=== PATIENT | female | born 1985 | race Caucasian/White ===

== ENCOUNTER 2017-04-20 09:02 | Emergency (ER) | payer OTHER ==
[~2017-04-20] VITALS: Ht 165.1 cm; Wt 117.9 kg
[~2017-04-20 09:02] MED LIST: ACET325; ACET500; ALBU.083IS; ALBU90I INH; ALBU90OI INH; AMOCLA500 PO; AMOX500 PO; ANCEF 1 GM1 GM/50 ML IV; ATEN50 PO; BENZ100A PO; BUPR1 PO; CELE200 PO; CEPH500 PO; CETI10 PO; CLIN150 PO; CLIN300 PO; CLON.1 PO; CLOT1TC TOP; COMBIVENT RESPIM4 GM INH; CYCL10; CYCL10 PO; CYMBALTA; Cymbalta30 MG PO; DIAZ5 PO; DIPH25; DIPH50 PO; DOXY100 PO; DULO30 PO; DULO60 PO; Diflucan100 MG PO; ESCI5 PO; ESTNORT; FLUC150A PO; FLUC200 PO; GABA100 PO; GABA300 PO; GABA400 PO; GABA600 PO; GABAPENTIN; HYDACE10 PO; HYDACE5 PO; HYDCHLSU PO; HYDPAM50 PO; IBUP800; KETO10 PO; LANS30EC PO; LEVO750 PO; LIDO2L MM; LORA1 PO; MEDR150I; METCAR750; METO25 PO; METO50 PO; MULVITMINE; NAPR500 PO; NYST100SU PO; NYST100TC TOP; OMEP20ER PO; ONDA4 PO; ONDA4ODT MM; OXYACE10 PO; OXYACE5T PO; OXYACE7.5T PO; OXYC5 PO; PENNAL50 PO; PENVK500 PO; PERM5TC TOP; PIOG15 PO; PRAZ1 PO; PRAZ2 PO; PRAZOSIN 2 MG; PRED10 PO; PRED20 PO; PRILOSEC; PRILOSEC OTC; PROACE100 PO; PROM25 PO; RANI150 PO; RXCYCL10 PO; RXHYD5325 PO; RXHYDACE PO; RXOXYACE PO; RXSULTRIDS PO; RXTRAM50 PO; SUBOXONE; SUBOXONE 12 MG1 EACH SL; SUBOXONE 2 MG-1 EACH SL; SUCR1 PO; SULTRIDS PO; TERC.4TC PV; TRAM50 PO; TRAZ100; TRAZ50; TRAZ50 PO; TRAZADONE; TYLENOL AND MOTRIN; TYLENOL/ADVIL; TYLENOL/MOTRIN PRN; WARF3 PO; Zofran8 MG PO
[2017-04-20 11:50] LABS: Calcium, Ionized (POC) 1.08 mmol/L (1.10-1.46); Chloride (POC) 100 mmol/L (98-108); Glucose (ISTAT POC) 115 mg/dL (70-99); Hemoglobin (POC) 15.6 g/dL (12.0-16.0); Potassium (POC) 4.2 mmol/L (3.5-5.5); Sodium (POC) 137 mmol/L (135-148); Total CO2 (POC) 26 mmol/L (21-32)
[2017-04-20] MEDS ORDERED: PROM25 PO (12:19)
[2017-09-06] MEDS ORDERED: Lisinopril2.5 MG PO (16:01)
[2017-09-06] MEDS ORDERED: Prilosec Otc20 MG PO (16:01)
[2017-09-06] MEDS ORDERED: PROM25 PO (16:50)
[2017-09-06] MEDS ORDERED: CLON.2 PO (16:50)
[2017-10-21] MEDS ORDERED: PROM25 PO (16:26)
[2017-10-21] MEDS ORDERED: Catapres0.1 MG PO (16:26)
[2017-11-21] MEDS ORDERED: Lisinopril2.5 MG (17:25)
[2017-11-21] MEDS ORDERED: QUET100 PO (17:25)
[2017-11-21] MEDS ORDERED: Clonidine HCl0.2 MG PO (20:25)
[2017-11-21] MEDS ORDERED: Zofran Odt4 MG SL (20:29)
[2018-01-25] MEDS ORDERED: GABA400 PO (15:57)
[2018-01-25] MEDS ORDERED: ALBU90OI INH (15:58)
[2018-01-25] MEDS ORDERED: PROM25S (15:59)
[2018-01-25] MEDS ORDERED: NARCAN4 MG (15:59)
[2018-01-25] MEDS ORDERED: Milk Of Ma400 MG/5 M PO (16:01)
[2018-01-25] MEDS ORDERED: DULO60 PO (16:02)
[2018-01-25] MEDS ORDERED: METO100ER PO (16:03)
[2018-01-25] MEDS ORDERED: OLAN10 PO (16:03)
== END 2017-04-20 12:30 | disposition home or self-care (01) ==
LOC: ER 09:02
PROVIDERS: Emergency Medicine
DX: G43.909 Migraine, unspecified, not intractable, without status migrainosus (principal); R11.2 Nausea with vomiting, unspecified; E86.0 Dehydration; F32.9 Major depressive disorder, single episode, unspecified; F17.210 Nicotine dependence, cigarettes, uncomplicated; Z88.5 Allergy status to narcotic agent; Z88.8 Allergy status to other drugs, medicaments and biological substances; Z79.899 Other long term (current) drug therapy
CPT/HCPCS: 36415; 80047; 85014; 96361; 96374; 96375; 99284; J1200; J1630; J1885; J2550; J7030

== ENCOUNTER 2017-09-18 17:23 | Emergency (ER) | payer OTHER ==
[~2017-09-18] VITALS: Ht 167.6 cm; Wt 104.3 kg
[~2017-09-18 17:23] MED LIST changes: +CLON.2 PO; +Lisinopril2.5 MG PO; +Prilosec Otc20 MG PO
[2017-09-18 17:54] LABS: Source, Urine Voided
[2017-09-18 18:00] LABS: Blood, Urine 4+ (Neg); Glucose Qualitative, Urine Neg (Neg); Ketones, Urine 4+ (Neg); Leukocyte Esterase, Urine 1+ (Neg); Nitrite, Urine Neg (Neg); Protein, Urine 2+ (Neg); Specific Gravity, Urine 1.015 (1.003-1.022); Urobilinogen, Urine 2+ (Normal)
[2017-09-18 18:25] LABS: Appearance, Urine Cloudy (Clear); Bilirubin, Urine 1+ (Neg); Color, Urine Amber (P-Yellow)
[2017-09-18 18:27] LABS: Source, Urine Voided
[2017-09-18 18:45] LABS: BASOPHILS ABSOLUTE AUTO 0.05 K/mm3 (0.00-0.23); BASOPHILS PERCENT AUTO 0 % (0-2); EOSINOPHILS PERCENT AUTO 0 % (0-6); Hematocrit 44.4 % (33.0-51.0); Hemoglobin 14.7 g/dL (11.5-16.0); IMMATURE GRAN PERCENT AUTO 1 % (0-1); LYMPHOCYTES ABSOLUTE AUTO 1.03 K/mm3 (0.84-5.20); LYMPHOCYTES PERCENT AUTO 5 % (21-46); MONOCYTES ABSOLUTE AUTO 0.78 K/mm3 (0.16-1.47); MONOCYTES PERCENT AUTO 4 % (4-13); Mean Corpuscular HGB 26.6 pg (26.0-34.0); Mean Corpuscular HGB Conc 33.1 g/dL (31.5-36.5); Mean Corpuscular Volume 80 fL (80-100); Mean Platelet Volume 9.5 fL (9.1-12.4); NEUTROPHILS PERCENT AUTO 91 % (41-73); Platelet Count 493 K/mm3 (150-400); RDW Coefficient Variation 18.8 % (11.7-14.2); RDW Standard Deviation 52.2 fL (35.1-46.3); Red Blood Cell Count 5.53 M/mm3 (3.80-5.20); White Blood Cell Count 21.76 K/mm3 (4.00-11.30)
[2017-09-18 18:55] LABS: Alanine Aminotransfer (ALT/SGP 19 U/L (12-78); Albumin, Blood 3.6 g/dL (3.4-5.0); Albumin/Globulin Ratio 0.7 (0.8-1.8); Alk Phos 86 U/L (50-136); Anion Gap 14 mmol/L (6-16); Aspartate Aminotrans (AST/SGOT 18 U/L (12-37); Bilirubin, Total 0.3 mg/dL (0.1-1.0); Blood Urea Nitrogen 10 mg/dL (8-24); Bun/Creatinine Ratio 13.7 (12.0-20.0); CO2, Blood 18 mmol/L (21-32); Calcium, Blood 9.5 mg/dL (8.5-10.1); Chloride, Blood 105 mmol/L (98-108); Creatinine, Blood 0.73 mg/dL (0.40-1.00); Globulin, Blood 5.2 g/dL (2.2-4.0); Glomerular Filtration Rate >60 (60-); Glucose, Blood 91 mg/dL (70-99); Potassium, Blood 3.7 mmol/L (3.5-5.5); Sodium, Blood 137 mmol/L (136-145); Total Protein, Blood 8.8 g/dL (6.4-8.2)
[2017-09-18 19:39] LABS: Bacteria Many /hpf; Red Blood Cells, Urine 0-2 /hpf (0-2); Squamous Epithelial Cells Mod /hpf (Few)
[2017-09-18] MEDS ORDERED: PROM25 PO (20:32)
== END 2017-09-18 20:51 | disposition home or self-care (01) ==
LOC: ER 17:23
PROVIDERS: Emergency Medicine
DX: R11.2 Nausea with vomiting, unspecified (principal); Z76.5 Malingerer [conscious simulation]; K21.9 Gastro-esophageal reflux disease without esophagitis; F17.200 Nicotine dependence, unspecified, uncomplicated; Z79.899 Other long term (current) drug therapy
CPT/HCPCS: 36415; 80053; 81015; 81025; 83690; 85025; 87086; 96361; 96374; 96375; 99284-25; J0780; J1200; J1630; J2405; J2550; J7030

== ENCOUNTER 2017-09-19 00:54 | Emergency (ER) | payer OTHER ==
[~2017-09-19] VITALS: Ht 167.6 cm; Wt 104.3 kg
[2017-09-19 03:27] LABS: BASOPHILS ABSOLUTE AUTO 0.03 K/mm3 (0.00-0.23); BASOPHILS PERCENT AUTO 0 % (0-2); EOSINOPHILS ABSOLUTE AUTO 0.01 K/mm3 (0.00-0.68); EOSINOPHILS PERCENT AUTO 0 % (0-6); Hematocrit 39.2 % (33.0-51.0); Hemoglobin 13.1 g/dL (11.5-16.0); IMMATURE GRAN ABSOLUTE AUTO 0.07 K/mm3 (0.00-0.10); IMMATURE GRAN PERCENT AUTO 0 % (0-1); LYMPHOCYTES ABSOLUTE AUTO 2.36 K/mm3 (0.84-5.20); LYMPHOCYTES PERCENT AUTO 11 % (21-46); MONOCYTES ABSOLUTE AUTO 1.19 K/mm3 (0.16-1.47); MONOCYTES PERCENT AUTO 6 % (4-13); Mean Corpuscular HGB 26.9 pg (26.0-34.0); Mean Corpuscular HGB Conc 33.4 g/dL (31.5-36.5); Mean Corpuscular Volume 81 fL (80-100); Mean Platelet Volume 9.3 fL (9.1-12.4); NEUTROPHILS ABSOLUTE AUTO 16.96 K/mm3 (1.96-9.15); NEUTROPHILS PERCENT AUTO 82 % (41-73); Platelet Count 438 K/mm3 (150-400); RDW Coefficient Variation 18.3 % (11.7-14.2); RDW Standard Deviation 54.3 fL (35.1-46.3); Red Blood Cell Count 4.87 M/mm3 (3.80-5.20); White Blood Cell Count 20.62 K/mm3 (4.00-11.30)
[2017-09-19 03:45] LABS: Alanine Aminotransfer (ALT/SGP 18 U/L (12-78); Albumin, Blood 3.3 g/dL (3.4-5.0); Albumin/Globulin Ratio 0.7 (0.8-1.8); Alk Phos 73 U/L (50-136); Anion Gap 15 mmol/L (6-16); Aspartate Aminotrans (AST/SGOT 15 U/L (12-37); Bilirubin, Total 0.4 mg/dL (0.1-1.0); Blood Urea Nitrogen 7 mg/dL (8-24); CO2, Blood 19 mmol/L (21-32); Calcium, Blood 8.9 mg/dL (8.5-10.1); Chloride, Blood 106 mmol/L (98-108); Globulin, Blood 4.8 g/dL (2.2-4.0); Glomerular Filtration Rate >60 (60-); Glucose, Blood 71 mg/dL (70-99); Potassium, Blood 3.8 mmol/L (3.5-5.5); Sodium, Blood 140 mmol/L (136-145); Total Protein, Blood 8.1 g/dL (6.4-8.2)
[2017-09-19 04:21] LABS: Source, Urine Clean Catch
[2017-09-19 04:24] LABS: Bilirubin, Urine Neg (Neg); Blood, Urine 4+ (Neg); Glucose Qualitative, Urine Neg (Neg); Ketones, Urine 4+ (Neg); Leukocyte Esterase, Urine 1+ (Neg); Nitrite, Urine Neg (Neg); Protein, Urine 1+ (Neg); Specific Gravity, Urine 1.015 (1.003-1.022); Urobilinogen, Urine NORM (Normal)
[2017-09-19 04:32] LABS: Appearance, Urine Clear (Clear); Bacteria Many /hpf; Color, Urine Yellow (P-Yellow); Mucus Light (0-Heavy); Red Blood Cells, Urine 0-2 /hpf (0-2); Squamous Epithelial Cells Many /hpf (Few); White Blood Cells, Urine 0-2 /hpf (0-5)
== END 2017-09-19 05:02 | disposition home or self-care (01) ==
LOC: ER 00:54
PROVIDERS: Emergency Medicine
DX: R11.2 Nausea with vomiting, unspecified (principal); F32.9 Major depressive disorder, single episode, unspecified; F17.210 Nicotine dependence, cigarettes, uncomplicated; Z79.899 Other long term (current) drug therapy
CPT/HCPCS: 80053; 81001; 83690; 85025; 87086; 96361; 96374; 99284-25; J2550; J7120

== ENCOUNTER → 2017-09-27 | Outpatient (CLI) | payer OTHER ==
[~2017-09-27] MED LIST changes: +BUPRENORPHIN-N1 EACH SL; +Flagyl500 MG PO; +QUET100 PO; +ZOLP5 PO
[2017-09-27 18:05] LABS: BASOPHILS ABSOLUTE AUTO 0.07 K/mm3 (0.00-0.23); BASOPHILS PERCENT AUTO 0 % (0-2); EOSINOPHILS PERCENT AUTO 1 % (0-6); Hematocrit 47.3 % (33.0-51.0); Hemoglobin 15.9 g/dL (11.5-16.0); IMMATURE GRAN ABSOLUTE AUTO 0.09 K/mm3 (0.00-0.10); IMMATURE GRAN PERCENT AUTO 1 % (0-1); LYMPHOCYTES ABSOLUTE AUTO 3.05 K/mm3 (0.84-5.20); LYMPHOCYTES PERCENT AUTO 18 % (21-46); MONOCYTES ABSOLUTE AUTO 0.86 K/mm3 (0.16-1.47); MONOCYTES PERCENT AUTO 5 % (4-13); Mean Corpuscular HGB 27.2 pg (26.0-34.0); Mean Corpuscular HGB Conc 33.6 g/dL (31.5-36.5); Mean Corpuscular Volume 81 fL (80-100); Mean Platelet Volume 9.7 fL (9.1-12.4); NEUTROPHILS ABSOLUTE AUTO 12.91 K/mm3 (1.96-9.15); NEUTROPHILS PERCENT AUTO 76 % (41-73); Platelet Count 597 K/mm3 (150-400); RDW Coefficient Variation 19.9 % (11.7-14.2); Red Blood Cell Count 5.84 M/mm3 (3.80-5.20); White Blood Cell Count 17.08 K/mm3 (4.00-11.30)
[2017-09-27 18:12] LABS: Bun/Creatinine Ratio 8.3 (12.0-20.0); Calcium, Blood 9.7 mg/dL (8.5-10.1); Creatinine, Blood 1.33 mg/dL (0.40-1.00); Potassium, Blood 3.9 mmol/L (3.5-5.5)
== END ==
LOC: LAB EV 18:00 → LAB SHORT 18:00
PROVIDERS: Family Medicine
DX: R10.813 Right lower quadrant abdominal tenderness (principal)
CPT/HCPCS: 80048; 85025

== ENCOUNTER 2017-09-28 14:00 | Emergency (ER) | payer OTHER ==
[~2017-09-28] VITALS: Ht 167.6 cm; Wt 104.3 kg
[~2017-09-28 14:00] MED LIST changes: -BUPRENORPHIN-N1 EACH SL; -Flagyl500 MG PO; -QUET100 PO; -ZOLP5 PO
[2017-09-28 15:02] LABS: BASOPHILS ABSOLUTE AUTO 0.05 K/mm3 (0.00-0.23); BASOPHILS PERCENT AUTO 0 % (0-2); EOSINOPHILS ABSOLUTE AUTO 0.13 K/mm3 (0.00-0.68); EOSINOPHILS PERCENT AUTO 1 % (0-6); Hematocrit 45.1 % (33.0-51.0); Hemoglobin 14.6 g/dL (11.5-16.0); IMMATURE GRAN ABSOLUTE AUTO 0.08 K/mm3 (0.00-0.10); IMMATURE GRAN PERCENT AUTO 0 % (0-1); LYMPHOCYTES ABSOLUTE AUTO 1.98 K/mm3 (0.84-5.20); LYMPHOCYTES PERCENT AUTO 11 % (21-46); MONOCYTES ABSOLUTE AUTO 1.56 K/mm3 (0.16-1.47); MONOCYTES PERCENT AUTO 9 % (4-13); Mean Corpuscular HGB 26.2 pg (26.0-34.0); Mean Corpuscular HGB Conc 32.4 g/dL (31.5-36.5); Mean Corpuscular Volume 81 fL (80-100); Mean Platelet Volume 9.8 fL (9.1-12.4); NEUTROPHILS ABSOLUTE AUTO 14.14 K/mm3 (1.96-9.15); NEUTROPHILS PERCENT AUTO 79 % (41-73); Platelet Count 530 K/mm3 (150-400); RDW Coefficient Variation 19.7 % (11.7-14.2); RDW Standard Deviation 55.6 fL (35.1-46.3); Red Blood Cell Count 5.57 M/mm3 (3.80-5.20); White Blood Cell Count 17.94 K/mm3 (4.00-11.30)
[2017-09-28 15:11] LABS: Albumin, Blood 3.3 g/dL (3.4-5.0); Albumin/Globulin Ratio 0.6 (0.8-1.8); Bilirubin, Total 0.3 mg/dL (0.1-1.0); Bun/Creatinine Ratio 9.1 (12.0-20.0); Calcium, Blood 9.4 mg/dL (8.5-10.1); Creatinine, Blood 1.21 mg/dL (0.40-1.00); Globulin, Blood 5.3 g/dL (2.2-4.0); Potassium, Blood 3.6 mmol/L (3.5-5.5); Total Protein, Blood 8.6 g/dL (6.4-8.2)
[2017-09-28] MEDS ORDERED: BUPRENORPHIN-N1 EACH SL (15:13)
[2017-09-28] MEDS ORDERED: GABA400 PO (15:13)
[2017-09-28] MEDS ORDERED: QUET100 PO (15:14)
[2017-09-28] MEDS ORDERED: ZOLP5 PO (15:14)
[2017-09-28 15:21] LABS: Source, Urine Clean Catch
[2017-09-28 15:27] LABS: Appearance, Urine Hazy (Clear); Bilirubin, Urine Neg (Neg); Blood, Urine 1+ (Neg); Color, Urine Yellow (P-Yellow); Glucose Qualitative, Urine Neg (Neg); Ketones, Urine Neg (Neg); Leukocyte Esterase, Urine Neg (Neg); Nitrite, Urine Neg (Neg); Protein, Urine 1+ (Neg); Urobilinogen, Urine NORM (Normal)
[2017-09-28 16:04] LABS: Bacteria Many /hpf; Red Blood Cells, Urine 0-2 /hpf (0-2); Squamous Epithelial Cells Many /hpf (Few); White Blood Cells, Urine 0-2 /hpf (0-5)
[2017-09-28] MEDS ORDERED: ONDA4ODT MM (20:38)
[2017-09-28] MEDS ORDERED: Flagyl500 MG PO (20:38)
[2017-09-28 21:20] LABS: U Amphetamine Screen Not Detected
[2017-09-28 21:21] LABS: U Barbituate Screen Not Detected; U Benzodiazapine Screen Not Detected; U Buprenorphine Screen DETECTED; U Cannabinoids Screen Not Detected; U Cocaine Screen Not Detected; U Methadone Screen Not Detected; U Methamphetamine Screen Not Detected; U Opiates Screen Not Detected; U Oxycodone Screen Not Detected; U Phencyclidine Screen Not Detected; U Propoxyphene Screen Not Detected
== END 2017-09-28 21:08 | disposition home or self-care (01) ==
LOC: ER 14:00
PROVIDERS: Emergency Medicine; Physician Assistant
DX: K52.9 Noninfective gastroenteritis and colitis, unspecified (principal); E86.0 Dehydration; N17.9 Acute kidney failure, unspecified; Z88.8 Allergy status to other drugs, medicaments and biological substances; Z88.5 Allergy status to narcotic agent; Z79.899 Other long term (current) drug therapy; F17.210 Nicotine dependence, cigarettes, uncomplicated; F32.9 Major depressive disorder, single episode, unspecified
CPT/HCPCS: 36415; 80053; 81001; 81025; 82947; 83605; 83690; 85025; 87086; 96361; 96365; 96375; 99284-25; J0696; J1885; J2405; J2550; J7030

== ENCOUNTER 2017-10-18 23:21 | Emergency (ER) | payer OTHER ==
[~2017-10-18] VITALS: Ht 167.6 cm; Wt 104.3 kg
[~2017-10-18 23:21] MED LIST changes: +BUPRENORPHIN-N1 EACH SL; +Flagyl500 MG PO; +QUET100 PO; +ZOLP5 PO
[2017-10-19] MEDS ORDERED: SERT50 PO (00:45)
[2017-10-19 02:06] LABS: Source, Urine Clean Catch
[2017-10-19 02:09] LABS: BASOPHILS ABSOLUTE AUTO 0.06 K/mm3 (0.00-0.23); BASOPHILS PERCENT AUTO 1 % (0-2); EOSINOPHILS ABSOLUTE AUTO 0.18 K/mm3 (0.00-0.68); EOSINOPHILS PERCENT AUTO 1 % (0-6); Hematocrit 42.8 % (33.0-51.0); Hemoglobin 14.5 g/dL (11.5-16.0); IMMATURE GRAN ABSOLUTE AUTO 0.05 K/mm3 (0.00-0.10); IMMATURE GRAN PERCENT AUTO 0 % (0-1); LYMPHOCYTES PERCENT AUTO 28 % (21-46); MONOCYTES PERCENT AUTO 6 % (4-13); Mean Corpuscular HGB 28.2 pg (26.0-34.0); Mean Corpuscular HGB Conc 33.9 g/dL (31.5-36.5); Mean Corpuscular Volume 83 fL (80-100); Mean Platelet Volume 8.9 fL (9.1-12.4); NEUTROPHILS ABSOLUTE AUTO 8.21 K/mm3 (1.96-9.15); NEUTROPHILS PERCENT AUTO 64 % (41-73); Platelet Count 542 K/mm3 (150-400); RDW Coefficient Variation 21.3 % (11.7-14.2); RDW Standard Deviation 62.4 fL (35.1-46.3); Red Blood Cell Count 5.14 M/mm3 (3.80-5.20)
[2017-10-19 02:10] LABS: Bilirubin, Urine Neg (Neg); Blood, Urine 2+ (Neg); Glucose Qualitative, Urine Neg (Neg); Ketones, Urine Neg (Neg); Leukocyte Esterase, Urine 1+ (Neg); Nitrite, Urine Neg (Neg); Protein, Urine 1+ (Neg); Specific Gravity, Urine 1.015 (1.003-1.022); Urobilinogen, Urine NORM (Normal)
[2017-10-19 02:15] LABS: Appearance, Urine Clear (Clear); Color, Urine Yellow (P-Yellow)
[2017-10-19 02:16] LABS: Bacteria Mod /hpf; Mucus Light (0-Heavy); Red Blood Cells, Urine 0-2 /hpf (0-2); Squamous Epithelial Cells Few /hpf (Few); White Blood Cells, Urine 0-2 /hpf (0-5)
[2017-10-19 02:26] LABS: Alanine Aminotransfer (ALT/SGP 17 U/L (12-78); Albumin, Blood 3.1 g/dL (3.4-5.0); Albumin/Globulin Ratio 0.6 (0.8-1.8); Alk Phos 98 U/L (50-136); Anion Gap 9 mmol/L (6-16); Aspartate Aminotrans (AST/SGOT 19 U/L (12-37); Bilirubin, Total 0.3 mg/dL (0.1-1.0); Blood Urea Nitrogen 5 mg/dL (8-24); Bun/Creatinine Ratio 6.6 (12.0-20.0); CO2, Blood 26 mmol/L (21-32); Chloride, Blood 104 mmol/L (98-108); Creatinine, Blood 0.76 mg/dL (0.40-1.00); Globulin, Blood 5.3 g/dL (2.2-4.0); Glomerular Filtration Rate >60 (60-); Glucose, Blood 85 mg/dL (70-99); Potassium, Blood 3.5 mmol/L (3.5-5.5); Sodium, Blood 139 mmol/L (136-145); Total Protein, Blood 8.4 g/dL (6.4-8.2)
[2017-10-21] MEDS ORDERED: PROM25 PO (16:26)
[2017-10-21] MEDS ORDERED: Catapres0.1 MG PO (16:26)
== END 2017-10-19 03:30 | disposition home or self-care (01) ==
LOC: ER 23:21
PROVIDERS: Emergency Medicine
DX: R11.2 Nausea with vomiting, unspecified (principal); F15.93 Other stimulant use, unspecified with withdrawal; F17.210 Nicotine dependence, cigarettes, uncomplicated; Z91.048 Other nonmedicinal substance allergy status; Z88.8 Allergy status to other drugs, medicaments and biological substances; Z88.5 Allergy status to narcotic agent; Z79.899 Other long term (current) drug therapy
CPT/HCPCS: 36415; 80053; 81001; 81025; 83690; 85025; 87086; 96374; 99283-25; J2550

== ENCOUNTER 2018-02-07 08:53 | Day surgery (SDC) | payer OTHER ==
[~2018-02-07] VITALS: Ht 167.6 cm; Wt 111.8 kg
[~2018-02-07 08:53] MED LIST changes: +Catapres0.1 MG PO; +Clonidine HCl0.2 MG PO; +Lisinopril2.5 MG; +METO100ER PO; +Milk Of Ma400 MG/5 M PO; +NARCAN4 MG; +OLAN10 PO; +PROM25S; +SERT50 PO; +Zofran Odt4 MG SL
== END 2018-02-07 11:12 | disposition home or self-care (01) ==
LOC: ORSCSDS 08:53
PROVIDERS: Internal Medicine Gastroenterology
PROC: 0DB68ZX Excision of Stomach, Via Natural or Artificial Opening Endoscopic, Diagnostic (ICD-10-PCS; principal; 2018-02-07 12:15)
DX: R11.2 Nausea with vomiting, unspecified (principal); K21.9 Gastro-esophageal reflux disease without esophagitis; R10.13 Epigastric pain; K29.70 Gastritis, unspecified, without bleeding; I10 Essential (primary) hypertension; E66.9 Obesity, unspecified; Z68.39 Body mass index [BMI] 39.0-39.9, adult; Z79.899 Other long term (current) drug therapy
CPT/HCPCS: 88305; 88342; J7120

== ENCOUNTER → 2018-02-11 | Outpatient (CLI) | payer OTHER ==
[~2018-02-11] MED LIST changes: +Lopressor 50 mg50 MG PO; +METO50ER PO; +Nortriptyline H10 MG PO
== END | disposition home or self-care (01) ==
LOC: LAB 15:00 → LAB SHORT 15:00 → LAB FUT 01-15 15:35
DX: R11.2 Nausea with vomiting, unspecified (principal); R10.9 Unspecified abdominal pain
CPT/HCPCS: 83993

== ENCOUNTER 2018-03-15 15:51 | Emergency (ER) | payer OTHER ==
[~2018-03-15] VITALS: Ht 165.1 cm; Wt 99.8 kg
[~2018-03-15 15:51] MED LIST changes: -Lopressor 50 mg50 MG PO; -METO50ER PO; -Nortriptyline H10 MG PO
[2018-03-15 16:22] LABS: BASOPHILS ABSOLUTE AUTO 0.07 K/mm3 (0.00-0.23); BASOPHILS PERCENT AUTO 0 % (0-2); EOSINOPHILS ABSOLUTE AUTO 0.06 K/mm3 (0.00-0.68); EOSINOPHILS PERCENT AUTO 0 % (0-6); Hematocrit 46.6 % (33.0-51.0); IMMATURE GRAN ABSOLUTE AUTO 0.11 K/mm3 (0.00-0.10); IMMATURE GRAN PERCENT AUTO 1 % (0-1); LYMPHOCYTES ABSOLUTE AUTO 2.29 K/mm3 (0.84-5.20); LYMPHOCYTES PERCENT AUTO 11 % (21-46); MONOCYTES ABSOLUTE AUTO 1.22 K/mm3 (0.16-1.47); MONOCYTES PERCENT AUTO 6 % (4-13); Mean Corpuscular HGB 29.1 pg (26.0-34.0); Mean Corpuscular HGB Conc 32.2 g/dL (31.5-36.5); Mean Corpuscular Volume 91 fL (80-100); NEUTROPHILS ABSOLUTE AUTO 17.58 K/mm3 (1.96-9.15); NEUTROPHILS PERCENT AUTO 83 % (41-73); Platelet Count 455 K/mm3 (150-400); RDW Coefficient Variation 15.8 % (11.7-14.2); RDW Standard Deviation 52.5 fL (35.1-46.3); Red Blood Cell Count 5.15 M/mm3 (3.80-5.20); White Blood Cell Count 21.33 K/mm3 (4.00-11.30)
[2018-03-15 16:47] LABS: Troponin I <0.015 ng/mL (0.000-0.040)
[2018-03-15 16:48] LABS: Alanine Aminotransfer (ALT/SGP 21 U/L (12-78); Albumin, Blood 3.5 g/dL (3.4-5.0); Albumin/Globulin Ratio 0.7 (0.8-1.8); Alk Phos 86 U/L (50-136); Anion Gap 10 mmol/L (6-16); Aspartate Aminotrans (AST/SGOT 21 U/L (12-37); Bilirubin, Total 0.2 mg/dL (0.1-1.0); Blood Urea Nitrogen 8 mg/dL (8-24); Bun/Creatinine Ratio 6.5 (12.0-20.0); CO2, Blood 22 mmol/L (21-32); Calcium, Blood 9.5 mg/dL (8.5-10.1); Chloride, Blood 102 mmol/L (98-108); Creatinine, Blood 1.24 mg/dL (0.40-1.00); Globulin, Blood 5.2 g/dL (2.2-4.0); Glomerular Filtration Rate 52 (60-); Glucose, Blood 101 mg/dL (70-99); Potassium, Blood 4.9 mmol/L (3.5-5.5); Sodium, Blood 134 mmol/L (136-145); Thyroid Stimulating Hormone 0.797 uIU/mL (0.360-4.800); Total Protein, Blood 8.7 g/dL (6.4-8.2)
[2018-03-15 17:16] LABS: Source, Urine Clean Catch
[2018-03-15 17:18] LABS: Bilirubin, Urine Neg (Neg); Blood, Urine 2+ (Neg); Glucose Qualitative, Urine Neg (Neg); Ketones, Urine Neg (Neg); Leukocyte Esterase, Urine Neg (Neg); Nitrite, Urine Neg (Neg); Protein, Urine Neg (Neg); Specific Gravity, Urine 1.005 (1.003-1.022); Urobilinogen, Urine NORM (Normal)
[2018-03-15 17:30] LABS: Appearance, Urine Clear (Clear); Color, Urine Yellow (P-Yellow)
[2018-03-15 17:31] LABS: Bacteria Few /hpf; Squamous Epithelial Cells Few /hpf (Few); White Blood Cells, Urine 0-2 /hpf (0-5)
[2018-03-15 17:40] LABS: U Amphetamine Screen Not Detected; U Barbituate Screen Not Detected; U Benzodiazapine Screen Not Detected; U Buprenorphine Screen DETECTED; U Cannabinoids Screen Not Detected; U Cocaine Screen Not Detected; U Methadone Screen Not Detected; U Methamphetamine Screen Not Detected; U Opiates Screen Not Detected; U Oxycodone Screen Not Detected; U Phencyclidine Screen Not Detected; U Propoxyphene Screen Not Detected
[2018-03-15] MEDS ORDERED: METO50ER PO (17:55)
[2018-03-15] MEDS ORDERED: CLON.2 PO (21:48)
[2018-03-15] MEDS ORDERED: Lisinopril2.5 MG PO (21:56)
[2018-03-15] MEDS ORDERED: Lopressor 50 mg50 MG PO (21:56)
== END 2018-03-15 22:19 | disposition home or self-care (01) ==
LOC: ER 15:51
PROVIDERS: Emergency Medicine; Physician Assistant
DX: R00.0 Tachycardia, unspecified (principal); F19.939 Other psychoactive substance use, unspecified with withdrawal, unspecified; F32.9 Major depressive disorder, single episode, unspecified; F17.210 Nicotine dependence, cigarettes, uncomplicated; Z79.899 Other long term (current) drug therapy; Z91.048 Other nonmedicinal substance allergy status; Z88.5 Allergy status to narcotic agent; Z88.6 Allergy status to analgesic agent; Z88.8 Allergy status to other drugs, medicaments and biological substances
CPT/HCPCS: 36415; 80053; 81001; 81025; 83735; 84443; 84484; 85025; 93005; 93010; 96361; 96365; 96375; 96376; 99285-25; J0153; J2060; J2550; J7030

== ENCOUNTER 2018-03-27 18:23 | Emergency (ER) | payer OTHER ==
[~2018-03-27] VITALS: Ht 167.6 cm; Wt 111.1 kg
[~2018-03-27 18:23] MED LIST changes: +Lopressor 50 mg50 MG PO; +METO50ER PO
[2018-03-27 21:35] LABS: BASOPHILS ABSOLUTE AUTO 0.04 K/mm3 (0.00-0.23); BASOPHILS PERCENT AUTO 0 % (0-2); EOSINOPHILS ABSOLUTE AUTO 0.05 K/mm3 (0.00-0.68); EOSINOPHILS PERCENT AUTO 0 % (0-6); Hematocrit 44.8 % (33.0-51.0); Hemoglobin 15.2 g/dL (11.5-16.0); IMMATURE GRAN ABSOLUTE AUTO 0.04 K/mm3 (0.00-0.10); IMMATURE GRAN PERCENT AUTO 0 % (0-1); LYMPHOCYTES ABSOLUTE AUTO 3.46 K/mm3 (0.84-5.20); LYMPHOCYTES PERCENT AUTO 30 % (21-46); MONOCYTES ABSOLUTE AUTO 0.71 K/mm3 (0.16-1.47); MONOCYTES PERCENT AUTO 6 % (4-13); Mean Corpuscular HGB 29.1 pg (26.0-34.0); Mean Corpuscular HGB Conc 33.9 g/dL (31.5-36.5); NEUTROPHILS ABSOLUTE AUTO 7.32 K/mm3 (1.96-9.15); NEUTROPHILS PERCENT AUTO 63 % (41-73); RDW Coefficient Variation 15.5 % (11.7-14.2); Red Blood Cell Count 5.22 M/mm3 (3.80-5.20); White Blood Cell Count 11.62 K/mm3 (4.00-11.30)
[2018-03-27 21:37] LABS: Mean Corpuscular Volume 86 fL (80-100); Mean Platelet Volume 8.9 fL (9.1-12.4); Platelet Count 467 K/mm3 (150-400)
[2018-03-27 21:56] LABS: Alanine Aminotransfer (ALT/SGP 17 U/L (12-78); Albumin, Blood 3.7 g/dL (3.4-5.0); Albumin/Globulin Ratio 0.7 (0.8-1.8); Alk Phos 73 U/L (50-136); Anion Gap 9 mmol/L (6-16); Aspartate Aminotrans (AST/SGOT 16 U/L (12-37); Bilirubin, Total 0.3 mg/dL (0.1-1.0); Blood Urea Nitrogen 5 mg/dL (8-24); Bun/Creatinine Ratio 6.1 (12.0-20.0); CO2, Blood 24 mmol/L (21-32); Calcium, Blood 9.5 mg/dL (8.5-10.1); Chloride, Blood 105 mmol/L (98-108); Creatinine, Blood 0.82 mg/dL (0.40-1.00); Glomerular Filtration Rate >60 (60-); Glucose, Blood 105 mg/dL (70-99); Potassium, Blood 3.5 mmol/L (3.5-5.5); Sodium, Blood 138 mmol/L (136-145); Total Protein, Blood 8.7 g/dL (6.4-8.2); Troponin I <0.015 ng/mL (0.000-0.040)
[2018-03-27] MEDS ORDERED: Nortriptyline H10 MG PO (22:03)
[2018-03-27] MEDS ORDERED: CLON.2 PO (22:04)
== END 2018-03-27 23:04 | disposition home or self-care (01) ==
LOC: ER 18:23
PROVIDERS: Emergency Medicine
DX: F19.939 Other psychoactive substance use, unspecified with withdrawal, unspecified (principal); Z88.8 Allergy status to other drugs, medicaments and biological substances; Z88.5 Allergy status to narcotic agent; Z88.6 Allergy status to analgesic agent; Z79.899 Other long term (current) drug therapy; F17.210 Nicotine dependence, cigarettes, uncomplicated; F32.9 Major depressive disorder, single episode, unspecified
CPT/HCPCS: 36415; 71046; 80053; 83690; 84484; 85025; 93005; 93010; 99284-25

== ENCOUNTER 2018-03-28 14:11 | Emergency (ER) | payer OTHER ==
[~2018-03-28] VITALS: Ht 167.6 cm; Wt 111.1 kg
[~2018-03-28 14:11] MED LIST changes: +Nortriptyline H10 MG PO
== END 2018-03-28 17:19 | disposition home or self-care (01) ==
LOC: ER 14:11
DX: F19.939 Other psychoactive substance use, unspecified with withdrawal, unspecified (principal); F32.9 Major depressive disorder, single episode, unspecified; F41.9 Anxiety disorder, unspecified; F17.210 Nicotine dependence, cigarettes, uncomplicated; Z88.5 Allergy status to narcotic agent; Z88.6 Allergy status to analgesic agent; Z88.8 Allergy status to other drugs, medicaments and biological substances; Z79.899 Other long term (current) drug therapy
CPT/HCPCS: 36415; 96361; 96374; 96375; 99284-25; J1200; J1630; J2550; J7030

== ENCOUNTER 2018-06-05 15:13 | Emergency (ER) | payer OTHER ==
[~2018-06-05] VITALS: Ht 167.6 cm; Wt 90.7 kg
[~2018-06-05 15:13] MED LIST changes: -OLAN10 PO; +Zyprexa Zydis15 MG PO
[2018-06-05] MEDS ORDERED: Ativan1 MG SL (17:32)
[2018-06-05] MEDS ORDERED: PROM25 PR (17:32)
[2018-06-05] MEDS ORDERED: OLAN10 PO (18:14)
[2018-06-05 18:15] LABS: Source, Urine Clean Catch
[2018-06-05] MEDS ORDERED: Hydroxyzine HCl50 MG PO (18:15)
[2018-06-05 18:25] LABS: Bilirubin, Urine Neg (Neg); Blood, Urine 3+ (Neg); Glucose Qualitative, Urine Neg (Neg); Ketones, Urine 1+ (Neg); Leukocyte Esterase, Urine Neg (Neg); Nitrite, Urine Neg (Neg); Protein, Urine 2+ (Neg); Specific Gravity, Urine 1.015 (1.003-1.022); Urobilinogen, Urine NORM (Normal); pH, Urine 6.5 (5.0-8.0)
[2018-06-05 18:34] LABS: Appearance, Urine Hazy (Clear); Color, Urine Amber (P-Yellow)
[2018-06-05 18:35] LABS: Amorphous Light (0-Heavy); Bacteria Few /hpf; Mucus Heavy (0-Heavy); Squamous Epithelial Cells Many /hpf (Few); White Blood Cells, Urine Rare /hpf (0-5)
[2018-06-05 18:41] LABS: Alanine Aminotransfer (ALT/SGP 13 U/L (12-78); Albumin, Blood 3.2 g/dL (3.4-5.0); Albumin/Globulin Ratio 0.9 (0.8-1.8); Alk Phos 58 U/L (50-136); Anion Gap 8 mmol/L (6-16); Aspartate Aminotrans (AST/SGOT 14 U/L (12-37); Bilirubin, Total 0.3 mg/dL (0.1-1.0); Blood Urea Nitrogen 5 mg/dL (8-24); Bun/Creatinine Ratio 7.6 (12.0-20.0); CO2, Blood 27 mmol/L (21-32); Calcium, Blood 8.7 mg/dL (8.5-10.1); Chloride, Blood 105 mmol/L (98-108); Creatinine, Blood 0.66 mg/dL (0.40-1.00); Globulin, Blood 3.6 g/dL (2.2-4.0); Glomerular Filtration Rate >60 (60-); Glucose, Blood 74 mg/dL (70-99); Potassium, Blood 3.1 mmol/L (3.5-5.5); Sodium, Blood 140 mmol/L (136-145); Total Protein, Blood 6.8 g/dL (6.4-8.2)
[2018-06-05 19:07] LABS: BASOPHILS ABSOLUTE AUTO 0.03 K/mm3 (0.00-0.23); BASOPHILS PERCENT AUTO 0 % (0-2); EOSINOPHILS ABSOLUTE AUTO 0.21 K/mm3 (0.00-0.68); EOSINOPHILS PERCENT AUTO 2 % (0-6); Hematocrit 39.8 % (33.0-51.0); Hemoglobin 12.9 g/dL (11.5-16.0); IMMATURE GRAN ABSOLUTE AUTO 0.03 K/mm3 (0.00-0.10); IMMATURE GRAN PERCENT AUTO 0 % (0-1); LYMPHOCYTES ABSOLUTE AUTO 2.74 K/mm3 (0.84-5.20); LYMPHOCYTES PERCENT AUTO 26 % (21-46); MONOCYTES ABSOLUTE AUTO 0.75 K/mm3 (0.16-1.47); MONOCYTES PERCENT AUTO 7 % (4-13); Mean Corpuscular HGB 28.4 pg (26.0-34.0); Mean Corpuscular HGB Conc 32.4 g/dL (31.5-36.5); Mean Corpuscular Volume 88 fL (80-100); Mean Platelet Volume 9.1 fL (9.1-12.4); NEUTROPHILS ABSOLUTE AUTO 6.76 K/mm3 (1.96-9.15); NEUTROPHILS PERCENT AUTO 64 % (41-73); Platelet Count 531 K/mm3 (150-400); RDW Coefficient Variation 14.6 % (11.7-14.2); RDW Standard Deviation 46.8 fL (35.1-46.3); Red Blood Cell Count 4.55 M/mm3 (3.80-5.20); White Blood Cell Count 10.52 K/mm3 (4.00-11.30)
== END 2018-06-05 19:22 | disposition home or self-care (01) ==
LOC: ER 15:13
PROVIDERS: Emergency Medicine; Physician Assistant
DX: R11.10 Vomiting, unspecified (principal); F32.9 Major depressive disorder, single episode, unspecified; F41.9 Anxiety disorder, unspecified; M54.9 Dorsalgia, unspecified; G89.29 Other chronic pain; F17.210 Nicotine dependence, cigarettes, uncomplicated; Z88.5 Allergy status to narcotic agent; Z88.6 Allergy status to analgesic agent; Z88.8 Allergy status to other drugs, medicaments and biological substances; Z79.899 Other long term (current) drug therapy
CPT/HCPCS: 36415; 80053; 81001; 85025; 96361; 96374; 96375; 99284-25; J1200; J2765; J7030

== ENCOUNTER → 2018-07-31 | Outpatient (CLI) | payer OTHER ==
[~2018-07-31] MED LIST changes: +Ativan1 MG SL; +Hydroxyzine HCl50 MG PO; +OLAN10 PO; +PROM25 PR
== END ==
LOC: LAB 18:19 → LAB SHORT 18:19
DX: L08.9 Local infection of the skin and subcutaneous tissue, unspecified (principal)
CPT/HCPCS: 87070; 87205

== ENCOUNTER → 2018-11-02 | Outpatient (CLI) | payer OTHER | LOC: LAB SHORT 13:06 → LAB 13:06 | DX: L08.9 Local infection of the skin and subcutaneous tissue, unspecified (principal) | CPT/HCPCS: 87070; 87205 ==

== ENCOUNTER 2018-12-31 17:30 | Emergency (ER) | payer OTHER ==
[~2018-12-31] VITALS: Ht 167.6 cm; Wt 108.9 kg
[~2018-12-31 17:30] MED LIST changes: -METO50ER PO
[2018-12-31] MEDS ORDERED: Clonidine HCl0.3 MG PO (18:12)
== END 2018-12-31 18:25 | disposition home or self-care (01) ==
LOC: ER 17:30
DX: F41.9 Anxiety disorder, unspecified (principal); Z76.0 Encounter for issue of repeat prescription; F32.9 Major depressive disorder, single episode, unspecified; F17.210 Nicotine dependence, cigarettes, uncomplicated; Z91.048 Other nonmedicinal substance allergy status; Z88.5 Allergy status to narcotic agent; Z88.6 Allergy status to analgesic agent; Z79.899 Other long term (current) drug therapy
CPT/HCPCS: 99281

== ENCOUNTER 2019-01-18 15:26 | Emergency (ER) | payer OTHER ==
[~2019-01-18] VITALS: Ht 167.6 cm; Wt 104.3 kg
[~2019-01-18 15:26] MED LIST changes: +Clonidine HCl0.3 MG PO
[2019-01-18 16:18] LABS: BASOPHILS ABSOLUTE AUTO 0.07 K/mm3 (0.00-0.23); BASOPHILS PERCENT AUTO 0 % (0-2); EOSINOPHILS ABSOLUTE AUTO 0.29 K/mm3 (0.00-0.68); EOSINOPHILS PERCENT AUTO 2 % (0-6); Hematocrit 43.2 % (33.0-51.0); Hemoglobin 14.1 g/dL (11.5-16.0); IMMATURE GRAN ABSOLUTE AUTO 0.05 K/mm3 (0.00-0.10); IMMATURE GRAN PERCENT AUTO 0 % (0-1); LYMPHOCYTES ABSOLUTE AUTO 6.42 K/mm3 (0.84-5.20); LYMPHOCYTES PERCENT AUTO 40 % (21-46); MONOCYTES ABSOLUTE AUTO 0.91 K/mm3 (0.16-1.47); MONOCYTES PERCENT AUTO 6 % (4-13); Mean Corpuscular HGB 29.7 pg (26.0-34.0); Mean Corpuscular HGB Conc 32.6 g/dL (31.5-36.5); Mean Corpuscular Volume 91 fL (80-100); Mean Platelet Volume 9.1 fL (9.1-12.4); NEUTROPHILS ABSOLUTE AUTO 8.19 K/mm3 (1.96-9.15); NEUTROPHILS PERCENT AUTO 52 % (41-73); Platelet Count 362 K/mm3 (150-400); RDW Coefficient Variation 14.2 % (11.7-14.2); RDW Standard Deviation 47.6 fL (35.1-46.3); Red Blood Cell Count 4.75 M/mm3 (3.80-5.20); White Blood Cell Count 15.93 K/mm3 (4.00-11.30)
[2019-01-18 16:47] LABS: Alanine Aminotransfer (ALT/SGP 22 U/L (12-78); Albumin, Blood 3.6 g/dL (3.4-5.0); Albumin/Globulin Ratio 0.9 (0.8-1.8); Alk Phos 64 U/L (50-136); Anion Gap 9 mmol/L (6-16); Aspartate Aminotrans (AST/SGOT 27 U/L (12-37); Bilirubin, Total 0.2 mg/dL (0.1-1.0); Blood Urea Nitrogen 18 mg/dL (8-24); Bun/Creatinine Ratio 16.1 (12.0-20.0); CO2, Blood 24 mmol/L (21-32); Calcium, Blood 8.8 mg/dL (8.5-10.1); Chloride, Blood 100 mmol/L (98-108); Creatinine, Blood 1.12 mg/dL (0.40-1.00); Globulin, Blood 4.1 g/dL (2.2-4.0); Glomerular Filtration Rate 59 (60-); Glucose, Blood 103 mg/dL (70-99); Potassium, Blood 3.6 mmol/L (3.5-5.5); Sodium, Blood 133 mmol/L (136-145); Total Protein, Blood 7.7 g/dL (6.4-8.2); Troponin I <0.015 ng/mL (0.000-0.040)
[2019-01-18 16:54] LABS: Source, Urine Clean Catch
[2019-01-18 16:58] LABS: Bilirubin, Urine Neg (Neg); Blood, Urine 2+ (Neg); Glucose Qualitative, Urine Neg (Neg); Ketones, Urine Neg (Neg); Leukocyte Esterase, Urine Neg (Neg); Nitrite, Urine Neg (Neg); Protein, Urine Neg (Neg); Urobilinogen, Urine NORM (Normal)
[2019-01-18 17:05] LABS: Appearance, Urine Clear (Clear); Color, Urine Yellow (P-Yellow)
[2019-01-18 17:06] LABS: Bacteria Many /hpf; Red Blood Cells, Urine 0-2 /hpf (0-2); Squamous Epithelial Cells Many /hpf (Few); White Blood Cells, Urine 0-2 /hpf (0-5)
[2019-01-18] MEDS ORDERED: Catapres0.1 MG PO (17:30)
[2019-01-18] MEDS ORDERED: Catapres0.3 MG PO (17:33)
== END 2019-01-18 17:50 | disposition home or self-care (01) ==
LOC: ER 15:26
PROVIDERS: Physician Assistant
DX: R00.0 Tachycardia, unspecified (principal); F11.23 Opioid dependence with withdrawal; D72.829 Elevated white blood cell count, unspecified; Z91.14 Patient's other noncompliance with medication regimen
CPT/HCPCS: 36415; 71046; 80053; 81001; 81025; 83605; 84443; 84484; 85025; 87086; 93005; 93010; 96374; 99284-25; J2060

== ENCOUNTER 2019-02-02 11:22 | Emergency (ER) | payer OTHER ==
[~2019-02-02] VITALS: Ht 167.6 cm; Wt 108.9 kg
[~2019-02-02 11:22] MED LIST changes: +Catapres0.3 MG PO
[2019-02-02 12:15] LABS: BASOPHILS ABSOLUTE AUTO 0.04 K/mm3 (0.00-0.23); BASOPHILS PERCENT AUTO 0 % (0-2); EOSINOPHILS ABSOLUTE AUTO 0.02 K/mm3 (0.00-0.68); EOSINOPHILS PERCENT AUTO 0 % (0-6); Hematocrit 47.6 % (33.0-51.0); Hemoglobin 15.3 g/dL (11.5-16.0); IMMATURE GRAN ABSOLUTE AUTO 0.03 K/mm3 (0.00-0.10); IMMATURE GRAN PERCENT AUTO 0 % (0-1); LYMPHOCYTES ABSOLUTE AUTO 1.76 K/mm3 (0.84-5.20); LYMPHOCYTES PERCENT AUTO 13 % (21-46); MONOCYTES ABSOLUTE AUTO 0.46 K/mm3 (0.16-1.47); MONOCYTES PERCENT AUTO 3 % (4-13); Mean Corpuscular HGB 29.7 pg (26.0-34.0); Mean Corpuscular HGB Conc 32.1 g/dL (31.5-36.5); Mean Corpuscular Volume 92 fL (80-100); Mean Platelet Volume 8.4 fL (9.1-12.4); NEUTROPHILS ABSOLUTE AUTO 11.27 K/mm3 (1.96-9.15); NEUTROPHILS PERCENT AUTO 83 % (41-73); Platelet Count 615 K/mm3 (150-400); RDW Coefficient Variation 14.1 % (11.7-14.2); RDW Standard Deviation 48.8 fL (35.1-46.3); Red Blood Cell Count 5.16 M/mm3 (3.80-5.20); White Blood Cell Count 13.58 K/mm3 (4.00-11.30)
[2019-02-02 12:38] LABS: Alanine Aminotransfer (ALT/SGP 23 U/L (12-78); Albumin, Blood 3.7 g/dL (3.4-5.0); Albumin/Globulin Ratio 0.7 (0.8-1.8); Alk Phos 68 U/L (50-136); Anion Gap 8 mmol/L (6-16); Aspartate Aminotrans (AST/SGOT 17 U/L (12-37); Bilirubin, Total 0.3 mg/dL (0.1-1.0); Blood Urea Nitrogen 11 mg/dL (8-24); Bun/Creatinine Ratio 14.7 (12.0-20.0); CO2, Blood 21 mmol/L (21-32); Calcium, Blood 9.4 mg/dL (8.5-10.1); Chloride, Blood 104 mmol/L (98-108); Creatinine, Blood 0.75 mg/dL (0.40-1.00); Globulin, Blood 5.3 g/dL (2.2-4.0); Glomerular Filtration Rate >60 (60-); Glucose, Blood 129 mg/dL (70-99); Potassium, Blood 4.4 mmol/L (3.5-5.5); Sodium, Blood 133 mmol/L (136-145)
[2019-02-02] MEDS ORDERED: Ativan1 MG PO (13:34)
[2019-02-02] MEDS ORDERED: Catapres0.3 MG PO (13:34)
== END 2019-02-02 12:00 | disposition home or self-care (01) ==
LOC: ER 11:22
PROVIDERS: Emergency Medicine
DX: F41.9 Anxiety disorder, unspecified (principal); I10 Essential (primary) hypertension; R11.2 Nausea with vomiting, unspecified; Z88.0 Allergy status to penicillin; Z88.5 Allergy status to narcotic agent; Z88.6 Allergy status to analgesic agent; Z88.8 Allergy status to other drugs, medicaments and biological substances; Z79.899 Other long term (current) drug therapy; F32.9 Major depressive disorder, single episode, unspecified; F17.210 Nicotine dependence, cigarettes, uncomplicated
CPT/HCPCS: 36415; 80053; 85025; 96374; 99283-25; J2060; J7030

== ENCOUNTER 2019-02-13 09:11 | Emergency (ER) | payer OTHER ==
[~2019-02-13] VITALS: Ht 167.6 cm; Wt 108.9 kg
[~2019-02-13 09:11] MED LIST changes: +Ativan1 MG PO
[2019-02-13] MEDS ORDERED: Catapres0.1 MG PO (13:55)
== END 2019-02-13 14:09 | disposition home or self-care (01) ==
LOC: ER 09:11
DX: I10 Essential (primary) hypertension (principal); Z76.0 Encounter for issue of repeat prescription; R11.10 Vomiting, unspecified; F32.9 Major depressive disorder, single episode, unspecified; F41.9 Anxiety disorder, unspecified; R56.9 Unspecified convulsions; F17.210 Nicotine dependence, cigarettes, uncomplicated; Z91.048 Other nonmedicinal substance allergy status; Z88.5 Allergy status to narcotic agent; Z88.6 Allergy status to analgesic agent; Z79.899 Other long term (current) drug therapy; Z79.51 Long term (current) use of inhaled steroids
CPT/HCPCS: 99281

== ENCOUNTER 2019-02-22 15:08 | Inpatient (IN) | payer OTHER ==
[~2019-02-22] VITALS: Ht 167.6 cm; Wt 114.7 kg
[2019-02-22 15:54] LABS: BASOPHILS ABSOLUTE AUTO 0.04 K/mm3 (0.00-0.23); BASOPHILS PERCENT AUTO 0 % (0-2); EOSINOPHILS ABSOLUTE AUTO 0.42 K/mm3 (0.00-0.68); EOSINOPHILS PERCENT AUTO 2 % (0-6); Hematocrit 39.3 % (33.0-51.0); Hemoglobin 12.6 g/dL (11.5-16.0); IMMATURE GRAN PERCENT AUTO 1 % (0-1); LYMPHOCYTES ABSOLUTE AUTO 2.39 K/mm3 (0.84-5.20); LYMPHOCYTES PERCENT AUTO 14 % (21-46); MONOCYTES ABSOLUTE AUTO 0.94 K/mm3 (0.16-1.47); MONOCYTES PERCENT AUTO 5 % (4-13); Mean Corpuscular HGB 29.2 pg (26.0-34.0); Mean Corpuscular HGB Conc 32.1 g/dL (31.5-36.5); Mean Corpuscular Volume 91 fL (80-100); Mean Platelet Volume 9.1 fL (9.1-12.4); NEUTROPHILS ABSOLUTE AUTO 13.71 K/mm3 (1.96-9.15); NEUTROPHILS PERCENT AUTO 78 % (41-73); Platelet Count 422 K/mm3 (150-400); RDW Coefficient Variation 14.7 % (11.7-14.2); RDW Standard Deviation 49.6 fL (35.1-46.3); Red Blood Cell Count 4.31 M/mm3 (3.80-5.20)
[2019-02-22 16:12] LABS: Influenza A Negative (NEGATIVE); Influenza B Negative (NEGATIVE)
[2019-02-22 16:16] LABS: Alanine Aminotransfer (ALT/SGP 18 U/L (12-78); Albumin, Blood 3.2 g/dL (3.4-5.0); Albumin/Globulin Ratio 0.6 (0.8-1.8); Alk Phos 68 U/L (50-136); Anion Gap 8 mmol/L (6-16); Aspartate Aminotrans (AST/SGOT 25 U/L (12-37); Bilirubin, Total 0.7 mg/dL (0.1-1.0); Blood Urea Nitrogen 12 mg/dL (8-24); Bun/Creatinine Ratio 13.8 (12.0-20.0); CO2, Blood 24 mmol/L (21-32); Calcium, Blood 8.9 mg/dL (8.5-10.1); Chloride, Blood 104 mmol/L (98-108); Creatinine, Blood 0.87 mg/dL (0.40-1.00); Globulin, Blood 5.4 g/dL (2.2-4.0); Glomerular Filtration Rate >60 (60-); Glucose, Blood 98 mg/dL (70-99); Potassium, Blood 3.6 mmol/L (3.5-5.5); Sodium, Blood 136 mmol/L (136-145); Total Protein, Blood 8.6 g/dL (6.4-8.2); Troponin I <0.015 ng/mL (0.000-0.040)
[2019-02-22] MEDS ORDERED: Hydroxyzine HCl50 MG PO (17:52)
[2019-02-22] MEDS ORDERED: OLANZAPINE5 M1 PO (17:53)
[2019-02-22] MEDS ORDERED: GABA600 PO (17:53)
[2019-02-22] MEDS ORDERED: CLON.3 PO (17:54)
[2019-02-22] MEDS ORDERED: BUPRENORPHINE HC8 MG SL (18:00)
[2019-02-22] MEDS ORDERED: Ativan1 MG PO (18:01)
[2019-02-22] MEDS ORDERED: ALBU90OI INH (18:02)
[2019-02-22] MEDS ORDERED: BUPRENORPHINE HC2 MG SL (18:25)
[2019-02-22] MEDS ORDERED: Lisinopril2.5 MG PO (18:26)
[2019-02-22] MEDS ORDERED: DULO60 PO (18:28)
[2019-02-22] MEDS ORDERED: METO100 PO (18:28)
[2019-02-22 19:44] LABS: Adenovirus Not Detected (NOT DETECT); Bordetella pertussis Not Detected (NOT DETECT); Chlamydophila pneumoniae Not Detected (NOT DETECT); Coronavirus 229E Not Detected (NOT DETECT); Coronavirus HKU1 Not Detected (NOT DETECT); Coronavirus NL63 Not Detected (NOT DETECT); Coronavirus OC43 Not Detected (NOT DETECT); Human Metapneumovirus Not Detected (NOT DETECT); Human Rhinovirus/Enterovirus Not Detected (NOT DETECT); Influenza A Not Detected (NOT DETECT); Influenza A/2009-H1 Not Detected (NOT DETECT); Influenza A/H1 Not Detected (NOT DETECT); Influenza A/H3 Not Detected (NOT DETECT); Influenza B Not Detected (NOT DETECT); Mycoplasma pneumoniae Not Detected (NOT DETECT); Parainfluenza Virus 1 Not Detected (NOT DETECT); Parainfluenza Virus 2 Not Detected (NOT DETECT); Parainfluenza Virus 3 Not Detected (NOT DETECT); Parainfluenza Virus 4 Not Detected (NOT DETECT); Respiratory Syncytial Virus Not Detected (NOT DETECT)
--- NOTE | 2019-02-22 22:31 | NUR ---
2002 REPORT RECEIVED FROM RACHEAL TREVINO IN ER; PT RECEIVED VIA CART FROM ER; DENIES NEED TO HAVE ANY PERSONAL BELONGINGS LOCKED UP; FATHER AT SIDE; WEARING O2 AT 2L/M PER NASAL CANNULA. 2229 PT INQUIRING ABOUT ZYPREXA 5MG PO TAKEN AT BEDTIME; Dayami WEBBER NP CALLED WITH ORDERS.
[2019-02-22 22:42] LABS: Source, Urine Clean Catch
[2019-02-22 22:51] LABS: Bilirubin, Urine Neg (Neg); Blood, Urine 3+ (Neg); Glucose Qualitative, Urine Neg (Neg); Ketones, Urine Neg (Neg); Leukocyte Esterase, Urine Neg (Neg); Nitrite, Urine Neg (Neg); Protein, Urine 2+ (Neg); Urobilinogen, Urine NORM (Normal)
[2019-02-22 23:05] LABS: U Amphetamine Screen Not Detected; U Barbituate Screen Not Detected; U Benzodiazapine Screen Not Detected; U Buprenorphine Screen DETECTED; U Cannabinoids Screen Not Detected; U Cocaine Screen Not Detected; U Methadone Screen Not Detected; U Methamphetamine Screen Not Detected; U Opiates Screen DETECTED; U Oxycodone Screen Not Detected; U Phencyclidine Screen Not Detected; U Propoxyphene Screen Not Detected
[2019-02-22 23:07] LABS: Amorphous Light (0-Heavy); Appearance, Urine Clear (Clear); Bacteria Rare /hpf; Color, Urine Yellow (P-Yellow); Granular Casts 0-2 /lpf (0); Red Blood Cells, Urine 0-2 /hpf (0-2); Squamous Epithelial Cells Few /hpf (Few); White Blood Cells, Urine Not Seen /hpf (0-5)
--- NOTE | 2019-02-23 04:14 | NUR ---
SHIFT SUMMARY: 33 Y/O OBESE FEMALE RESTED COMFORTABLY ALL SHIFT; DENIES PAIN OR NAUSEA; ANXIETY RESOLVED AFTER ZYPREXA 5MG PO GIVEN; UA SENT THIS SHIFT; LUNG SOUNDS HAVE SCATTERED CRACKLES THROUGHOUT WITH NO COUGH NOTED; WEARING O2 AT 2L/M PER NASAL CANNULA; BED LOW POSITION WITH CALL LIGHT AT SIDE.
[2019-02-23 05:41] LABS: BASOPHILS ABSOLUTE AUTO 0.02 K/mm3 (0.00-0.23); BASOPHILS PERCENT AUTO 0 % (0-2); EOSINOPHILS PERCENT AUTO 4 % (0-6); Hematocrit 33.6 % (33.0-51.0); Hemoglobin 10.4 g/dL (11.5-16.0); IMMATURE GRAN ABSOLUTE AUTO 0.04 K/mm3 (0.00-0.10); IMMATURE GRAN PERCENT AUTO 0 % (0-1); LYMPHOCYTES ABSOLUTE AUTO 3.34 K/mm3 (0.84-5.20); LYMPHOCYTES PERCENT AUTO 25 % (21-46); MONOCYTES ABSOLUTE AUTO 0.76 K/mm3 (0.16-1.47); MONOCYTES PERCENT AUTO 6 % (4-13); Mean Corpuscular HGB 28.8 pg (26.0-34.0); Mean Corpuscular Volume 93 fL (80-100); Mean Platelet Volume 9.5 fL (9.1-12.4); NEUTROPHILS ABSOLUTE AUTO 8.55 K/mm3 (1.96-9.15); NEUTROPHILS PERCENT AUTO 65 % (41-73); Platelet Count 396 K/mm3 (150-400); RDW Standard Deviation 51.7 fL (35.1-46.3); Red Blood Cell Count 3.61 M/mm3 (3.80-5.20); White Blood Cell Count 13.21 K/mm3 (4.00-11.30)
[2019-02-23 06:03] LABS: Alanine Aminotransfer (ALT/SGP 14 U/L (12-78); Albumin, Blood 2.6 g/dL (3.4-5.0); Albumin/Globulin Ratio 0.6 (0.8-1.8); Alk Phos 54 U/L (50-136); Anion Gap 6 mmol/L (6-16); Aspartate Aminotrans (AST/SGOT 21 U/L (12-37); Bilirubin, Total 0.4 mg/dL (0.1-1.0); Blood Urea Nitrogen 9 mg/dL (8-24); Bun/Creatinine Ratio 10.4 (12.0-20.0); CO2, Blood 25 mmol/L (21-32); Calcium, Blood 8.5 mg/dL (8.5-10.1); Chloride, Blood 108 mmol/L (98-108); Creatinine, Blood 0.87 mg/dL (0.40-1.00); Globulin, Blood 4.5 g/dL (2.2-4.0); Glomerular Filtration Rate >60 (60-); Glucose, Blood 98 mg/dL (70-99); Potassium, Blood 3.9 mmol/L (3.5-5.5); Sodium, Blood 139 mmol/L (136-145); Total Protein, Blood 7.1 g/dL (6.4-8.2)
--- NOTE | 2019-02-23 18:09 | NUR ---
PT AOX4 AND COOPERATIVE OF CARE HOWEVER SHE WILL COME UP WITH VERY ODD STATEMENTS WHICH MAKE NO SENSE RANDOMLY AND THEN WILL ACT LIKE SHE DID NOT SAY ANYTHING ODD. PT HAS BEEN COOPERATIVE, BUT HAS CONSISTANTLY BEEN SOB RUNNING LOW 90s ON 2L AND WILL TAKE O2 OF DROPPING TO 85-86 RA. PT HAS BEEN INSTRUCTED ABOUT KEEPING HER O2 ON MULTIPLE TIMES TO DAY BY THIS BELT PICKER AND RT.PT HAS INCREASED RESPIRATIONS OF 20-24 SHE GETS HYPOXIC, BUT EVEN AFTER O2 GETS UP TO 92-94 SHE CONTINUE TO HAVE INCREASED RESPIRATIONS. CURRENT ANXIETY MEDICATION DID NOT HELP. CONTACTED DR ROA AND WILL TRY TO GIVE A DOSE OF ATIVAN AND SEE IF THIS IS EFFECTIVE WILL CONTINUE TO MONITOR. PT IS INDEPENDENT IN ROOM AND CALLS APPROPRIATELY AT THIS TIME.
--- NOTE | 2019-02-24 00:02 | NUR ---
02/23/19 2355 PT HAS INCREASED CONFUSION AND HYPOXIA; PT EARLIER HAD WANDERED UP TO DESK AFTER PULLING OUT IV FROM RFA AND APPEARED UNABLE TO FOLLOW SIMPLE VERBAL COMMANDS; PT WAS ABLE TO REORIENT AFTER BEING ESCORTED BACK TO ROOM; SPENCER HEALY RN, CHARGE NURSE AT BEDSIDE AND CONCURRED WITH ABOVE MENTAL HEALTH ASSESSMENT; TEMPERATURE 101.1 (ORAL); DR LOCKWOOD NOTIFIED WITH ORDERS FOR STAT EKG.
--- NOTE | 2019-02-24 06:08 | NUR ---
SHIFT SUMMARY: 36 Y/O OBESE FEMALE HAD RESTLESS NIGHT AT TIMES WITH PATIENT APPEARING TO BE CONFUSED WHEN THIS NURSE WAS PERFORMING ASSESSMENT; THOUGHT PROCESS WAS DISORGANIZED WITH INABILITY TO FOCUS ON TOPIC AT HAND; PT CLIMBED OOB BED TWICE, PULLED OUT IV X 1 AND REQUIRED REASSURANCE AND COMFORT FROM NURSING STAFF; THIS NURSE ADVISED SPENCER HEALY RN, CHARGE NURSE OF ABOVE WITH BEDSIDE ASSISTANCE AND ASSESSMENT PERFORMED; PT HAD EKG PERFORMED WHICH REFLECTED NSR; PT WAS NOTED AT BEGINNING OF SHIFT TO BE REQUESTING FROM [employer] SERVICE SUPERVISOR AND THIS NURSE NUMEROUS [place] DRINKS WITH PATIENT ENCOURAGED TO DRINK LIVIA MIST SODA WITH PATIENT OK WITH THIS IDEA; DENIES NAUSEA; PT DOES DESAT WHEN O2 IS NOT WORN BELOW 90% WITH PATIENT REQUIRING REMINDERS TO WEAR; BED ALARM APPLIED, BED LOW POSITION WITH CALL LIGHT AT SIDE. PT HAD NO CHANGES IN ANY MEDS.
--- NOTE | 2019-02-24 12:15 | NUR ---
PT AOX4 THIS AM. PT HAD A LOT OF CONFUSION REPORTED LAST NIGHT. GABAPENTIN HELD PER DR ROA TODAY. PT WAS ABLE TO GO OUT FOR A RIDE IN WHEEL CHAIR AND AT RA WAS AT 94%. WILL CONTINUE TO MONITOR. TRANSFERING CARE TO RACHEAL LEBLANC.
--- NOTE | 2019-02-24 14:56 | NUR ---
PATIENT PULLED IV THIS AM. DR. ROA CHANGED ANTIBIOTICS TO PO. PATIENT MOVED FROM 311 TO 312, DUE TO NEEDING THE LIFT ROOM FOR ANOTHER PATIENT. PATIENT VERBALIZED AGREEMENT TO THIS. SHE IS IN BED. ORIENTED TO ROOM AND SURROUNDINGS, HANDED TV REMOTE. SITTING IN BED ON RA WATCHING TV AT THIS TIME.
--- NOTE | 2019-02-24 17:39 | NUR ---
PT AOX4 AND COOPERATIVE OF CARE. PT HAS NOT HAD ANY CONFUSED EPISODES SHE HAS EXPERIENCE LAST NIGHT. PT MUCH MORE CLEAR WITH IN INTERACTION AND LOOKS BRIGHTER IN APPEARANCE. PT SITTING UP BREATHING COMFORTABLY AT THIS TIME ON 1L OF O2. WILL CONTINUE TO MONITOR.
--- NOTE | 2019-02-24 22:44 | NUR ---
2000 PTS FATHER AT SIDE AND SUPPORTIVE; PT ALERT AND ORIENTED X 4, THOUGHT PROCESS ORGANIZED; ABLE TO LOOK NURSE IN EYE AND CARRY ON CONVERSATION IN CALM VOICE; DENIES DYSPNEA OR PAIN.
--- NOTE | 2019-02-25 04:41 | NUR ---
SHIFT SUMMARY: 33 Y/O OBESE FEMALE RESTED COMFORTABLY ALL SHIFT WITH NO CONFUSION NOTED; THOUGHT PROCESS ORGANIZED; WEARING O2 AT 2L/M PER NASAL CANNULA (PT DESATS BELOW 88% WHEN NOT WORN); LUNG SOUNDS DIMINISHED THROUGHOUT; DENIES PAIN OR NAUSEA; BED LOW POSITION WITH CALL LIGHT AT SIDE.
[2019-02-25] MEDS ORDERED: LEVO750 PO (09:54)
--- NOTE | 2019-02-25 16:02 | NUR ---
DISCHARGE SUMMARY PT STABLE, PT DISCHARGED BY PRIVATE CARE AND ESCORTED BY VOLUNTEERS. PERSCRIPTIONS SENT TO [employer] BELONGINGS SENT WITH PT. DISCHARGE INSTRUCTIONS GONE OVER, PT HAD NO FURTHUR QUESTIONS.
== END 2019-02-25 10:22 | disposition home or self-care (01) | DRG 871 ==
LOC: ER 15:08 → MEDS 18:25
PROVIDERS: Emergency Medicine; Nurse Practitioner Acute Care; Physician Assistant; ADMIT Family Medicine
DX: A41.9 Sepsis, unspecified organism (principal); J96.01 Acute respiratory failure with hypoxia; G93.41 Metabolic encephalopathy; J18.9 Pneumonia, unspecified organism; F11.20 Opioid dependence, uncomplicated; G89.4 Chronic pain syndrome; F32.9 Major depressive disorder, single episode, unspecified; F41.1 Generalized anxiety disorder; I10 Essential (primary) hypertension; F17.210 Nicotine dependence, cigarettes, uncomplicated
CPT/HCPCS: 0099U; 36415; 71046; 80053; 81001; 83605; 84484; 85025; 87040; 87804; 93005; 93010; 94640; 94760; 96365; 96375; 99285-25; A9270; J0456; J0696; J1650; J2060; J7030; J7050; J7120

== ENCOUNTER 2019-03-21 10:34 | Emergency (ER) | payer OTHER ==
[~2019-03-21] VITALS: Ht 167.6 cm; Wt 113.4 kg
[~2019-03-21 10:34] MED LIST changes: +BUPRENORPHINE HC2 MG SL; +BUPRENORPHINE HC8 MG SL; +CLON.3 PO; +METO100 PO; +OLANZAPINE5 M1 PO
[2019-03-21 11:33] LABS: BASOPHILS ABSOLUTE AUTO 0.06 K/mm3 (0.00-0.23); BASOPHILS PERCENT AUTO 0 % (0-2); EOSINOPHILS PERCENT AUTO 1 % (0-6); Hematocrit 44.2 % (33.0-51.0); Hemoglobin 14.1 g/dL (11.5-16.0); IMMATURE GRAN ABSOLUTE AUTO 0.09 K/mm3 (0.00-0.10); IMMATURE GRAN PERCENT AUTO 1 % (0-1); LYMPHOCYTES PERCENT AUTO 14 % (21-46); MONOCYTES ABSOLUTE AUTO 1.28 K/mm3 (0.16-1.47); MONOCYTES PERCENT AUTO 6 % (4-13); Mean Corpuscular HGB 27.7 pg (26.0-34.0); Mean Corpuscular HGB Conc 31.9 g/dL (31.5-36.5); Mean Corpuscular Volume 87 fL (80-100); Mean Platelet Volume 8.8 fL (9.1-12.4); NEUTROPHILS ABSOLUTE AUTO 15.72 K/mm3 (1.96-9.15); NEUTROPHILS PERCENT AUTO 79 % (41-73); Platelet Count 413 K/mm3 (150-400); RDW Coefficient Variation 15.2 % (11.7-14.2); RDW Standard Deviation 48.4 fL (35.1-46.3); Red Blood Cell Count 5.09 M/mm3 (3.80-5.20); White Blood Cell Count 19.95 K/mm3 (4.00-11.30)
[2019-03-21 12:02] LABS: Alanine Aminotransfer (ALT/SGP 19 U/L (12-78); Albumin, Blood 3.6 g/dL (3.4-5.0); Albumin/Globulin Ratio 0.7 (0.8-1.8); Anion Gap 6 mmol/L (6-16); Aspartate Aminotrans (AST/SGOT 12 U/L (12-37); Bilirubin, Total 0.3 mg/dL (0.1-1.0); Blood Urea Nitrogen 9 mg/dL (8-24); Bun/Creatinine Ratio 10.4 (12.0-20.0); CO2, Blood 25 mmol/L (21-32); Calcium, Blood 9.1 mg/dL (8.5-10.1); Chloride, Blood 105 mmol/L (98-108); Creatinine, Blood 0.86 mg/dL (0.40-1.00); Glomerular Filtration Rate >60 (60-); Glucose, Blood 108 mg/dL (70-99); Potassium, Blood 4.1 mmol/L (3.5-5.5); Sodium, Blood 136 mmol/L (136-145); Total Protein, Blood 8.6 g/dL (6.4-8.2)
[2019-03-21 12:05] LABS: Alk Phos 68 U/L (50-136); Troponin I <0.015 ng/mL (0.000-0.040)
[2019-03-21 12:27] LABS: Source, Urine Clean Catch
[2019-03-21 12:34] LABS: Appearance, Urine Clear (Clear); Bilirubin, Urine Neg (Neg); Blood, Urine 3+ (Neg); Color, Urine Yellow (P-Yellow); Glucose Qualitative, Urine Neg (Neg); Ketones, Urine Neg (Neg); Leukocyte Esterase, Urine 1+ (Neg); Nitrite, Urine Neg (Neg); Protein, Urine 1+ (Neg); Urobilinogen, Urine NORM (Normal)
[2019-03-21 12:50] LABS: Bacteria Mod /hpf; Squamous Epithelial Cells Few /hpf (Few)
[2019-03-21] MEDS ORDERED: Catapres0.3 MG PO (14:17)
== END 2019-03-21 14:42 | disposition home or self-care (01) ==
LOC: ER 10:34
PROVIDERS: Emergency Medicine
DX: R00.0 Tachycardia, unspecified (principal); F41.9 Anxiety disorder, unspecified; F17.210 Nicotine dependence, cigarettes, uncomplicated; F32.9 Major depressive disorder, single episode, unspecified; M54.9 Dorsalgia, unspecified; G89.29 Other chronic pain; Z88.5 Allergy status to narcotic agent; Z88.6 Allergy status to analgesic agent; Z88.8 Allergy status to other drugs, medicaments and biological substances; Z79.899 Other long term (current) drug therapy
CPT/HCPCS: 36415; 71046; 80053; 81001; 81025; 83605; 84443; 84484; 85025; 87086; 93005; 93010; 96361; 96374; 96375; 99284-25; J2060; J7120

== ENCOUNTER 2019-04-22 08:48 | Emergency (ER) | payer OTHER ==
[~2019-04-22] VITALS: Ht 167.6 cm; Wt 122.5 kg
[2019-04-22 10:04] LABS: BASOPHILS ABSOLUTE AUTO 0.05 K/mm3 (0.00-0.23); BASOPHILS PERCENT AUTO 0 % (0-2); EOSINOPHILS ABSOLUTE AUTO 0.53 K/mm3 (0.00-0.68); EOSINOPHILS PERCENT AUTO 4 % (0-6); Hematocrit 38.2 % (33.0-51.0); Hemoglobin 12.1 g/dL (11.5-16.0); IMMATURE GRAN ABSOLUTE AUTO 0.07 K/mm3 (0.00-0.10); IMMATURE GRAN PERCENT AUTO 1 % (0-1); LYMPHOCYTES ABSOLUTE AUTO 2.66 K/mm3 (0.84-5.20); LYMPHOCYTES PERCENT AUTO 18 % (21-46); MONOCYTES ABSOLUTE AUTO 0.65 K/mm3 (0.16-1.47); MONOCYTES PERCENT AUTO 4 % (4-13); Mean Corpuscular HGB Conc 31.7 g/dL (31.5-36.5); Mean Corpuscular Volume 82 fL (80-100); Mean Platelet Volume 8.5 fL (9.1-12.4); NEUTROPHILS ABSOLUTE AUTO 11.19 K/mm3 (1.96-9.15); NEUTROPHILS PERCENT AUTO 74 % (41-73); Platelet Count 593 K/mm3 (150-400); RDW Coefficient Variation 15.5 % (11.7-14.2); RDW Standard Deviation 46.5 fL (35.1-46.3); Red Blood Cell Count 4.65 M/mm3 (3.80-5.20); White Blood Cell Count 15.15 K/mm3 (4.00-11.30)
[2019-04-22 10:32] LABS: Alanine Aminotransfer (ALT/SGP 19 U/L (12-78); Albumin, Blood 3.3 g/dL (3.4-5.0); Albumin/Globulin Ratio 0.6 (0.8-1.8); Alk Phos 78 U/L (50-136); Anion Gap 8 mmol/L (6-16); Aspartate Aminotrans (AST/SGOT 16 U/L (12-37); Blood Urea Nitrogen 8 mg/dL (8-24); Bun/Creatinine Ratio 8.5 (12.0-20.0); CO2, Blood 27 mmol/L (21-32); Calcium, Blood 8.9 mg/dL (8.5-10.1); Chloride, Blood 101 mmol/L (98-108); Creatinine, Blood 0.94 mg/dL (0.40-1.00); Globulin, Blood 5.2 g/dL (2.2-4.0); Glomerular Filtration Rate >60 (60-); Glucose, Blood 100 mg/dL (70-99); Potassium, Blood 3.8 mmol/L (3.5-5.5); Sodium, Blood 136 mmol/L (136-145); Total Protein, Blood 8.5 g/dL (6.4-8.2)
[2019-04-22 10:37] LABS: Bilirubin, Total 0.2 mg/dL (0.1-1.0)
[2019-04-22] MEDS ORDERED: Lasix20 MG PO (12:47)
[2019-04-22] MEDS ORDERED: K-Dur20 MEQ PO (12:47)
[2019-04-22] MEDS ORDERED: Clonidine HCl0.3 MG PO (12:47)
== END 2019-04-22 13:46 | disposition home or self-care (01) ==
LOC: ER 08:48
PROVIDERS: Emergency Medicine
DX: I50.9 Heart failure, unspecified (principal); F32.9 Major depressive disorder, single episode, unspecified; F17.210 Nicotine dependence, cigarettes, uncomplicated
CPT/HCPCS: 36415; 71045; 80053; 83880; 84484; 85025; 93005; 93010; 94640; J1940

== ENCOUNTER 2019-05-25 11:52 | Inpatient (IN) | payer OTHER ==
[~2019-05-25] VITALS: Ht 167.6 cm; Wt 120.0 kg
[~2019-05-25 11:52] MED LIST changes: +K-Dur20 MEQ PO; +Lasix20 MG PO
[2019-05-25] MEDS ORDERED: Lisinopril2.5 MG PO (14:03)
[2019-05-25] MEDS ORDERED: OMEP20ER PO (14:03)
[2019-05-25 14:33] LABS: BASOPHILS ABSOLUTE AUTO 0.04 K/mm3 (0.00-0.23); BASOPHILS PERCENT AUTO 0 % (0-2); EOSINOPHILS ABSOLUTE AUTO 0.39 K/mm3 (0.00-0.68); EOSINOPHILS PERCENT AUTO 2 % (0-6); Hemoglobin 11.5 g/dL (11.5-16.0); IMMATURE GRAN ABSOLUTE AUTO 0.04 K/mm3 (0.00-0.10); IMMATURE GRAN PERCENT AUTO 0 % (0-1); LYMPHOCYTES ABSOLUTE AUTO 2.48 K/mm3 (0.84-5.20); LYMPHOCYTES PERCENT AUTO 15 % (21-46); MONOCYTES ABSOLUTE AUTO 0.75 K/mm3 (0.16-1.47); MONOCYTES PERCENT AUTO 5 % (4-13); Mean Corpuscular HGB 25.3 pg (26.0-34.0); Mean Corpuscular HGB Conc 31.9 g/dL (31.5-36.5); Mean Corpuscular Volume 79 fL (80-100); Mean Platelet Volume 9.1 fL (9.1-12.4); NEUTROPHILS ABSOLUTE AUTO 13.03 K/mm3 (1.96-9.15); NEUTROPHILS PERCENT AUTO 78 % (41-73); Platelet Count 408 K/mm3 (150-400); RDW Coefficient Variation 17.7 % (11.7-14.2); RDW Standard Deviation 51.4 fL (35.1-46.3); Red Blood Cell Count 4.55 M/mm3 (3.80-5.20); White Blood Cell Count 16.73 K/mm3 (4.00-11.30)
[2019-05-25 14:53] LABS: Alanine Aminotransfer (ALT/SGP 13 U/L (12-78); Albumin, Blood 3.2 g/dL (3.4-5.0); Albumin/Globulin Ratio 0.7 (0.8-1.8); Alk Phos 71 U/L (50-136); Anion Gap 6 mmol/L (6-16); Aspartate Aminotrans (AST/SGOT 29 U/L (12-37); Bilirubin, Total 0.3 mg/dL (0.1-1.0); Blood Urea Nitrogen 10 mg/dL (8-24); Bun/Creatinine Ratio 9.4 (12.0-20.0); CO2, Blood 28 mmol/L (21-32); Calcium, Blood 8.5 mg/dL (8.5-10.1); Chloride, Blood 100 mmol/L (98-108); Creatinine, Blood 1.06 mg/dL (0.40-1.00); Globulin, Blood 4.9 g/dL (2.2-4.0); Glomerular Filtration Rate >60 (60-); Glucose, Blood 88 mg/dL (70-99); Potassium, Blood 3.7 mmol/L (3.5-5.5); Sodium, Blood 134 mmol/L (136-145); Total Protein, Blood 8.1 g/dL (6.4-8.2)
[2019-05-25] MEDS ORDERED: FURO40 PO (14:59)
[2019-05-25] MEDS ORDERED: POTCHL20ER PO (15:00)
--- NOTE | 2019-05-25 16:03 | NUR ---
Telephone report received from ED RN at this time. Anticipate arrival of pt to PCU 16 SHORTLY.
[2019-05-25] MEDS ORDERED: PROM25 PO (17:21)
--- NOTE | 2019-05-25 17:35 | NUR ---
The pt arrived to PCU 16. She states that she is not having any difficulty breathing or shortness of breath at this time. Wearing oxygen at 3-4 l/min, nasal cannula delivery. Lung sounds noted crackles and wheezes auscultated anterior lobes, bilaterally. Crackles also noted posterior bases, diminished but audible posterior lower ribs area. Sinus rhythm at 87 bpm per personnel monitor tech Carol Grey. The pt is able to stand and transfer from the stretcher to the bed in the room, and is conversant, does not appear anxious, but states that she really hopes that it is not Covid. States that she has been having health issues over the past month, starting with what she was told might be heart failure, due to the swelling in her legs at the time. but that she then saw Dr. Delgadillo and had an echocardiogram, which was normal. She was referred to a heel sprayer first, but has not yet received a call to have her appointment with the lung doctor. She does not have any swelling in her legs or feet at this time, and states that her difficulties as of late have been fever, and difficulty breathing. MIdline IV is being placed at this time by RACHEAL Renner from ICU so that the pt can be taken for a CT scan.
--- NOTE | 2019-05-25 21:07 | NUR ---
CARE ASSUMED CARE AND REPORT ASSUMED FROM JAE SPRINGER. PT SITTING CROSS LEGGED IN BED, WATCHING TV. SHE IS A/O X 3, CALM AND COOPERATIVE. DENIES PAIN AT THIS TIME. CURRENTLY TOLERATING 4L NC, SPO2 93%. LUNG SOUNDS COARSE AND WHEEZY. AFEBRILE AT THIS TIME. VSS. ANTIBIOTICS INFUSING. PHENERGAN GIVEN FOR NAUSEA. SWALLOWS WITHOUT DIFFICULTY. WILL CONTINUE TO MONITOR.
[2019-05-25 21:42] LABS: Adenovirus Not Detected (NOT DETECT); Bordetella pertussis Not Detected (NOT DETECT); Chlamydophila pneumoniae Not Detected (NOT DETECT); Coronavirus 229E Not Detected (NOT DETECT); Coronavirus HKU1 Not Detected (NOT DETECT); Coronavirus NL63 Not Detected (NOT DETECT); Coronavirus OC43 Not Detected (NOT DETECT); Human Metapneumovirus Not Detected (NOT DETECT); Human Rhinovirus/Enterovirus Not Detected (NOT DETECT); Influenza A/2009-H1 Not Detected (NOT DETECT); Influenza A/H1 Not Detected (NOT DETECT); Influenza A/H3 Not Detected (NOT DETECT); Influenza B Not Detected (NOT DETECT); Mycoplasma pneumoniae Not Detected (NOT DETECT); Parainfluenza Virus 1 Not Detected (NOT DETECT); Parainfluenza Virus 2 Not Detected (NOT DETECT); Parainfluenza Virus 3 Not Detected (NOT DETECT); Parainfluenza Virus 4 Not Detected (NOT DETECT); Respiratory Syncytial Virus Not Detected (NOT DETECT)
--- NOTE | 2019-05-26 00:03 | NUR ---
REASSESSMENT PT WAS SLEEPING FOR PAST FEW HOURS BUT IS NOW SITTING UPRIGHT IN BED. TEMP IMPROVED AND PT NOT SWEATING ANYMORE AFTER RECEVING TYLENOL 650 MG. VSS. BP WNL. SPO2 94% ON 5L NC. WILL CONTINUE TO MONITOR.
[2019-05-26 00:21] LABS: Source, Urine Clean Catch
[2019-05-26 00:24] LABS: Bilirubin, Urine Neg (Neg); Blood, Urine 3+ (Neg); Glucose Qualitative, Urine Neg (Neg); Ketones, Urine Neg (Neg); Leukocyte Esterase, Urine 1+ (Neg); Nitrite, Urine Neg (Neg); Protein, Urine 1+ (Neg); Urobilinogen, Urine NORM (Normal); pH, Urine 6.5 (5.0-8.0)
[2019-05-26 00:29] LABS: Appearance, Urine Clear (Clear); Color, Urine Yellow (P-Yellow)
[2019-05-26 00:30] LABS: Squamous Epithelial Cells Few /hpf (Few); White Blood Cells, Urine 0-2 /hpf (0-5)
[2019-05-26 00:31] LABS: Bacteria Few /hpf
[2019-05-26 04:15] LABS: BASOPHILS ABSOLUTE AUTO 0.03 K/mm3 (0.00-0.23); BASOPHILS PERCENT AUTO 0 % (0-2); EOSINOPHILS ABSOLUTE AUTO 0.52 K/mm3 (0.00-0.68); EOSINOPHILS PERCENT AUTO 4 % (0-6); Hematocrit 35.1 % (33.0-51.0); Hemoglobin 11.1 g/dL (11.5-16.0); IMMATURE GRAN ABSOLUTE AUTO 0.03 K/mm3 (0.00-0.10); IMMATURE GRAN PERCENT AUTO 0 % (0-1); LYMPHOCYTES ABSOLUTE AUTO 3.19 K/mm3 (0.84-5.20); LYMPHOCYTES PERCENT AUTO 27 % (21-46); MONOCYTES ABSOLUTE AUTO 0.63 K/mm3 (0.16-1.47); MONOCYTES PERCENT AUTO 5 % (4-13); Mean Corpuscular HGB 24.9 pg (26.0-34.0); Mean Corpuscular HGB Conc 31.6 g/dL (31.5-36.5); Mean Corpuscular Volume 79 fL (80-100); Mean Platelet Volume 9.1 fL (9.1-12.4); NEUTROPHILS ABSOLUTE AUTO 7.54 K/mm3 (1.96-9.15); NEUTROPHILS PERCENT AUTO 63 % (41-73); Platelet Count 409 K/mm3 (150-400); RDW Coefficient Variation 17.9 % (11.7-14.2); RDW Standard Deviation 51.1 fL (35.1-46.3); Red Blood Cell Count 4.45 M/mm3 (3.80-5.20); White Blood Cell Count 11.94 K/mm3 (4.00-11.30)
--- NOTE | 2019-05-26 04:41 | NUR ---
REASSESSMENT VSS AT THIS TIME. SPO2 94% ON 4L NC. PT SITTING UPRIGHT IN BED WATCHING A MOVIE. TALKING IN FULL SENTENCES. WILL CONTINUE TO MONITOR.
[2019-05-26 04:44] LABS: Alanine Aminotransfer (ALT/SGP 10 U/L (12-78); Albumin/Globulin Ratio 0.6 (0.8-1.8); Alk Phos 71 U/L (50-136); Anion Gap 8 mmol/L (6-16); Aspartate Aminotrans (AST/SGOT 26 U/L (12-37); Bilirubin, Total 0.5 mg/dL (0.1-1.0); Blood Urea Nitrogen 9 mg/dL (8-24); Bun/Creatinine Ratio 9.2 (12.0-20.0); CO2, Blood 27 mmol/L (21-32); Calcium, Blood 8.7 mg/dL (8.5-10.1); Chloride, Blood 100 mmol/L (98-108); Creatinine, Blood 0.98 mg/dL (0.40-1.00); Globulin, Blood 5.1 g/dL (2.2-4.0); Glomerular Filtration Rate >60 (60-); Glucose, Blood 114 mg/dL (70-99); Potassium, Blood 3.4 mmol/L (3.5-5.5); Sodium, Blood 135 mmol/L (136-145); Total Protein, Blood 8.1 g/dL (6.4-8.2)
--- NOTE | 2019-05-26 06:02 | NUR ---
SHIFT SUMMARY PT SLEPT OFF/ON DURING NIGHT. SAT UP IN BED WHEN SLEEPING SHE STATES IT IS MORE COMFORTABLE. HAS WORN 4-5L NC ENTIRE SHIFT. BP WNL. PT DID HAVE FEVER AT ONE POINT DURING THE NIGHT AND WAS GIVEN TYLENOL. LUNG SOUNDS REMAIN COARSE AND WHEEZY. NAUSEA IMPROVED FOLLOWING PHENERGAN ADMIN. WILL GIVE BEDSIDE, HANDOFF REPORT TO DAY RN.
--- NOTE | 2019-05-26 18:00 | NUR ---
NOTE PT RESTING QUIETLY. SR. VSS. PT LUNGS CONTINUE TO HACE INS/EXP FINE CRACKLES T/O POSTERIOR LUNG FIELD. STABLE SPO2 ON 4L HIGH FLOW CANNULA. PT FEELING GOOD ENOUGH TO SLEEP. SHE IS A VERY HARD SLEEPER. ABLE TO DUE VS AND SHE SLEEPS THROUGH IT. DOES NOT AROUSE TO NAME BUT DOES TO TOUCH. SHE AWAKENS ABRUPTLY AND AGGRESSIVELY. H/L. PT UP TO BATHROOM AD BENI. REFUSED TO USE HAT IN TOILET FOR OUTPT. SHE STATED THAT SHE ISN'T SOB WITH WALKING YESTERDAY. CONTINUE POT.
[2019-05-27 03:34] LABS: BASOPHILS ABSOLUTE AUTO 0.03 K/mm3 (0.00-0.23); BASOPHILS PERCENT AUTO 0 % (0-2); EOSINOPHILS ABSOLUTE AUTO 0.51 K/mm3 (0.00-0.68); EOSINOPHILS PERCENT AUTO 6 % (0-6); Hematocrit 34.5 % (33.0-51.0); Hemoglobin 10.9 g/dL (11.5-16.0); IMMATURE GRAN ABSOLUTE AUTO 0.02 K/mm3 (0.00-0.10); IMMATURE GRAN PERCENT AUTO 0 % (0-1); LYMPHOCYTES ABSOLUTE AUTO 3.44 K/mm3 (0.84-5.20); LYMPHOCYTES PERCENT AUTO 39 % (21-46); MONOCYTES ABSOLUTE AUTO 0.57 K/mm3 (0.16-1.47); MONOCYTES PERCENT AUTO 7 % (4-13); Mean Corpuscular HGB 25.2 pg (26.0-34.0); Mean Corpuscular HGB Conc 31.6 g/dL (31.5-36.5); Mean Corpuscular Volume 80 fL (80-100); NEUTROPHILS PERCENT AUTO 48 % (41-73); Platelet Count 459 K/mm3 (150-400); RDW Coefficient Variation 17.6 % (11.7-14.2); RDW Standard Deviation 51.5 fL (35.1-46.3); Red Blood Cell Count 4.32 M/mm3 (3.80-5.20); White Blood Cell Count 8.77 K/mm3 (4.00-11.30)
[2019-05-27 03:55] LABS: Alanine Aminotransfer (ALT/SGP 10 U/L (12-78); Albumin, Blood 2.8 g/dL (3.4-5.0); Albumin/Globulin Ratio 0.5 (0.8-1.8); Alk Phos 66 U/L (50-136); Anion Gap 5 mmol/L (6-16); Aspartate Aminotrans (AST/SGOT 17 U/L (12-37); Bilirubin, Total 0.1 mg/dL (0.1-1.0); Blood Urea Nitrogen 6 mg/dL (8-24); Bun/Creatinine Ratio 6.7 (12.0-20.0); CO2, Blood 30 mmol/L (21-32); Calcium, Blood 8.6 mg/dL (8.5-10.1); Chloride, Blood 102 mmol/L (98-108); Creatinine, Blood 0.89 mg/dL (0.40-1.00); Globulin, Blood 5.1 g/dL (2.2-4.0); Glomerular Filtration Rate >60 (60-); Glucose, Blood 99 mg/dL (70-99); Potassium, Blood 3.5 mmol/L (3.5-5.5); Sodium, Blood 137 mmol/L (136-145); Total Protein, Blood 7.9 g/dL (6.4-8.2)
--- NOTE | 2019-05-27 04:29 | NUR ---
SHIFT SUMMARY: PATIENT CONTINUOUSLY PULLING OXYGEN SENSOR, TELEMETRY STICKERS AND NASAL CANNULA OFF. PATIENT STATES SHE DOES IT IN HER SLEEP. ALL REAPPLIED AND REINFORCED. PATIENT VSS, CALL LIGHT WITHIN REACH AND BED LOW AND LOCKED.
--- NOTE | 2019-05-27 10:45 | NUR ---
ROOM AIR TRIAL PT WEANED TO ROOM AIR. SAT 93% AT REST. AFTER PT SEES DR BERRY SHE WILL TAKE A SHOWER AND GO FOR A WALK TO SEE HOW HER OXYGEN TRENDS. CONTINUE POT.
--- NOTE | 2019-05-27 11:52 | NUR ---
TRANSFER TO 343 REPORT CALLED TO SANJUANITA SPRINGER. PT TO TRANSFER VIA W/C ACCOMPANIED BY BINDERY TECHNICIAN. PT AGREEABLE TO MOVE. CONTINUE POT.
--- NOTE | 2019-05-27 16:30 | NUR ---
SHIFT SUMMARY PT WAS A TRANSFER FROM PCU AFTER LUNCH. SHE IS A/O X 4 AND HAS NO C/O PAIN. SHE IS IND IN HER ROOM AND WAS SET UP FOR A SHOWER UPON HER ARRIVAL TO MEDICAL FLOOR. SHE IS ABLE TO MAKE HER NEEDS KNOWN AND CALLS FOR HELP WHEN NEEDED. SHE HAS HER CALL LIGHT IN REACH.
[2019-05-28 06:00] LABS: BASOPHILS ABSOLUTE AUTO 0.05 K/mm3 (0.00-0.23); BASOPHILS PERCENT AUTO 1 % (0-2); EOSINOPHILS ABSOLUTE AUTO 0.55 K/mm3 (0.00-0.68); EOSINOPHILS PERCENT AUTO 7 % (0-6); Hematocrit 38.5 % (33.0-51.0); Hemoglobin 11.8 g/dL (11.5-16.0); IMMATURE GRAN ABSOLUTE AUTO 0.02 K/mm3 (0.00-0.10); IMMATURE GRAN PERCENT AUTO 0 % (0-1); LYMPHOCYTES PERCENT AUTO 45 % (21-46); MONOCYTES ABSOLUTE AUTO 0.57 K/mm3 (0.16-1.47); MONOCYTES PERCENT AUTO 8 % (4-13); Mean Corpuscular HGB 24.8 pg (26.0-34.0); Mean Corpuscular HGB Conc 30.6 g/dL (31.5-36.5); Mean Corpuscular Volume 81 fL (80-100); NEUTROPHILS ABSOLUTE AUTO 2.93 K/mm3 (1.96-9.15); NEUTROPHILS PERCENT AUTO 39 % (41-73); Platelet Count 483 K/mm3 (150-400); RDW Coefficient Variation 17.7 % (11.7-14.2); RDW Standard Deviation 51.6 fL (35.1-46.3); Red Blood Cell Count 4.75 M/mm3 (3.80-5.20); White Blood Cell Count 7.42 K/mm3 (4.00-11.30)
--- NOTE | 2019-05-28 06:09 | NUR ---
33 year old Female transferred from PCU yesterday. PT has hx of substance abuse & recieves high dose suboxone 1 x day given around 1300. Intermittantly appears High and she holds airway at irregular angle while sleeping. Rearranged pillows and checked sats on room air several times. Sats drop while sleeping, up to 97% on room air. Lives with parents. Possible dc home today. Tx with rocephin & azithromycon IV for pneumonia. Central line ran IV infusions well and would flush with ease but unable to draw blood back for AM labs
[2019-05-28 06:14] LABS: Alanine Aminotransfer (ALT/SGP 16 U/L (12-78); Albumin/Globulin Ratio 0.6 (0.8-1.8); Alk Phos 70 U/L (50-136); Anion Gap 4 mmol/L (6-16); Aspartate Aminotrans (AST/SGOT 18 U/L (12-37); Bilirubin, Total 0.1 mg/dL (0.1-1.0); Blood Urea Nitrogen 7 mg/dL (8-24); Bun/Creatinine Ratio 7.3 (12.0-20.0); CO2, Blood 33 mmol/L (21-32); Chloride, Blood 102 mmol/L (98-108); Creatinine, Blood 0.96 mg/dL (0.40-1.00); Glomerular Filtration Rate >60 (60-); Glucose, Blood 96 mg/dL (70-99); Potassium, Blood 3.6 mmol/L (3.5-5.5); Sodium, Blood 139 mmol/L (136-145)
[2019-05-28] MEDS ORDERED: CEFD300 PO (14:23)
--- NOTE | 2019-05-28 14:47 | NUR ---
1447 PT DISCHARGED HOME VIA PERSONAL VEHICLE, PT ESCORTED TO FACILITY ENTRANCE VIA W/C BY PRECISION LATHE OPERATOR. IV REMOVED. D/C PAPERWORK REVIEWED WITH PT AND COPY PROVIDED. NEW RX FAXED TO [facility] PER PT REQUEST. NO NEW CHANGES OR CONCERNS.
[2019-06-24] MEDS ORDERED: Vibramycin100 MG PO (22:25)
[2019-06-24] MEDS ORDERED: Clonidine HCl0.3 MG PO (22:25)
[2019-06-24] MEDS ORDERED: Diflucan100 MG PO (22:25)
== END 2019-05-28 14:47 | disposition home or self-care (01) | DRG 193 ==
LOC: ER 11:52 → PCU 15:05 → MEDS 05-27 12:24 → ENPENDDIS 05-28 14:06 → MEDS 05-28 14:47
PROVIDERS: Emergency Medicine; ADMIT Family Medicine
DX: J18.9 Pneumonia, unspecified organism (principal); J96.01 Acute respiratory failure with hypoxia; Z68.41 Body mass index [BMI] 40.0-44.9, adult; J45.901 Unspecified asthma with (acute) exacerbation; E66.01 Morbid (severe) obesity due to excess calories; G89.4 Chronic pain syndrome; Z99.81 Dependence on supplemental oxygen; I11.0 Hypertensive heart disease with heart failure; I50.9 Heart failure, unspecified; F17.210 Nicotine dependence, cigarettes, uncomplicated; K21.9 Gastro-esophageal reflux disease without esophagitis; F11.21 Opioid dependence, in remission; F42.9 Obsessive-compulsive disorder, unspecified; Z20.828 Contact with and (suspected) exposure to other viral communicable diseases
CPT/HCPCS: 0099U; 36415; 71045; 71260; 80053; 81001; 83880; 84484; 85025; 85379; 86140; 87040; 87086; 93005; 93010; 94640; 94760; 94762; 96374; 99285-25; A9270; C1751; J0456; J0696; J1650; J2550; J7030; J7050; Q9967; U0002

== ENCOUNTER 2019-07-18 10:45 | Emergency (ER) | payer OTHER ==
[~2019-07-18] VITALS: Ht 167.6 cm; Wt 116.1 kg
[~2019-07-18 10:45] MED LIST changes: +CEFD300 PO; +FURO40 PO; +POTCHL20ER PO; +Vibramycin100 MG PO
[2019-07-18 12:57] LABS: BASOPHILS ABSOLUTE AUTO 0.07 K/mm3 (0.00-0.23); BASOPHILS PERCENT AUTO 0 % (0-2); EOSINOPHILS ABSOLUTE AUTO 0.02 K/mm3 (0.00-0.68); EOSINOPHILS PERCENT AUTO 0 % (0-6); Hematocrit 43.2 % (33.0-51.0); Hemoglobin 14.1 g/dL (11.5-16.0); IMMATURE GRAN ABSOLUTE AUTO 0.13 K/mm3 (0.00-0.10); IMMATURE GRAN PERCENT AUTO 1 % (0-1); LYMPHOCYTES ABSOLUTE AUTO 1.77 K/mm3 (0.84-5.20); LYMPHOCYTES PERCENT AUTO 7 % (21-46); MONOCYTES ABSOLUTE AUTO 1.21 K/mm3 (0.16-1.47); MONOCYTES PERCENT AUTO 5 % (4-13); Mean Corpuscular HGB Conc 32.6 g/dL (31.5-36.5); Mean Corpuscular Volume 77 fL (80-100); Mean Platelet Volume 8.6 fL (9.1-12.4); NEUTROPHILS ABSOLUTE AUTO 21.74 K/mm3 (1.96-9.15); NEUTROPHILS PERCENT AUTO 87 % (41-73); Platelet Count 552 K/mm3 (150-400); RDW Coefficient Variation 19.5 % (11.7-14.2); Red Blood Cell Count 5.65 M/mm3 (3.80-5.20); White Blood Cell Count 24.94 K/mm3 (4.00-11.30)
[2019-07-18 13:17] LABS: Alanine Aminotransfer (ALT/SGP 31 U/L (12-78); Albumin/Globulin Ratio 0.8 (0.8-1.8); Alk Phos 67 U/L (50-136); Anion Gap 9 mmol/L (6-16); Aspartate Aminotrans (AST/SGOT 26 U/L (12-37); Bilirubin, Total 0.4 mg/dL (0.1-1.0); Blood Urea Nitrogen 12 mg/dL (8-24); Bun/Creatinine Ratio 15.1 (12.0-20.0); CO2, Blood 24 mmol/L (21-32); Calcium, Blood 9.6 mg/dL (8.5-10.1); Chloride, Blood 102 mmol/L (98-108); Creatinine, Blood 0.79 mg/dL (0.40-1.00); Globulin, Blood 5.1 g/dL (2.2-4.0); Glomerular Filtration Rate >60 (60-); Glucose, Blood 113 mg/dL (70-99); Potassium, Blood 3.4 mmol/L (3.5-5.5); Sodium, Blood 135 mmol/L (136-145); Total Protein, Blood 9.1 g/dL (6.4-8.2)
== END 2019-07-18 14:13 | disposition home or self-care (01) ==
LOC: ER 10:45
PROVIDERS: Emergency Medicine
DX: E87.6 Hypokalemia (principal); R11.2 Nausea with vomiting, unspecified; F13.10 Sedative, hypnotic or anxiolytic abuse, uncomplicated; Z88.6 Allergy status to analgesic agent; Z88.5 Allergy status to narcotic agent; Z79.899 Other long term (current) drug therapy; F32.9 Major depressive disorder, single episode, unspecified; M54.9 Dorsalgia, unspecified; G89.29 Other chronic pain; F17.210 Nicotine dependence, cigarettes, uncomplicated
CPT/HCPCS: 36415; 80053; 85025; 96361; 96374; 96375; 99283-25; J1200; J1630; J7030

== ENCOUNTER 2019-07-20 20:28 | Inpatient (IN) | payer OTHER ==
[~2019-07-20] VITALS: Ht 167.6 cm; Wt 115.6 kg
[2019-07-20 21:28] LABS: Source, Urine Clean Catch
[2019-07-20 21:29] LABS: BASOPHILS ABSOLUTE AUTO 0.09 K/mm3 (0.00-0.23); BASOPHILS PERCENT AUTO 0 % (0-2); EOSINOPHILS ABSOLUTE AUTO 0.04 K/mm3 (0.00-0.68); EOSINOPHILS PERCENT AUTO 0 % (0-6); Hematocrit 46.1 % (33.0-51.0); Hemoglobin 15.1 g/dL (11.5-16.0); IMMATURE GRAN ABSOLUTE AUTO 0.15 K/mm3 (0.00-0.10); IMMATURE GRAN PERCENT AUTO 1 % (0-1); LYMPHOCYTES PERCENT AUTO 11 % (21-46); MONOCYTES PERCENT AUTO 8 % (4-13); Mean Corpuscular HGB 25.4 pg (26.0-34.0); Mean Corpuscular HGB Conc 32.8 g/dL (31.5-36.5); Mean Corpuscular Volume 78 fL (80-100); NEUTROPHILS ABSOLUTE AUTO 20.56 K/mm3 (1.96-9.15); NEUTROPHILS PERCENT AUTO 80 % (41-73); RDW Coefficient Variation 19.7 % (11.7-14.2); RDW Standard Deviation 52.5 fL (35.1-46.3); Red Blood Cell Count 5.94 M/mm3 (3.80-5.20); White Blood Cell Count 25.74 K/mm3 (4.00-11.30)
[2019-07-20 21:32] LABS: Mean Platelet Volume 9.4 fL (9.1-12.4); Platelet Count 581 K/mm3 (150-400)
[2019-07-20 21:34] LABS: Appearance, Urine Hazy (Clear); Blood, Urine 5+ (Neg); Color, Urine Amber (P-Yellow); Glucose Qualitative, Urine Neg (Neg); Ketones, Urine 1+ (Neg); Leukocyte Esterase, Urine 1+ (Neg); Nitrite, Urine Neg (Neg); Protein, Urine 3+ (Neg); Specific Gravity, Urine 1.015 (1.003-1.022); Urobilinogen, Urine 1+ (Normal)
[2019-07-20 21:37] LABS: Bilirubin, Urine 1+ (Neg)
[2019-07-20 21:40] LABS: Bacteria Many /hpf; Squamous Epithelial Cells Many /hpf (Few); White Blood Cells, Urine 0-2 /hpf (0-5)
[2019-07-20 21:45] LABS: Alanine Aminotransfer (ALT/SGP 26 U/L (12-78); Albumin, Blood 3.5 g/dL (3.4-5.0); Albumin/Globulin Ratio 0.7 (0.8-1.8); Alk Phos 80 U/L (50-136); Anion Gap 9 mmol/L (6-16); Aspartate Aminotrans (AST/SGOT 33 U/L (12-37); Bilirubin, Total 0.9 mg/dL (0.1-1.0); Blood Urea Nitrogen 13 mg/dL (8-24); Bun/Creatinine Ratio 14.6 (12.0-20.0); CO2, Blood 24 mmol/L (21-32); Calcium, Blood 8.7 mg/dL (8.5-10.1); Chloride, Blood 100 mmol/L (98-108); Creatinine, Blood 0.89 mg/dL (0.40-1.00); Globulin, Blood 5.2 g/dL (2.2-4.0); Glomerular Filtration Rate >60 (60-); Glucose, Blood 140 mg/dL (70-99); Potassium, Blood 3.5 mmol/L (3.5-5.5); Sodium, Blood 133 mmol/L (136-145); Total Protein, Blood 8.7 g/dL (6.4-8.2)
--- NOTE | 2019-07-21 01:39 | NUR ---
ASSUMPTION OF CARE: PT UP TO PCU 5 FROM ED VIA GURNEY. PT ABLE TRANSFER SELF TO PCU BED. C/O OF ABD PAIN, N/V. IV FENTANYL GIVEN WITH NO EFFECT ON PAIN. IV ZOFRAN GIVEN WELL. PT IS A&O. LUNG SOUNDS ARE CLEAR, SPO2 >90% ON RA. PT IS ST WITH HR IN THE 120S. SBP IN THE 130S. BT X4. REPORTS LAST BM WAS A COUPLE DAYS AGO. 2 PIVS IN BILAT AC. NS AND CIPRO INFUSING. WILL CONTINUE TO MONITOR
[2019-07-21 03:54] LABS: BASOPHILS ABSOLUTE AUTO 0.05 K/mm3 (0.00-0.23); BASOPHILS PERCENT AUTO 0 % (0-2); EOSINOPHILS ABSOLUTE AUTO 0.01 K/mm3 (0.00-0.68); EOSINOPHILS PERCENT AUTO 0 % (0-6); Hematocrit 42.2 % (33.0-51.0); Hemoglobin 13.8 g/dL (11.5-16.0); IMMATURE GRAN ABSOLUTE AUTO 0.12 K/mm3 (0.00-0.10); IMMATURE GRAN PERCENT AUTO 1 % (0-1); LYMPHOCYTES ABSOLUTE AUTO 3.49 K/mm3 (0.84-5.20); LYMPHOCYTES PERCENT AUTO 15 % (21-46); MONOCYTES ABSOLUTE AUTO 2.05 K/mm3 (0.16-1.47); MONOCYTES PERCENT AUTO 9 % (4-13); Mean Corpuscular HGB 25.1 pg (26.0-34.0); Mean Corpuscular HGB Conc 32.7 g/dL (31.5-36.5); Mean Corpuscular Volume 77 fL (80-100); NEUTROPHILS ABSOLUTE AUTO 18.19 K/mm3 (1.96-9.15); NEUTROPHILS PERCENT AUTO 76 % (41-73); Platelet Count 493 K/mm3 (150-400); RDW Coefficient Variation 19.4 % (11.7-14.2); RDW Standard Deviation 52.6 fL (35.1-46.3); White Blood Cell Count 23.91 K/mm3 (4.00-11.30)
[2019-07-21 04:18] LABS: Anion Gap 7 mmol/L (6-16); Blood Urea Nitrogen 12 mg/dL (8-24); Bun/Creatinine Ratio 15.1 (12.0-20.0); CO2, Blood 25 mmol/L (21-32); Calcium, Blood 8.2 mg/dL (8.5-10.1); Chloride, Blood 102 mmol/L (98-108); Glomerular Filtration Rate >60 (60-); Glucose, Blood 118 mg/dL (70-99); Potassium, Blood 3.4 mmol/L (3.5-5.5); Sodium, Blood 134 mmol/L (136-145)
--- NOTE | 2019-07-21 06:39 | NUR ---
SHIFT SUMMARY: NO ACUTE CHANGES. PT REMAINS NAUSEOUS WITHOUT VOMITING. ZOFRAN X 2 GIVEN. PHENERGAN TAB X1 GIVEN. PT STATED ZOFRAN DOESNT WORK FOR HER, ONLY PHENERGAN DOES. C/O FREQUENT DULL ACHY ABD PAIN THAT WAS UNRELIEVED WITH 25MCG OF FENTANYL. PT REMAINS TACHYCARDIC WITH HR IN THE 120S AND GETTING HIGH 150-160 WITH MOVEMENT. SBP IN THE 140S. 3RD IV PLACED IN R WRIST AND IS CURRENTLY INFUSING WITH FLAGYL AND NS TKO. LFA IV INFUSING WITH LR AT 150MLS/HR. PT IS FEBRILE WITH TEMP OF 100.3. PT IS ABLE TO AMBULATE TO COMMODE WITHOUT ASSISTANCE. WILL PASS REPORT TO ONCOMING SHIFT
[2019-07-21 10:54] LABS: Thyroid Stimulating Hormone 0.39 uIU/mL (0.360-4.800)
[2019-07-21 13:20] LABS: U Amphetamine Screen Not Detected; U Barbituate Screen Not Detected; U Benzodiazapine Screen Not Detected; U Buprenorphine Screen DETECTED; U Cannabinoids Screen Not Detected; U Cocaine Screen Not Detected; U Methadone Screen Not Detected; U Methamphetamine Screen Not Detected; U Opiates Screen Not Detected; U Oxycodone Screen Not Detected; U Phencyclidine Screen Not Detected; U Propoxyphene Screen Not Detected
--- NOTE | 2019-07-21 17:05 | NUR ---
PT SUMMARY: PT ALERT AND ORIENTED X4 AT BASELINE. CURRENTLY RECEIVING IV ABO FOR COLITIS. HRR SINUS TACH ON THE 100'2-130'S. BP SYSTOLIC 130'S-150'S LOW GRADE FEVER OF 99, SATS ABOVE 95% ON ROOMAIR, DENIES SOB/CHEST PAIN. PT HAS BEEN IN PAIN MOST OF THE SHIFT NEW ORDER FOR ATIVAN RECEIVED. PT HAS BEEN TAKING ATIVAN AND FENTANYL TO HELP WITH THE PAIN AND WAS MORE EFFECTIVE THAN FENTANYL ALONE PER PT. PT ALSO HAS BEEN C/O NAUSEA ZOFRAN AND PHENERGAN GIVEN AND IS EFFECTIVE. PROVIDER CONSULT IN FOR GI DR STOREY WAS CALLED AND MADE AWARE. PT REMAINS NPO UNTIL FURTHER NOTICE FROM GI PROVIDER. AWAITING FOR SEND OUT COVID 19 RESULT, PT REMAINS ON ISOLATION. NO DIARRHEA NOTED FOR THE SHIFT. WAS HAVING PROBLEMS WITH VOIDING THIS MORNING BLADDER SCAN DONE ONLY 146 MLS OF URINE RETAINED. PT THEN WAS ABLE TO VOID NORMALLY, INDEPEDENT IN THE ROOM. LR RUNNING AT 100 MLS/HR. PT CURRENLTY RESTING IN BED ABLE TO MAKE NEEDS KNOWM WILL MONITOR
--- NOTE | 2019-07-21 23:10 | NUR ---
ASSUMED CARE AT 1900. PT A/O X4, IND. IN ROOM. PT FREQUENTLY ASKING ABOUT FENTANYL AND ATIVAN; EDUCATION PROVIDED. PT MED PER ORDER - SEE EMAR. PT RESTING QUIETLY AFTER MEDICATION ADMINISTRATION.
--- NOTE | 2019-07-22 05:06 | NUR ---
SHIFT SUMMARY PT IS A/O X4 AND IND. IN ROOM. PT HAS HAD SOME NAUSEA AND WAS MED PER ORDERS; SEE EMAR. NO VOMITING THIS SHIFT. PT REPORTS SHE IS VOIDING BUT HAS NOT HAD BM OR PASSED GAS X2 DAYS. PT HAS C/O PAIN DURING THE NIGHT AND HAS BEEN MEDICATED PER ORDERS. PT HAS BEEN REQUESTING FENTANYL AND ATIVAN TO BE GIVEN AT THE SAME TIME SO SHE CAN SLEEP. HOWEVER, O2 SAT. WAS NOTED TO BE LOW WHEN AT REST. PT EDUCATION PROVIDED ABOUT MEDICATIONS AND SAFETY WITH ADMINISTRATION WELL IMPORTANCE OF MAINTAINING O2 SAT. RN SPOKE WITH DR. MARTÍNEZ ABOUT PAIN MANAGEMENT AND PT RESPONSE TO ATIVAN & FENTANYL. ATIVAN DOSE ADJUSTED FROM 1MG TO 0.5MG. PT TOLERATING LOWER DOSE WELL. NO ACUTE CHANGES OVERNIGHT. HR NOTED TO BE TACHYCARDIC, WHICH APPARENTLY IS NORMAL FOR PT. WCTM.
--- NOTE | 2019-07-22 15:27 | NUR ---
PT STATUS CHANGED TO MEDICAL STATUS WITH NO TELE. HRR SINUS TACH ON 100'S THE REST OF THE VITALS STABLE. SATS ABOVE 95% ON ROOMAIR, AMBULATORY AND INDEPENDENT IN THE ROOM. PT CONTINUES ON IV ABO FOR UTI. PT OFTEN TAKES IV FENTANYL ALTERNATING WITH IV ATIVAN FOR PAIN AND ANXIETY. P WAS STARTED ON REGULAR DIET, CURRENTLY TOLERATING STILL HAS NAUSEA WITH NO EMESIS, ZOFRAN AND PHENERGAN GIVEN FOR THE SHIFT WITH EFFECTIVENESS. PT STILL NO REPORTED BOWEL MOVEMENT FOR THE SHIFT, ADEQUATE URINE OUTPUT. LR STILL RUNNING AT 150MLS/HR. REPORT GIVEN TO SURAJ SPRINGER.
--- NOTE | 2019-07-22 17:42 | NUR ---
PT AOX4 AND COOPERATIVE OF CARE. PT SEEMS WITHDRAWN AND QUIET ONLY ASKS WHEN HER MEDICATIONS ARE DUE. PT SITTING CROO LEGGED ON THE BED WATCHING TV. PT CAN CALL APPROPRIATELY. NO DISTRESS NOTED AT THIS TIME TREATED FOR ANXIETY, NAUSEA AND PAIN PER EMAR. WILL CONTINUE TO MONITOR.
[2019-07-23 05:22] LABS: BASOPHILS ABSOLUTE AUTO 0.07 K/mm3 (0.00-0.23); BASOPHILS PERCENT AUTO 1 % (0-2); EOSINOPHILS ABSOLUTE AUTO 0.35 K/mm3 (0.00-0.68); EOSINOPHILS PERCENT AUTO 3 % (0-6); Hematocrit 35.1 % (33.0-51.0); IMMATURE GRAN ABSOLUTE AUTO 0.03 K/mm3 (0.00-0.10); IMMATURE GRAN PERCENT AUTO 0 % (0-1); LYMPHOCYTES ABSOLUTE AUTO 3.49 K/mm3 (0.84-5.20); LYMPHOCYTES PERCENT AUTO 25 % (21-46); MONOCYTES ABSOLUTE AUTO 1.14 K/mm3 (0.16-1.47); MONOCYTES PERCENT AUTO 8 % (4-13); Mean Corpuscular HGB 25.8 pg (26.0-34.0); Mean Corpuscular HGB Conc 31.3 g/dL (31.5-36.5); Mean Platelet Volume 9.3 fL (9.1-12.4); NEUTROPHILS ABSOLUTE AUTO 8.68 K/mm3 (1.96-9.15); NEUTROPHILS PERCENT AUTO 63 % (41-73); Platelet Count 348 K/mm3 (150-400); RDW Coefficient Variation 20.1 % (11.7-14.2); Red Blood Cell Count 4.26 M/mm3 (3.80-5.20); White Blood Cell Count 13.76 K/mm3 (4.00-11.30)
[2019-07-23 05:23] LABS: Mean Corpuscular Volume 82 fL (80-100)
[2019-07-23 05:59] LABS: Alanine Aminotransfer (ALT/SGP 14 U/L (12-78); Albumin, Blood 2.5 g/dL (3.4-5.0); Albumin/Globulin Ratio 0.6 (0.8-1.8); Alk Phos 53 U/L (50-136); Anion Gap 5 mmol/L (6-16); Aspartate Aminotrans (AST/SGOT 11 U/L (12-37); Bilirubin, Total 0.2 mg/dL (0.1-1.0); Blood Urea Nitrogen 5 mg/dL (8-24); Bun/Creatinine Ratio 6.6 (12.0-20.0); CO2, Blood 26 mmol/L (21-32); Chloride, Blood 109 mmol/L (98-108); Creatinine, Blood 0.76 mg/dL (0.40-1.00); Globulin, Blood 4.1 g/dL (2.2-4.0); Glomerular Filtration Rate >60 (60-); Glucose, Blood 97 mg/dL (70-99); Potassium, Blood 4.1 mmol/L (3.5-5.5); Sodium, Blood 140 mmol/L (136-145); Total Protein, Blood 6.6 g/dL (6.4-8.2)
--- NOTE | 2019-07-23 07:11 | NUR ---
SUMMARY PT CONTINUES TO COMPLAIN OF PAIN, ANXIETY AND NAUSEA. PT MEDICATED PER EMAR. PT DID NOT SLEEP MUCH DURING SHIFT. PT HAD NO OTHER ISSUES NOTED. PT IS WATCHING TV THIS AM AND IN NO DISTRESS. CALL LIGHT IN REACH.
[2019-07-23] MEDS ORDERED: CEFD300 PO (13:37)
[2019-07-23] MEDS ORDERED: METR500 PO (13:38)
--- NOTE | 2019-07-23 14:18 | NUR ---
PT DISCHARGE AT 1405. PT AOX4 AND COOPERATIVE OF CARE. PT HAS BEEN WITHDRAWN AND FLAT AT TIMES THEN WILL SEEM TO WARM UP AND BE HAPPY. PT TREATED FOR PAIN AND ANXIETY PER EMAR. PT HAD ALL PAPERWORK REVIEWED AND EDUCATIONAL MATERIAL SENT WITH HER. MEDICATION FAXED TO [facility] IN [place]. NO DISTRESS NOTED, PT ESCORTED VIA WHEELCHAIR TO N ENTRANCE. PARENTS TO TRANSPORT. ALL PERSONAL BELONGINGS WERE WITH PT.
== END 2019-07-23 14:13 | disposition home or self-care (01) | DRG 872 ==
LOC: ER 20:28 → PCU 07-21 00:27 → MEDS 07-22 15:08 → ENPENDDIS 07-23 12:35 → MEDS 07-23 14:13
PROVIDERS: Emergency Medicine; Internal Medicine; Internal Medicine Endocrinology, Diabetes & Metabolism; ADMIT Family Medicine
DX: A40.9 Streptococcal sepsis, unspecified (principal); N39.0 Urinary tract infection, site not specified; E87.1 Hypo-osmolality and hyponatremia; Z68.41 Body mass index [BMI] 40.0-44.9, adult; K52.9 Noninfective gastroenteritis and colitis, unspecified; I10 Essential (primary) hypertension; E87.6 Hypokalemia; K21.9 Gastro-esophageal reflux disease without esophagitis; G89.4 Chronic pain syndrome; F41.8 Other specified anxiety disorders; F43.10 Post-traumatic stress disorder, unspecified; D47.3 Essential (hemorrhagic) thrombocythemia; G62.9 Polyneuropathy, unspecified; Z20.828 Contact with and (suspected) exposure to other viral communicable diseases; E66.9 Obesity, unspecified; F17.200 Nicotine dependence, unspecified, uncomplicated; Z88.6 Allergy status to analgesic agent; Z88.5 Allergy status to narcotic agent; Z86.14 Personal history of Methicillin resistant Staphylococcus aureus infection
CPT/HCPCS: 36415; 74177; 76705; 80048; 80053; 81001; 81025; 82550; 83605; 83690; 84443; 85025; 87086; 87147; 93005; 93010; 94760; 96361-59; 96365-59; 96375-59; 99285-25; A9270; C9113; G0480; J0696; J0744; J1200; J1630; J1650; J2060; J2405; J2550; J3010; J7030; J7050; J7120; Q9967; U0003

== ENCOUNTER 2019-10-24 11:45 | Inpatient (IN) | payer OTHER ==
[~2019-10-24] VITALS: Ht 167.6 cm; Wt 117.3 kg
[~2019-10-24 11:45] MED LIST changes: +METR500 PO
[2019-10-24] MEDS ORDERED: Prozac20 MG PO (12:09)
[2019-10-24] MEDS ORDERED: METO50ER PO (12:10)
[2019-10-24] MEDS ORDERED: Diflucan150 MG PO (12:11)
[2019-10-24] MEDS ORDERED: PRED20 PO (12:12)
[2019-10-24] MEDS ORDERED: AMOCLA875 PO (12:12)
[2019-10-24] MEDS ORDERED: Flovent 44 mc10.6 GM INH (12:13)
[2019-10-24] MEDS ORDERED: NARCAN4 M1 (12:14)
[2019-10-24 12:37] LABS: BASOPHILS ABSOLUTE AUTO 0.06 K/mm3 (0.00-0.23); BASOPHILS PERCENT AUTO 0 % (0-2); EOSINOPHILS ABSOLUTE AUTO 0.11 K/mm3 (0.00-0.68); EOSINOPHILS PERCENT AUTO 1 % (0-6); Hematocrit 43.7 % (33.0-51.0); Hemoglobin 13.6 g/dL (11.5-16.0); IMMATURE GRAN ABSOLUTE AUTO 0.12 K/mm3 (0.00-0.10); IMMATURE GRAN PERCENT AUTO 1 % (0-1); LYMPHOCYTES PERCENT AUTO 9 % (21-46); MONOCYTES ABSOLUTE AUTO 0.84 K/mm3 (0.16-1.47); MONOCYTES PERCENT AUTO 4 % (4-13); Mean Corpuscular HGB 27.1 pg (26.0-34.0); Mean Corpuscular HGB Conc 31.1 g/dL (31.5-36.5); Mean Corpuscular Volume 87 fL (80-100); Mean Platelet Volume 9.2 fL (9.1-12.4); NEUTROPHILS ABSOLUTE AUTO 19.52 K/mm3 (1.96-9.15); NEUTROPHILS PERCENT AUTO 86 % (41-73); Platelet Count 471 K/mm3 (150-400); RDW Coefficient Variation 18.7 % (11.7-14.2); RDW Standard Deviation 59.9 fL (35.1-46.3); Red Blood Cell Count 5.02 M/mm3 (3.80-5.20); White Blood Cell Count 22.65 K/mm3 (4.00-11.30)
[2019-10-24 12:51] LABS: Alanine Aminotransfer (ALT/SGP 14 U/L (12-78); Albumin, Blood 3.3 g/dL (3.4-5.0); Albumin/Globulin Ratio 0.6 (0.8-1.8); Alk Phos 75 U/L (50-136); Anion Gap 11 mmol/L (6-16); Aspartate Aminotrans (AST/SGOT 26 U/L (12-37); Bilirubin, Total 0.2 mg/dL (0.1-1.0); Blood Urea Nitrogen 9 mg/dL (8-24); Bun/Creatinine Ratio 8.8 (12.0-20.0); CO2, Blood 21 mmol/L (21-32); Chloride, Blood 106 mmol/L (98-108); Creatinine, Blood 1.02 mg/dL (0.40-1.00); Globulin, Blood 5.1 g/dL (2.2-4.0); Glomerular Filtration Rate >60 (60-); Glucose, Blood 103 mg/dL (70-99); Potassium, Blood 4.1 mmol/L (3.5-5.5); Sodium, Blood 138 mmol/L (136-145); Total Protein, Blood 8.4 g/dL (6.4-8.2); Troponin I <0.015 ng/mL (0.000-0.040)
[2019-10-24] MEDS ORDERED: FUROSEMIDE40 MG PO (14:48)
[2019-10-24] MEDS ORDERED: Hydroxyzine HCl50 MG PO (14:48)
[2019-10-24] MEDS ORDERED: Cymbalta30 MG PO (14:51)
[2019-10-24] MEDS ORDERED: FURO40 PO (14:53)
[2019-10-24] MEDS ORDERED: Neurontin400 MG PO (14:53)
[2019-10-24] MEDS ORDERED: GABA300 PO (15:10)
[2019-10-24 16:36] LABS: Source, Urine Clean Catch
[2019-10-24 16:42] LABS: Appearance, Urine Clear (Clear); Bilirubin, Urine Neg (Neg); Blood, Urine 1+ (Neg); Color, Urine Yellow (P-Yellow); Glucose Qualitative, Urine Neg (Neg); Ketones, Urine Neg (Neg); Leukocyte Esterase, Urine Neg (Neg); Nitrite, Urine Neg (Neg); Protein, Urine Neg (Neg); Urobilinogen, Urine NORM (Normal)
[2019-10-24 17:07] LABS: U Amphetamine Screen Not Detected; U Barbituate Screen Not Detected; U Benzodiazapine Screen Not Detected; U Cocaine Screen Not Detected; U Methadone Screen Not Detected; U Methamphetamine Screen Not Detected; U Opiates Screen Not Detected
[2019-10-24 17:08] LABS: U Buprenorphine Screen DETECTED; U Cannabinoids Screen Not Detected; U Oxycodone Screen Not Detected; U Phencyclidine Screen Not Detected; U Propoxyphene Screen Not Detected
[2019-10-24 17:19] LABS: Bacteria Few /hpf; Red Blood Cells, Urine 0-2 /hpf (0-2); Squamous Epithelial Cells Few /hpf (Few); White Blood Cells, Urine 0-2 /hpf (0-5)
--- NOTE | 2019-10-24 17:52 | NUR ---
SHIFT NOTE PT ARRIVED FROM RT THIS AFTERNOON WITH C/O SEPSIS. PT WITH INTERMITTENT AMS THAT APPEARS TO HAVE A BEHAVIOR COMPONENT. PT WITH EXTENSIVE HX OF DRUG ABUSE AND MENTAL HEALTH ISSUES. PT REPORTS EXTENSIVE HX OF ULCERATIVE COLITIS WITH CONSTIPATION ONLY. PT HAS BEEN SEEN NUMEROUS TIMES FOR UC AND CLEMENT SANCHEZ DR'S FOR LACK OF RESOLUTION OF SYMPTOMS, ALSO REPORTS LACK OF FOLLOW UP AND NONCOMPLIANCE SHE DOES NOT TAKE THE MEDICATIONS THAT HAVE BEEN PRESCRIBED BY GI. PT'S MED LIST IS VAGUELY UPDATED PT BEGINS TO STARE OFF WHEN ASKED QUESTIONS AND DOES NOT ANSWER WHAT SHE HAS BEEN ASKED, BUT IS ABLE TO ASK FOR FOOD AND SODA WITHOUT DIFFICULTY. URINE WAS SENT TO LAB. NS IS INFUSING WHICH PT BECAME VERY CONCERNED ABOUT THE NS INFUSION STS THAT SHE WILL "GET HIVES FROM THAT BECAUSE IT IS IN MORPHINE" PT ASKED IF SHE HAD AN ISSUE WITH THE NS THAT WAS GIVEN TO HER IN THE ER STS "NO IT'S NOT THE SAME" IT IS DIFFICULT TO ASSESS PT'S MENTAL STATUS RELATED TO COGNITIVE FUNCTION
[2019-10-25 03:53] LABS: Hematocrit 35.6 % (33.0-51.0); Hemoglobin 11.1 g/dL (11.5-16.0); Mean Corpuscular HGB 27.1 pg (26.0-34.0); Mean Corpuscular HGB Conc 31.2 g/dL (31.5-36.5); Mean Corpuscular Volume 87 fL (80-100); Mean Platelet Volume 9.5 fL (9.1-12.4); Platelet Count 383 K/mm3 (150-400); RDW Standard Deviation 60.6 fL (35.1-46.3); White Blood Cell Count 13.98 K/mm3 (4.00-11.30)
[2019-10-25 04:20] LABS: Anion Gap 7 mmol/L (6-16); Blood Urea Nitrogen 8 mg/dL (8-24); Bun/Creatinine Ratio 8.2 (12.0-20.0); CO2, Blood 27 mmol/L (21-32); Chloride, Blood 107 mmol/L (98-108); Creatinine, Blood 0.98 mg/dL (0.40-1.00); Glomerular Filtration Rate >60 (60-); Glucose, Blood 126 mg/dL (70-99); Potassium, Blood 3.6 mmol/L (3.5-5.5); Sodium, Blood 141 mmol/L (136-145)
--- NOTE | 2019-10-25 06:19 | NUR ---
END OF SHIFT SUMMARY PT HAD FLAT AFFECT AND WAS IRRITABLE, THOUGH COOPERATIVE T/O SHIFT. PT SPEECH WAS INCOMPREHENSIBLE AT TIMES. OFTEN GARBLED. VSS. SPO2 >95% ON RA. MILD COUGH, WAS ABLE TO OBTAIN A SPUTUM SAMPLE. TELEMETRY REPORTS SR HR 60'S. PT UP TO BATHROOM WITH SBA. PT STATES NO BM THE PAST SEVERAL DAYS. GAVE HER SENNOKOT AND MIROLAX PER EMAR. PT DID NOT SLEEP MUCH DURING THIS SHIFT. WAS ABLE TO EAT 2 SANDWICHES; L IV INFILTRATED. NEW IV IN L ARM PLACED. CALL LIGHT IN REACH. WILL CONTINUE TO MONITOR UNTIL END OF SHIFT.
[2019-10-25] MEDS ORDERED: ACET325 (14:18)
[2019-10-25] MEDS ORDERED: SUBOXONE 8 MG-1 EACH SL (14:18)
[2019-10-25] MEDS ORDERED: Prozac20 MG (14:19)
[2019-10-25] MEDS ORDERED: SENN187 PO (14:19)
[2019-10-25] MEDS ORDERED: Humibid-LA 600600 MG PO (14:20)
[2019-10-25] MEDS ORDERED: MOME220I INH (14:20)
[2019-10-25] MEDS ORDERED: AZIT250 PO (14:21)
[2019-10-25] MEDS ORDERED: CEFP200 PO (14:21)
[2019-10-25] MEDS ORDERED: LISI5 (14:22)
[2019-10-25] MEDS ORDERED: VISBIOME (14:23)
== END 2019-10-25 14:46 | disposition home or self-care (01) | DRG 871 ==
LOC: ER 11:45 → PCU 14:46
PROVIDERS: Emergency Medicine; Nurse Practitioner Acute Care; ADMIT Internal Medicine
DX: A41.9 Sepsis, unspecified organism (principal); J18.9 Pneumonia, unspecified organism; Z68.41 Body mass index [BMI] 40.0-44.9, adult; F11.20 Opioid dependence, uncomplicated; Q05.9 Spina bifida, unspecified; F42.9 Obsessive-compulsive disorder, unspecified; F43.10 Post-traumatic stress disorder, unspecified; F17.210 Nicotine dependence, cigarettes, uncomplicated; J45.909 Unspecified asthma, uncomplicated; E66.01 Morbid (severe) obesity due to excess calories; K21.9 Gastro-esophageal reflux disease without esophagitis; B37.3 Candidiasis of vulva and vagina; R65.20 Severe sepsis without septic shock; F41.1 Generalized anxiety disorder; I95.9 Hypotension, unspecified; F32.9 Major depressive disorder, single episode, unspecified; I10 Essential (primary) hypertension
CPT/HCPCS: 36415; 71045; 80048; 80053; 81001; 83605; 83735; 83880; 84145; 84484; 85025; 85027; 85379; 87040; 87070; 87147; 87205; 87449; 93005; 93010; 94640; 94760; 96361; 96365; 99285-25; J0696; J7030

== ENCOUNTER 2019-12-23 02:57 | Emergency (ER) | payer OTHER ==
[~2019-12-23] VITALS: Ht 167.6 cm; Wt 108.9 kg
[~2019-12-23 02:57] MED LIST changes: +AMOCLA875 PO; +AZIT250 PO; +CEFP200 PO; +Diflucan150 MG PO; +FUROSEMIDE40 MG PO; +Flovent 44 mc10.6 GM INH; +Humibid-LA 600600 MG PO; +LISI5; +METO50ER PO; +MOME220I INH; +NARCAN4 M1; +Neurontin400 MG PO; +Prozac20 MG; +Prozac20 MG PO; +SENN187 PO; +SUBOXONE 8 MG-1 EACH SL; +VISBIOME
[2019-12-23 03:29] LABS: BASOPHILS ABSOLUTE AUTO 0.04 K/mm3 (0.00-0.23); BASOPHILS PERCENT AUTO 0 % (0-2); EOSINOPHILS ABSOLUTE AUTO 0.01 K/mm3 (0.00-0.68); EOSINOPHILS PERCENT AUTO 0 % (0-6); Hematocrit 46.1 % (33.0-51.0); Hemoglobin 15.4 g/dL (11.5-16.0); IMMATURE GRAN ABSOLUTE AUTO 0.11 K/mm3 (0.00-0.10); IMMATURE GRAN PERCENT AUTO 1 % (0-1); LYMPHOCYTES ABSOLUTE AUTO 1.65 K/mm3 (0.84-5.20); LYMPHOCYTES PERCENT AUTO 8 % (21-46); MONOCYTES ABSOLUTE AUTO 0.64 K/mm3 (0.16-1.47); MONOCYTES PERCENT AUTO 3 % (4-13); Mean Corpuscular HGB 28.8 pg (26.0-34.0); Mean Corpuscular HGB Conc 33.4 g/dL (31.5-36.5); Mean Corpuscular Volume 86 fL (80-100); Mean Platelet Volume 9.3 fL (9.1-12.4); NEUTROPHILS ABSOLUTE AUTO 18.85 K/mm3 (1.96-9.15); NEUTROPHILS PERCENT AUTO 89 % (41-73); Platelet Count 568 K/mm3 (150-400); RDW Coefficient Variation 16.8 % (11.7-14.2); RDW Standard Deviation 53.1 fL (35.1-46.3); Red Blood Cell Count 5.35 M/mm3 (3.80-5.20)
[2019-12-23 03:49] LABS: Alanine Aminotransfer (ALT/SGP 13 U/L (12-78); Albumin, Blood 3.6 g/dL (3.4-5.0); Albumin/Globulin Ratio 0.6 (0.8-1.8); Alk Phos 90 U/L (50-136); Anion Gap 13 mmol/L (6-16); Aspartate Aminotrans (AST/SGOT 19 U/L (12-37); Bilirubin, Total 0.5 mg/dL (0.1-1.0); Blood Urea Nitrogen 13 mg/dL (8-24); Bun/Creatinine Ratio 15.8 (12.0-20.0); CO2, Blood 19 mmol/L (21-32); Calcium, Blood 10.4 mg/dL (8.5-10.1); Chloride, Blood 106 mmol/L (98-108); Creatinine, Blood 0.83 mg/dL (0.40-1.00); Globulin, Blood 5.6 g/dL (2.2-4.0); Glomerular Filtration Rate >60 (60-); Glucose, Blood 153 mg/dL (70-99); Potassium, Blood 3.7 mmol/L (3.5-5.5); Sodium, Blood 138 mmol/L (136-145); Total Protein, Blood 9.2 g/dL (6.4-8.2)
== END 2019-12-23 06:35 | disposition home or self-care (01) ==
LOC: ER 02:57
PROVIDERS: Emergency Medicine
DX: R11.15 Cyclical vomiting syndrome unrelated to migraine (principal); R10.9 Unspecified abdominal pain; F17.210 Nicotine dependence, cigarettes, uncomplicated; Z79.51 Long term (current) use of inhaled steroids; Z79.899 Other long term (current) drug therapy; Z88.6 Allergy status to analgesic agent; Z88.5 Allergy status to narcotic agent
CPT/HCPCS: 80053; 83690; 85025; 96361; 96374; 96375; 99284-25; J1630; J2550; J7030

== ENCOUNTER 2020-03-10 00:32 | Day surgery (SDC) | payer OTHER ==
[~2020-03-10 00:32] MED LIST changes: +ACET325 PO; -Prozac20 MG
== END 2020-03-10 22:52 | disposition home or self-care (01) ==
LOC: WOUND 00:32
DX: L97.512 Non-pressure chronic ulcer of other part of right foot with fat layer exposed (principal); J45.909 Unspecified asthma, uncomplicated; I11.0 Hypertensive heart disease with heart failure; I50.9 Heart failure, unspecified; I49.9 Cardiac arrhythmia, unspecified; I73.9 Peripheral vascular disease, unspecified; F17.200 Nicotine dependence, unspecified, uncomplicated; Z87.19 Personal history of other diseases of the digestive system; Z91.048 Other nonmedicinal substance allergy status; Z88.6 Allergy status to analgesic agent; Z88.5 Allergy status to narcotic agent
CPT/HCPCS: A9270; G0463

== ENCOUNTER 2020-03-11 20:39 | Inpatient (IN) | payer OTHER ==
[~2020-03-11] VITALS: Ht 167.6 cm; Wt 103.0 kg
[2020-03-11 21:38] LABS: BASOPHILS ABSOLUTE AUTO 0.07 K/mm3 (0.00-0.23); BASOPHILS PERCENT AUTO 0 % (0-2); EOSINOPHILS ABSOLUTE AUTO 0.01 K/mm3 (0.00-0.68); EOSINOPHILS PERCENT AUTO 0 % (0-6); Hematocrit 39.5 % (33.0-51.0); Hemoglobin 13.2 g/dL (11.5-16.0); IMMATURE GRAN ABSOLUTE AUTO 0.27 K/mm3 (0.00-0.10); IMMATURE GRAN PERCENT AUTO 1 % (0-1); LYMPHOCYTES ABSOLUTE AUTO 1.18 K/mm3 (0.84-5.20); LYMPHOCYTES PERCENT AUTO 4 % (21-46); MONOCYTES ABSOLUTE AUTO 1.07 K/mm3 (0.16-1.47); MONOCYTES PERCENT AUTO 3 % (4-13); Mean Corpuscular HGB 29.8 pg (26.0-34.0); Mean Corpuscular HGB Conc 33.4 g/dL (31.5-36.5); Mean Corpuscular Volume 89 fL (80-100); Mean Platelet Volume 9.1 fL (9.1-12.4); NEUTROPHILS ABSOLUTE AUTO 31.57 K/mm3 (1.96-9.15); NEUTROPHILS PERCENT AUTO 92 % (41-73); Platelet Count 628 K/mm3 (150-400); RDW Coefficient Variation 15.3 % (11.7-14.2); RDW Standard Deviation 50.3 fL (35.1-46.3); Red Blood Cell Count 4.43 M/mm3 (3.80-5.20); White Blood Cell Count 34.17 K/mm3 (4.00-11.30)
[2020-03-11 21:56] LABS: Alanine Aminotransfer (ALT/SGP 13 U/L (12-78); Albumin, Blood 3.2 g/dL (3.4-5.0); Albumin/Globulin Ratio 0.6 (0.8-1.8); Alk Phos 85 U/L (50-136); Anion Gap 15 mmol/L (6-16); Aspartate Aminotrans (AST/SGOT 22 U/L (12-37); Bilirubin, Total 0.5 mg/dL (0.1-1.0); Blood Urea Nitrogen 9 mg/dL (8-24); Bun/Creatinine Ratio 14.8 (12.0-20.0); CO2, Blood 18 mmol/L (21-32); Calcium, Blood 9.6 mg/dL (8.5-10.1); Chloride, Blood 108 mmol/L (98-108); Creatinine, Blood 0.61 mg/dL (0.40-1.00); Globulin, Blood 5.2 g/dL (2.2-4.0); Glomerular Filtration Rate >60 (60-); Glucose, Blood 128 mg/dL (70-99); Potassium, Blood 3.5 mmol/L (3.5-5.5); Sodium, Blood 141 mmol/L (136-145); Total Protein, Blood 8.4 g/dL (6.4-8.2)
[2020-03-12 03:38] LABS: Influenza A, PCR Negative (NEGATIVE); Influenza B, PCR Negative (NEGATIVE); Resp Syncytial Virus, PCR Negative (NEGATIVE); SARS-Cov-2 (COVID-19) PCR, MMC Negative (NEGATIVE)
[2020-03-12 03:44] LABS: Source, Urine Clean Catch
[2020-03-12 03:47] LABS: Bilirubin, Urine Neg (Neg); Blood, Urine 2+ (Neg); Glucose Qualitative, Urine Neg (Neg); Ketones, Urine 1+ (Neg); Leukocyte Esterase, Urine 1+ (Neg); Nitrite, Urine Neg (Neg); Protein, Urine 2+ (Neg); Specific Gravity, Urine 1.015 (1.003-1.022); Urobilinogen, Urine NORM (Normal)
[2020-03-12 03:53] LABS: Color, Urine Yellow (P-Yellow)
[2020-03-12 03:57] LABS: Appearance, Urine Hazy (Clear)
[2020-03-12 03:58] LABS: Amorphous Light (0-Heavy); Bacteria Mod /hpf; Mucus Light (0-Heavy); Red Blood Cells, Urine 0-2 /hpf (0-2); Squamous Epithelial Cells Mod /hpf (Few)
[2020-03-12 06:30] LABS: Creatine Kinase MB 5.2 ng/mL (0.0-3.6); Creatine Kinase MB Index 1.1 (0.0-4.0)
--- NOTE | 2020-03-12 07:05 | NUR ---
SHIFT SUMMARY PATIENT ARRIVED TO ROOM 344 AT 0357 VIA STRETCHER. PATIENT ALERT AND ORIENTED X4. SHE IS WEAK AND TREMBLING WITH A FLUSHED FACE AND DRY HEAVING. PATIENT PLACED ON TELE AND HER HEART RATE WAS IN THE 150'S. IV REGLAN AND ATIVAN ADMINISTERED PER EMAR. SINCE THEN HER HEART RATE HAS BEEN TRENDING DOWN. LABORER LANDSCAPE PHYSICIAN, DR CLINTON, NOTIFIED OF THE PATIENT'S ELEVATED HEART RATE AND HE SAID TO CONTINUE TO MONITOR. PATIENT IS NOW SLEEPING. IV PATENT AND INFUSING. BED IN LOWEST POSITION WITH WHEELS LOCKED AND ALARM ON. CALL LIGHT WITHIN REACH. REPORT GIVEN TO ONCOMING RN.
[2020-03-12 07:43] LABS: U Amphetamine Screen Not Detected; U Barbituate Screen Not Detected; U Methamphetamine Screen Not Detected
[2020-03-12 07:44] LABS: U Benzodiazapine Screen Not Detected; U Buprenorphine Screen DETECTED; U Cannabinoids Screen Not Detected; U Cocaine Screen Not Detected; U Methadone Screen Not Detected; U Opiates Screen Not Detected; U Oxycodone Screen Not Detected; U Phencyclidine Screen Not Detected; U Propoxyphene Screen Not Detected
--- NOTE | 2020-03-12 07:49 | NUR ---
ASSUMED CARE OF PT- PT IN BED LETHARGIC, POSSIBLY R/T IV ATIVAN GIVEN PRIOR TO SHIFT CHANGE. PT ON TELE HR 140'S SINUS TACH. RESP RATE 40 VEW SCORE OF 7. CALLED DR CABALLERO. DR AN. RECIEVED ORDER FOR EKG STAT. EKG SHOWED HR [address] CABALLERO WITH THE RESULT. PLAN IS TO CONTINUE TO MONITOR THE PT AT THIS TIME. PT HAS BP MEDS IN EMAR BUT NO RATE CONTROL MEDICATIONS. NO NEW ORDERS AT THIS TIME WILL CTM. DONOR RECRUITER ALEX NOTIFIED OF THE PT STATUS.
--- NOTE | 2020-03-12 19:09 | NUR ---
SHIFT SUMMARY- PT ALERT AND ORIENTED. BED ALARM IS STILL SET FOR SAFETY. PT WAS TO THE BATHROOM A COUPLE OF TIMES IN THE MORNING BUT HAS NOT GONE RECENTLY. PASSED ON TO NIGHT RN IN BEDSIDE REPORT. PT HAS HAD NO C/O PAIN. HR SEEMS TO BE MORE REGULAR NOW ON TELE. PT IS A LITTLE WORRIED THAT SHE WILL HAVE TROUBLE SLEEPING TONIGHT, SHE STATED IN BEDSIDE REPORT. PT CURRENTLY SITTING UP IN BED, CALL LIGHT IN REACH, BED ALARM FOR SAFETY. PASSED ON TO NIGHT RN IN BEDSIDE REPORT.
--- NOTE | 2020-03-12 21:22 | NUR ---
ROOM CHANGE RECIEVED REPORT FROM PRIMARY RN MURPHY DEL CID @ 2121. REPORTED THAT PATIENT IS ALERT, ORIENTED AND COOPERATIVE. HAS NOT HAD MUCH NAUSEA THIS NIGHT COMPARED TO PREVIOUS. AWAIT ARRIVAL OF PATIENT TO NEW ROOM.
--- NOTE | 2020-03-13 03:57 | NUR ---
SHIFT SUMMARY A/O, ABLE TO MAKE NEEDS KNOWN. COOPERATIVE WITH CARE. CALLS AND ANSWERS QUESTIONS APPROPRIATELY. NO C/O PAIN/DISCOMFORT OR N/V OVERNIGHT. UP WITH 1P TO BATHROOM; STEADY GAIT. APPEARED TO REST MUCH OF NIGHT. VSS/AFEBRILE. TELE RUNNING SR IN 90's WITH NO EVENTS OVERNIGHT. BED REMAINS IN LOWEST POSITION. CALL LIGHT WITHIN REACH. CONTINUE WITH CURRENT PLAN OF CARE. REPORT TO ONCOMING RN.
[2020-03-13 05:42] LABS: BASOPHILS ABSOLUTE AUTO 0.05 K/mm3 (0.00-0.23); BASOPHILS PERCENT AUTO 1 % (0-2); EOSINOPHILS PERCENT AUTO 1 % (0-6); Hematocrit 32.3 % (33.0-51.0); Hemoglobin 10.1 g/dL (11.5-16.0); IMMATURE GRAN ABSOLUTE AUTO 0.02 K/mm3 (0.00-0.10); IMMATURE GRAN PERCENT AUTO 0 % (0-1); LYMPHOCYTES ABSOLUTE AUTO 4.21 K/mm3 (0.84-5.20); LYMPHOCYTES PERCENT AUTO 41 % (21-46); MONOCYTES ABSOLUTE AUTO 0.78 K/mm3 (0.16-1.47); MONOCYTES PERCENT AUTO 8 % (4-13); Mean Corpuscular HGB 30.2 pg (26.0-34.0); Mean Corpuscular HGB Conc 31.3 g/dL (31.5-36.5); Mean Platelet Volume 9.8 fL (9.1-12.4); NEUTROPHILS ABSOLUTE AUTO 5.08 K/mm3 (1.96-9.15); NEUTROPHILS PERCENT AUTO 50 % (41-73); Platelet Count 418 K/mm3 (150-400); RDW Coefficient Variation 16.9 % (11.7-14.2); RDW Standard Deviation 59.9 fL (35.1-46.3); Red Blood Cell Count 3.34 M/mm3 (3.80-5.20); White Blood Cell Count 10.24 K/mm3 (4.00-11.30)
[2020-03-13 05:46] LABS: Mean Corpuscular Volume 97 fL (80-100)
[2020-03-13 05:58] LABS: Alanine Aminotransfer (ALT/SGP 13 U/L (12-78); Albumin, Blood 2.4 g/dL (3.4-5.0); Albumin/Globulin Ratio 0.6 (0.8-1.8); Alk Phos 58 U/L (50-136); Anion Gap 8 mmol/L (6-16); Aspartate Aminotrans (AST/SGOT 15 U/L (12-37); Bilirubin, Total 0.3 mg/dL (0.1-1.0); Blood Urea Nitrogen 9 mg/dL (8-24); Bun/Creatinine Ratio 12.8 (12.0-20.0); CO2, Blood 26 mmol/L (21-32); Calcium, Blood 8.2 mg/dL (8.5-10.1); Chloride, Blood 108 mmol/L (98-108); Globulin, Blood 4.2 g/dL (2.2-4.0); Glomerular Filtration Rate >60 (60-); Glucose, Blood 118 mg/dL (70-99); Potassium, Blood 3.5 mmol/L (3.5-5.5); Sodium, Blood 142 mmol/L (136-145); Total Protein, Blood 6.6 g/dL (6.4-8.2)
[2020-03-13] MEDS ORDERED: CLON.1 PO (12:04)
[2020-03-13] MEDS ORDERED: METO10SY PO (12:06)
[2020-03-13] MEDS ORDERED: PROM25 PO (12:06)
--- NOTE | 2020-03-13 15:33 | NUR ---
PT WAS DISCHARGED ALERT AND ORIENTED WITH BELONGINGS AT SIDE AND AMBULATORY. PT MADE NO COMPLAINTS OF SOB, PAIN OR ANXIETY. PT WAS EDUCATED ON FU APPOINTMENTS NEEDED AND EDUCATION WAS PROVIDED.
== END 2020-03-13 12:55 | disposition home or self-care (01) | DRG 395 ==
LOC: ER 20:39 → MEDS 20:40 → ENPENDDIS 03-13 11:10 → MEDS 03-13 12:55
PROVIDERS: Emergency Medicine; Student in an Organized Health Care Education/Training Program; ADMIT Internal Medicine
DX: R11.15 Cyclical vomiting syndrome unrelated to migraine (principal); F17.210 Nicotine dependence, cigarettes, uncomplicated; Z20.822 Contact with and (suspected) exposure to COVID-19; E66.9 Obesity, unspecified; Z68.37 Body mass index [BMI] 37.0-37.9, adult; F32.9 Major depressive disorder, single episode, unspecified; F42.9 Obsessive-compulsive disorder, unspecified; E86.0 Dehydration; I10 Essential (primary) hypertension; R00.0 Tachycardia, unspecified
CPT/HCPCS: 0241U; 36415; 36680; 73630; 74176; 80053; 81001; 82550; 82553; 83605; 83690; 83880; 84703; 85025; 93005; 93010; 94640; 94760; 96374-59; 96375; 96375-59; 96376; 99285-25; A9270; G0378; J1200; J1630; J1650; J2001; J2060; J2405; J2550; J2765; J7030

== ENCOUNTER 2020-03-17 00:12 | Day surgery (SDC) | payer OTHER ==
[~2020-03-17 00:12] MED LIST changes: +METO10SY PO
== END 2020-03-17 23:45 ==
LOC: WOUND 00:12
DX: L97.512 Non-pressure chronic ulcer of other part of right foot with fat layer exposed (principal); S91.104D Unspecified open wound of right lesser toe(s) without damage to nail, subsequent encounter; R77.0 Abnormality of albumin
CPT/HCPCS: G0463

== ENCOUNTER 2020-03-31 01:10 | Day surgery (SDC) | payer OTHER | END 2020-03-31 23:45 | disposition home or self-care (01) | LOC: WOUND 01:10 | DX: S91.104D Unspecified open wound of right lesser toe(s) without damage to nail, subsequent encounter (principal); R77.0 Abnormality of albumin; J45.909 Unspecified asthma, uncomplicated; I10 Essential (primary) hypertension; I49.9 Cardiac arrhythmia, unspecified; X58.XXXD Exposure to other specified factors, subsequent encounter | CPT/HCPCS: A9270; G0463 ==

== ENCOUNTER 2020-04-07 00:42 | Day surgery (SDC) | payer OTHER | END 2020-04-07 23:08 | disposition home or self-care (01) | LOC: WOUND 00:42 | DX: S91.104D Unspecified open wound of right lesser toe(s) without damage to nail, subsequent encounter (principal); L98.499 Non-pressure chronic ulcer of skin of other sites with unspecified severity; R77.0 Abnormality of albumin; J45.909 Unspecified asthma, uncomplicated; I10 Essential (primary) hypertension; X58.XXXD Exposure to other specified factors, subsequent encounter | CPT/HCPCS: A9270; G0463 ==

== ENCOUNTER 2020-05-15 17:05 | Emergency (ER) | payer OTHER ==
[~2020-05-15] VITALS: Ht 167.6 cm; Wt 104.3 kg
[2020-05-15 18:11] LABS: BASOPHILS ABSOLUTE AUTO 0.04 K/mm3 (0.00-0.23); BASOPHILS PERCENT AUTO 0 % (0-2); EOSINOPHILS ABSOLUTE AUTO 0.23 K/mm3 (0.00-0.68); EOSINOPHILS PERCENT AUTO 3 % (0-6); Hematocrit 40.3 % (33.0-51.0); Hemoglobin 13.1 g/dL (11.5-16.0); IMMATURE GRAN ABSOLUTE AUTO 0.02 K/mm3 (0.00-0.10); IMMATURE GRAN PERCENT AUTO 0 % (0-1); LYMPHOCYTES ABSOLUTE AUTO 3.87 K/mm3 (0.84-5.20); LYMPHOCYTES PERCENT AUTO 43 % (21-46); MONOCYTES ABSOLUTE AUTO 0.57 K/mm3 (0.16-1.47); MONOCYTES PERCENT AUTO 6 % (4-13); Mean Corpuscular HGB 30.7 pg (26.0-34.0); Mean Corpuscular HGB Conc 32.5 g/dL (31.5-36.5); Mean Corpuscular Volume 94 fL (80-100); Mean Platelet Volume 9.4 fL (9.1-12.4); NEUTROPHILS ABSOLUTE AUTO 4.33 K/mm3 (1.96-9.15); NEUTROPHILS PERCENT AUTO 48 % (41-73); Platelet Count 414 K/mm3 (150-400); RDW Coefficient Variation 15.3 % (11.7-14.2); RDW Standard Deviation 52.7 fL (35.1-46.3); Red Blood Cell Count 4.27 M/mm3 (3.80-5.20); White Blood Cell Count 9.06 K/mm3 (4.00-11.30)
[2020-05-15 18:29] LABS: Alanine Aminotransfer (ALT/SGP 15 U/L (12-78); Albumin/Globulin Ratio 0.6 (0.8-1.8); Alk Phos 81 U/L (50-136); Anion Gap 5 mmol/L (6-16); Aspartate Aminotrans (AST/SGOT 13 U/L (12-37); Bilirubin, Total 0.2 mg/dL (0.1-1.0); Blood Urea Nitrogen 17 mg/dL (8-24); Bun/Creatinine Ratio 15.9 (12.0-20.0); CO2, Blood 22 mmol/L (21-32); Chloride, Blood 108 mmol/L (98-108); Creatinine, Blood 1.07 mg/dL (0.40-1.00); Globulin, Blood 4.7 g/dL (2.2-4.0); Glomerular Filtration Rate >60 (60-); Glucose, Blood 111 mg/dL (70-99); Potassium, Blood 4.4 mmol/L (3.5-5.5); Sodium, Blood 135 mmol/L (136-145); Total Protein, Blood 7.7 g/dL (6.4-8.2)
== END 2020-05-15 20:30 | disposition home or self-care (01) ==
LOC: ER 17:05
PROVIDERS: Physician Assistant
DX: S93.401A Sprain of unspecified ligament of right ankle, initial encounter (principal); F17.210 Nicotine dependence, cigarettes, uncomplicated; Z88.6 Allergy status to analgesic agent; Z88.5 Allergy status to narcotic agent; Z88.8 Allergy status to other drugs, medicaments and biological substances; Z79.899 Other long term (current) drug therapy; W17.2XXA Fall into hole, initial encounter
CPT/HCPCS: 73600; 80053; 85025; 96360; 99283-25; J7030

== ENCOUNTER 2020-07-02 22:53 | Observation (INO) | payer OTHER ==
[~2020-07-02] VITALS: Ht 167.6 cm; Wt 93.0 kg
[2020-07-02 23:43] LABS: BASOPHILS ABSOLUTE AUTO 0.05 K/mm3 (0.00-0.23); BASOPHILS PERCENT AUTO 0 % (0-2); EOSINOPHILS ABSOLUTE AUTO 0.03 K/mm3 (0.00-0.68); EOSINOPHILS PERCENT AUTO 0 % (0-6); Hematocrit 35.5 % (33.0-51.0); Hemoglobin 11.8 g/dL (11.5-16.0); IMMATURE GRAN ABSOLUTE AUTO 0.09 K/mm3 (0.00-0.10); IMMATURE GRAN PERCENT AUTO 1 % (0-1); LYMPHOCYTES ABSOLUTE AUTO 2.54 K/mm3 (0.84-5.20); LYMPHOCYTES PERCENT AUTO 18 % (21-46); MONOCYTES ABSOLUTE AUTO 1.21 K/mm3 (0.16-1.47); MONOCYTES PERCENT AUTO 9 % (4-13); Mean Corpuscular HGB 31.1 pg (26.0-34.0); Mean Corpuscular HGB Conc 33.2 g/dL (31.5-36.5); Mean Corpuscular Volume 93 fL (80-100); NEUTROPHILS ABSOLUTE AUTO 10.07 K/mm3 (1.96-9.15); NEUTROPHILS PERCENT AUTO 72 % (41-73); NRBC ABSOLUTE 0.02 K/mm3 (0.00-0.02); NRBC Auto 0.1 /100 WBC (0.0-0.2); Platelet Count 387 K/mm3 (150-400); RDW Coefficient Variation 17.7 % (11.7-14.2); White Blood Cell Count 13.99 K/mm3 (4.00-11.30)
[2020-07-02] MEDS ORDERED: Prinivil10 MG PO (23:46)
[2020-07-03 00:02] LABS: Albumin, Blood 2.2 g/dL (3.4-5.0); Albumin/Globulin Ratio 0.5 (0.8-1.8); Bilirubin, Total 0.4 mg/dL (0.1-1.0); Bun/Creatinine Ratio 11.8 (12.0-20.0); Calcium, Blood 8.9 mg/dL (8.5-10.1); Creatinine, Blood 4.83 mg/dL (0.40-1.00); Globulin, Blood 4.7 g/dL (2.2-4.0); Potassium, Blood 5.5 mmol/L (3.5-5.5); Total Protein, Blood 6.9 g/dL (6.4-8.2)
[2020-07-03 01:52] LABS: Source, Urine Clean Catch
[2020-07-03 01:54] LABS: Appearance, Urine Clear (Clear); Bilirubin, Urine 2+ (Neg); Blood, Urine 3+ (Neg); Color, Urine Amber (P-Yellow); Glucose Qualitative, Urine Neg (Neg); Ketones, Urine Neg (Neg); Leukocyte Esterase, Urine 1+ (Neg); Nitrite, Urine Neg (Neg); Protein, Urine 2+ (Neg); Specific Gravity, Urine 1.015 (1.003-1.022); Urobilinogen, Urine NORM (Normal)
[2020-07-03 01:59] LABS: Red Blood Cells, Urine 0-2 /hpf (0-2)
[2020-07-03 02:00] LABS: Amorphous Light (0-Heavy); Bacteria Mod /hpf; Mucus Light (0-Heavy); Squamous Epithelial Cells Few /hpf (Few)
[2020-07-03] MEDS ORDERED: PROM12.5S PR (03:17)
[2020-07-03 04:05] LABS: U Amphetamine Screen Not Detected; U Barbituate Screen Not Detected; U Benzodiazapine Screen DETECTED; U Buprenorphine Screen DETECTED; U Cannabinoids Screen Not Detected; U Cocaine Screen Not Detected; U Methadone Screen Not Detected; U Methamphetamine Screen Not Detected; U Opiates Screen Not Detected; U Oxycodone Screen Not Detected; U Phencyclidine Screen Not Detected; U Propoxyphene Screen Not Detected
--- NOTE | 2020-07-03 06:10 | NUR ---
END OF SHIFT SUMMARY: PATIENT A/O X4 ON ADMISSION BUT VERY LETHARGIC. PATIENT FALLING ASLEEP DURING ADMISSION QUESIONS/ASSESSMENT. PATIENT TACHY IN 150S WHEN ARRIVING TO UNIT. PATIENT HAS BEEN RESTING IN 120-160S. BP STABLE BUT LABILE. FLUIDS ORDERED AND STARTED. PATIENT REPORTS HAVING ABD. PAIN BUT DOES KNOW IF SHE NEEDS MEDICATION AT THIS TIME. PATIENT USED BEDSIDE CAMMODE AFTER EXPRESSING URGENT NEEDS TO URINATE AFTER FAILED ATTEMPT AT USING THE BEDPAN. PATIENT ANXIOUS BUT COOPERATIVE
[2020-07-03 09:39] LABS: BASOPHILS ABSOLUTE AUTO 0.03 K/mm3 (0.00-0.23); BASOPHILS PERCENT AUTO 0 % (0-2); Hematocrit 35.3 % (33.0-51.0); Hemoglobin 11.6 g/dL (11.5-16.0); LYMPHOCYTES ABSOLUTE AUTO 1.97 K/mm3 (0.84-5.20); LYMPHOCYTES PERCENT AUTO 22 % (21-46); MONOCYTES ABSOLUTE AUTO 0.55 K/mm3 (0.16-1.47); MONOCYTES PERCENT AUTO 6 % (4-13); Mean Corpuscular HGB 31.3 pg (26.0-34.0); Mean Corpuscular HGB Conc 32.9 g/dL (31.5-36.5); Mean Corpuscular Volume 95 fL (80-100); Mean Platelet Volume 9.7 fL (9.1-12.4); Platelet Count 331 K/mm3 (150-400); RDW Standard Deviation 62.8 fL (35.1-46.3); Red Blood Cell Count 3.71 M/mm3 (3.80-5.20); White Blood Cell Count 8.82 K/mm3 (4.00-11.30)
[2020-07-03 09:42] LABS: EOSINOPHILS ABSOLUTE AUTO 0.02 K/mm3 (0.00-0.68); EOSINOPHILS PERCENT AUTO 0 % (0-6); IMMATURE GRAN ABSOLUTE AUTO 0.04 K/mm3 (0.00-0.10); IMMATURE GRAN PERCENT AUTO 1 % (0-1); NEUTROPHILS ABSOLUTE AUTO 6.21 K/mm3 (1.96-9.15); NEUTROPHILS PERCENT AUTO 71 % (41-73)
[2020-07-03 10:04] LABS: Alanine Aminotransfer (ALT/SGP 12 U/L (12-78); Albumin, Blood 2.1 g/dL (3.4-5.0); Albumin/Globulin Ratio 0.5 (0.8-1.8); Alk Phos 205 U/L (50-136); Anion Gap 10 mmol/L (6-16); Aspartate Aminotrans (AST/SGOT 22 U/L (12-37); Bilirubin, Total 0.5 mg/dL (0.1-1.0); Blood Urea Nitrogen 43 mg/dL (8-24); Bun/Creatinine Ratio 17.5 (12.0-20.0); CO2, Blood 18 mmol/L (21-32); Calcium, Blood 8.2 mg/dL (8.5-10.1); Chloride, Blood 110 mmol/L (98-108); Creatinine, Blood 2.46 mg/dL (0.40-1.00); Globulin, Blood 4.4 g/dL (2.2-4.0); Glomerular Filtration Rate 23 (60-); Glucose, Blood 58 mg/dL (70-99); Phosphorus, Blood 4.1 mg/dL (2.5-4.9); Potassium, Blood 5.2 mmol/L (3.5-5.5); Total Protein, Blood 6.5 g/dL (6.4-8.2)
[2020-07-03 10:05] LABS: Sodium, Blood 138 mmol/L (136-145)
--- NOTE | 2020-07-03 11:40 | NUR ---
UPDATE PT UP TO [facility] TO ATTEMPT TO VOID. PT STATES SHE CANNOT VOID AND BECOMES UPSET. BLADDER SCAN SHOWS 650. ORDERS FOR STRAIGHT CATH OBTAINED. STRAIGHT CATH INSERTED WITH STERILE TECHNIQUE AND AFTER DRAINING APPROXIMATELY 250ML PT COMPLAINS OF PAIN AND INSISTS THE CATHETER TO BE REMOVED. CATHETER REMOVED. PT UP TO COMMODE AGAIN TO TRY TO VOID. PT ABLE TO VOID 700ML. AFTER PT TRANSFERS BACK TO BED SHE BECOMES NAUSEATED AND IS DRY HEAVING. PT MEDICATED PER EMAR. DR. REY NOTIFIED OF INCREASE IN HR TO 180. ORDERS FOR ATIVAN OBTAINED AND PT MEDICATED. WILL CONTINUE TO MONITOR CLOSELY. BED ALARM IS ON.
--- NOTE | 2020-07-03 13:33 | NUR ---
UPDATE CBG WITH MORNING LABS WAS 58. PT ENCOURAGED TO INCREASE ORAL INTAKE. PT ABLE TO TAKE SMALL SIPS OF JUICE, BUT STATES IT MAKES HER NAUSEATED. CBG RECHECKED AND IS 63. DR. RIVERA NOTIFIED. WILL CONTINUE TO MONITOR CLOSELY.
--- NOTE | 2020-07-03 16:04 | NUR ---
UPDATE BED ASSIGNMENT FOR PCU 6 OBTAINED. REPORT GIVEN TO NEYMAR SPRINGER. PT'S FATHER CALLED AND NOTIFIED OF CHANGE PT REQUESTED. PT TAKEN TO BY WITH ALL OF HER BELONGINGS.
--- NOTE | 2020-07-03 16:11 | NUR ---
ICU TRANSFER. REPORT FROM ALICIA. Zahraa/Zahraa/OX4, TRANSFERRED INDEPENDANTLY FROM WHEEL CHAIR TO BED. HR NOTED TO BE ST 150'S. HX OF SAME IN ICU. PER ALICIA ATIVAN AND FLUIDS ORDERED FOR HEART RATE. PT APPEARS ANXIOUS. WILL CONTINUE TO MONITOR.
--- NOTE | 2020-07-03 16:35 | NUR ---
UPDATE; DR. RIVERA NOTIFIED OF HEART SUSTAINING IN 170'S. ORDERS BEING PLACED BY DR. RIVERA.
[2020-07-04 04:15] LABS: Albumin, Blood 1.8 g/dL (3.4-5.0); Anion Gap 5 mmol/L (6-16); Blood Urea Nitrogen 34 mg/dL (8-24); Bun/Creatinine Ratio 16.6 (12.0-20.0); CO2, Blood 20 mmol/L (21-32); Calcium, Blood 7.3 mg/dL (8.5-10.1); Chloride, Blood 113 mmol/L (98-108); Creatinine, Blood 2.05 mg/dL (0.40-1.00); Glomerular Filtration Rate 29 (60-); Glucose, Blood 78 mg/dL (70-99); Phosphorus, Blood 3.2 mg/dL (2.5-4.9); Potassium, Blood 5.5 mmol/L (3.5-5.5); Sodium, Blood 138 mmol/L (136-145)
--- NOTE | 2020-07-04 04:33 | NUR ---
pt update pt up to bathroom beginning of shift to attempt to void unsuccessfully. bladder scan performed resulting in 461 mls. Educated pt on risks of urinary rentention and spoke about placing a ortiz per orders. pt refused Ortiz, stated being straight cathed the previous day "hurt". Pt requested to call dad. After phone call, pt stated dad recommended getting the Ortiz but pt still refused.
--- NOTE | 2020-07-04 05:52 | NUR ---
LOW BP PT HAS HAD SOFT BP THIS SHIFT. CALL PLACED TO WATER MAIN INSPECTOR AMINTA AT APPROX 2330. WATER MAIN INSPECTOR AMINTA WITH ORDERS FOR 1L NS BOLUS. T/O SHIFT BP REMAINS SOFT. CALL PLACED TO MD CLINTON. MD CLINTON W/ ORDERS FOR ALBUMIN (LAB RESULTS 1.8 THIS AM), 500 ML BOLUS NS NOW, AND 500 ML BOLUS NS IN AN HOUR IF NO BP IMPROVEMENT. PT ASYMPTOMATIC AT THIS TIME.
--- NOTE | 2020-07-04 05:54 | NUR ---
SHIFT SUMMARY PT ALERT, ORIENTED TO SELF, FOLLOWING DIRECTIONS, PERSON, PLACE. SOME CONFUSION, PT STATES, "I WAS SUPPOSED TO GET OUT OF HERE TODAY SO I CAN WATCH MY GRANDKID GRADUATE." PT IRRITABLE. SP02>90% ON RA. TELEMETRY READS SINUS RHYTHM, HR 60'S. BP HAS BEEN SOFT THIS SHIFT, SEE PREVIOUS NOTE. PTS HANDS/FINGERS SWOLLEN, REMOVED PTS RINGS W/ SOAP/WATER/LUBE. RINGS PLACED IN SEALED CUP AND PLACED IN PT'S BELONGINGS BAG. PT C/O OF VAGINAL PAIN, ICE PACK TO AREA. PT UNABLE TO VOID THIS SHIFT BUT CONTINUES TO REFUSE PAYNE, SEE PREVIOUS NOTE. NS INFUSING PER EMAR. ALBUMIN INFUSED PER EMAR. CALL LIGHT IN REACH. WILL GIVE REPORT TO ONCOMING NURSE.
--- NOTE | 2020-07-04 08:00 | NUR ---
ASSUMED CARE AT 0700, REPORT FROM RACHEAL TREVIÑO. NOC SHIFT RN KAMILA CONCERNED WITH CONTINUED LOW BLOOD PRESSURE AND LETHERAGY DURING NIGHT. KAMILA REPORTS FINDING A PILL ON FLOOR BY PT BED. UNKNOWN IF IT WAS A MEDICATION GIVEN PREVIOUSLY. PT DENIED KNOWLEDGE OF PILL. DISPOSED OF BY RN. DR. REY NOTIFIED OF BLOOD PRESSURE AND MAP. DR. REY AT BEDSIDE. FLUID BOLUS CONTINUED. PT APPEARS LETHARGIC BUT ORIENTED APPROPRIATLY WHEN WOKEN. UNABLE TO URINATE IN THE LAST SEVERAL HOURS. ELMER DISCUSSED, PT AGREES. QUESTIONED PT IF SHE HAD ANY HOME MEDICATIONS WITH HER. SHE STATES NO. EXPLAINED CONCERNED WITH UNEXPLAINABLE SOMMULENCE. RETURNS TO SLEEP. WILL CONTINUE TO MONITOR.
[2020-07-04] MEDS ORDERED: BUPRENORPHINE HC8 MG SL (08:36)
--- NOTE | 2020-07-04 09:45 | NUR ---
PT FOUND TO BE SLUMMPED OVER IN BED WITH CHIN TO CHEST SOMMULENT WITH SNORING RESPIRATIONS. AWAKES TO VERBAL STIMULI. BLOOD PRESSURE LOW. PER SPOOL CARRIER PT ASKED FOR HER PURSE APPROX 30 MINS AGO WHICH WAS GIVEN. PURSE REMAINS ON BEDSIDE TABLE. PURSE OPENED DUE TO SUSPICION OF HOME MEDICATION USE. LARGE BOTTLE OF CLONIDINE FOUND WITH A PT NAME OF "LARISA BLACKMON". PERSCRIBING DOCTOR IS A TELEMED DOCTOR FROM A [facility]. MULTIPLE CLONIDINE RX'S FILLED AT MULTIPLE PHARMACYS IN AREA PER PT PHARMACY MED REC. TELEMED OFFICE NOTIFIED BY THIS RN PT POSSIBLY USING THE ALIJENNIFER BLACKMON. DR. REY NOTIFIED AND IS AT BEDSIDE TO ASSESS PT. CONTINUOUS BIOX IN PLACE WITH SATS MAINTAINING 96%. WILL CONTINUE TO PROVIDE SUPPORTIVE CARE AT MONITOR VSS. PURSE REMOVED FROM ROOM AND PLACED IN LOCKED NURSE LENS ASSORTER. WILL GIVE PURSE TO FATHER WHEN HE ARRIVES AT VISITING HOURS.
--- NOTE | 2020-07-04 10:38 | NUR ---
PT'S PRIMARY RN NEYMAR REPORTED A BOTTLE OF PRESCRIPTION MEDICATION LOCATED IN PT'S PURSE IN THE PT'S REACH WITHIN HER ROOM. THE PRESCRIPTION BOTTLE CONTAINED TWO DIFFERENT TABLETS OF MEDICATION. MOST TABLETS ARE ROUND, ORANGE AND LABELED WITH "R" ON ONE SIDE AND "129" ON THE OTHER, AND WAS IDENIFIED CLONIDINE 0.3MG. THE OTHER TABLETS ARE WHITE, OVAL AND LABELED WITH "U" ON ONE SIDE AND "137" ON THE OTHER SIDE, AND WAS IDENTIFIED CLONIDINE 0.3MG. THE NAME OF THE PATIENT ON THE PRESCRIPTION BOTTLE IS "MORRIS BLACKMON" [id number] PRESCRIBED BY DR BULMARO PARKS AND FILLED AT [facility]. SEE FURTHER NOTES FROM PRIMARY RACHEAL BLACKMON.
--- NOTE | 2020-07-04 16:20 | NUR ---
PURSE WITH PT'S HOME MEDS OF CLONIDINE SENT HOME WITH FATHER.
--- NOTE | 2020-07-04 17:52 | NUR ---
SHIFT SUMMARY; A/A/OX4. SEE PREVIOUS NOTES REGARDING CLONIDINE ABUSE. PT STATES SHE HAS BEEN OVERMEDICATING HERSELF AT HOME WITH CLONIDINE. STATES IT IS THE ONLY THING THAT HELPS WITH ANXIETY. SHE REPORTS TAKING 0.3MG TABLETS 3 AT A TIME SEVERAL TIMES A DAY. STATES LAST NIGHT SHE TOOK 3 SO SHE COULD SLEEP LAST NIGHT IN THE HOSPITAL. UNCLEAR ON HOW MANY PT TOOK TODAY FROM PERSONAL PERSCRIPTION THAT WAS IN HER PURSE. PURSE REMOVED AT APPROX 10AM FROM ROOM. BLOOD PRESSURE STEADILY INCREASED THROUGHOUT DAY TO NORMAL LIMITS. HR 60'S IN SINUS RYTHYM. PAYNE CATH PLACED TODAY FOR URINE RETENTION, DRAINING LOVE URINE. TOLERATING PO FLUIDS AND FOODS, NS INFUSING AT 150ML/HR. PRN ORDERS PLACED FOR REBOUND HYPERTENSION BY DR. REY. WILL CONTINUE TO TREAT AND MONITOR UNTIL CHANGE OF SHIFT.
[2020-07-05 04:31] LABS: Albumin, Blood 2.5 g/dL (3.4-5.0); Anion Gap 4 mmol/L (6-16); Blood Urea Nitrogen 26 mg/dL (8-24); Bun/Creatinine Ratio 19.4 (12.0-20.0); CO2, Blood 19 mmol/L (21-32); Calcium, Blood 7.8 mg/dL (8.5-10.1); Chloride, Blood 118 mmol/L (98-108); Creatinine, Blood 1.34 mg/dL (0.40-1.00); Glomerular Filtration Rate 47 (60-); Glucose, Blood 65 mg/dL (70-99); Phosphorus, Blood 3.4 mg/dL (2.5-4.9); Sodium, Blood 141 mmol/L (136-145)
--- NOTE | 2020-07-05 06:09 | NUR ---
SHIFT SUMMARY NO ACUTE CHANGES THIS SHIFT. PT A&OX4. SP02>90% ON RA. TELEMTRY READS SR, HR 70'S. BP STABLE. PT DENIES PAIN. PT C/O OF ANXIETY. MEDICATED W/ ATIVAN PER EMAR X1. PT C/O OF NAUSEA, MEDICATED W/ ZOFRAN X1 AND PHENERGAN X1 PER EMAR. CHANGED POWERGLIDE DRESSING. PAYNE CATHETER DRAINING YELLOW URINE TO GRAVITY. PT REPOSITIONS SELF. NS INFUSING PER EMAR. CALL LIGHT IN REACH. WILL GIVE REPORT TO ONCOMING NURSE.
[2020-07-05] MEDS ORDERED: NEURONTIN600 MG PO (15:23)
[2020-07-05] MEDS ORDERED: Zithromax500 MG PO (15:25)
[2020-07-05] MEDS ORDERED: CEFD300 PO (15:26)
[2020-07-05] MEDS ORDERED: HYDHCL25 PO (15:27)
== END 2020-07-05 15:53 | disposition home or self-care (01) ==
LOC: ER 22:53 → ICUW 22:54 → ER 07-03 01:55 → ICUW 07-03 01:55 → ICUE 07-03 01:55 → ICUW 07-03 02:59 → PCU 07-03 16:00 → ICUE 07-03 16:00 → PCU 07-03 16:01
PROVIDERS: Family Medicine; Student in an Organized Health Care Education/Training Program; ADMIT Internal Medicine
DX: A41.9 Sepsis, unspecified organism (principal); J18.9 Pneumonia, unspecified organism; R65.20 Severe sepsis without septic shock; N17.9 Acute kidney failure, unspecified; F17.210 Nicotine dependence, cigarettes, uncomplicated; I95.2 Hypotension due to drugs; T46.5X5A Adverse effect of other antihypertensive drugs, initial encounter; F11.21 Opioid dependence, in remission; E66.9 Obesity, unspecified; E86.0 Dehydration; E87.1 Hypo-osmolality and hyponatremia; E88.09 Other disorders of plasma-protein metabolism, not elsewhere classified; G89.4 Chronic pain syndrome; I10 Essential (primary) hypertension; F41.8 Other specified anxiety disorders; J45.909 Unspecified asthma, uncomplicated; Z88.6 Allergy status to analgesic agent; Z88.5 Allergy status to narcotic agent; Z88.8 Allergy status to other drugs, medicaments and biological substances
CPT/HCPCS: 36415; 51701; 51702; 71045; 76770; 80053; 80069; 81001; 82947; 83605; 83690; 84100; 84145; 85025; 87040; 87086; 93005; 93010; 96361; 96361-59; 96365; 96366; 96367; 96372; 96374-59; 96375; 96376; 99285-25; A9270; C1751; G0378; J0456; J0696; J1650; J2060; J2405; J2550; J2765; J7030; J7040; J7050; J7120; P9046

== ENCOUNTER 2020-08-31 09:33 | Emergency (ER) | payer OTHER ==
[~2020-08-31] VITALS: Ht 167.6 cm; Wt 91.2 kg
[~2020-08-31 09:33] MED LIST changes: +HYDHCL25 PO; +NEURONTIN600 MG PO; +PROM12.5S PR; +Prinivil10 MG PO; +Zithromax500 MG PO
[2020-08-31 10:48] LABS: BASOPHILS ABSOLUTE AUTO 0.03 K/mm3 (0.00-0.23); BASOPHILS PERCENT AUTO 0 % (0-2); EOSINOPHILS ABSOLUTE AUTO 0.06 K/mm3 (0.00-0.68); EOSINOPHILS PERCENT AUTO 1 % (0-6); Hematocrit 40.3 % (33.0-51.0); Hemoglobin 13.5 g/dL (11.5-16.0); IMMATURE GRAN ABSOLUTE AUTO 0.04 K/mm3 (0.00-0.10); IMMATURE GRAN PERCENT AUTO 0 % (0-1); LYMPHOCYTES ABSOLUTE AUTO 2.17 K/mm3 (0.84-5.20); LYMPHOCYTES PERCENT AUTO 18 % (21-46); MONOCYTES ABSOLUTE AUTO 0.52 K/mm3 (0.16-1.47); MONOCYTES PERCENT AUTO 4 % (4-13); Mean Corpuscular HGB 31.6 pg (26.0-34.0); Mean Corpuscular HGB Conc 33.5 g/dL (31.5-36.5); Mean Corpuscular Volume 94 fL (80-100); NEUTROPHILS ABSOLUTE AUTO 9.09 K/mm3 (1.96-9.15); NEUTROPHILS PERCENT AUTO 76 % (41-73); Platelet Count 523 K/mm3 (150-400); RDW Coefficient Variation 16.7 % (11.7-14.2); RDW Standard Deviation 58.1 fL (35.1-46.3); Red Blood Cell Count 4.27 M/mm3 (3.80-5.20); White Blood Cell Count 11.91 K/mm3 (4.00-11.30)
[2020-08-31 11:03] LABS: Alanine Aminotransfer (ALT/SGP 16 U/L (12-78); Albumin, Blood 3.4 g/dL (3.4-5.0); Albumin/Globulin Ratio 0.7 (0.8-1.8); Alk Phos 84 U/L (50-136); Anion Gap 7 mmol/L (6-16); Aspartate Aminotrans (AST/SGOT 27 U/L (12-37); Bilirubin, Total 0.3 mg/dL (0.1-1.0); Blood Urea Nitrogen 13 mg/dL (8-24); Bun/Creatinine Ratio 15.8 (12.0-20.0); CO2, Blood 24 mmol/L (21-32); Calcium, Blood 9.7 mg/dL (8.5-10.1); Chloride, Blood 105 mmol/L (98-108); Creatinine, Blood 0.83 mg/dL (0.40-1.00); Glomerular Filtration Rate >60 (60-); Glucose, Blood 110 mg/dL (70-99); Potassium, Blood 4.1 mmol/L (3.5-5.5); Sodium, Blood 136 mmol/L (136-145); Total Protein, Blood 8.4 g/dL (6.4-8.2)
[2020-08-31] MEDS ORDERED: GABA100 PO (11:12)
[2020-08-31] MEDS ORDERED: PROM25 PO (12:30)
[2020-08-31 12:48] LABS: Source, Urine Clean Catch
[2020-08-31 13:32] LABS: Appearance, Urine Clear (Clear); Blood, Urine 1+ (Neg); Color, Urine Yellow (P-Yellow); Glucose Qualitative, Urine Neg (Neg); Ketones, Urine Neg (Neg); Leukocyte Esterase, Urine 1+ (Neg); Nitrite, Urine Neg (Neg); Protein, Urine 2+ (Neg); Urobilinogen, Urine NORM (Normal)
[2020-08-31 14:04] LABS: Bilirubin, Urine 1+ (Neg)
[2020-08-31 14:07] LABS: Bacteria Many /hpf; Mucus Mod (0-Heavy); Squamous Epithelial Cells Many /hpf (Few)
[2020-08-31 14:08] LABS: Calcium Oxalate Crystals Many /hpf
== END 2020-08-31 13:00 | disposition home or self-care (01) ==
LOC: ER 09:33
PROVIDERS: Emergency Medicine
DX: R11.15 Cyclical vomiting syndrome unrelated to migraine (principal); F17.200 Nicotine dependence, unspecified, uncomplicated; Z88.6 Allergy status to analgesic agent; Z88.5 Allergy status to narcotic agent; Z79.899 Other long term (current) drug therapy
CPT/HCPCS: 36415; 80053; 81001; 81025; 83690; 85025; 87086; 96361; 96374; 96375; 99283-25; J1200; J1630; J7030

== ENCOUNTER 2020-10-06 00:37 | Day surgery (SDC) | payer OTHER ==
[~2020-10-06 00:37] MED LIST changes: -SUBOXONE 8 MG-1 EACH SL
== END 2020-10-06 22:46 | disposition home or self-care (01) ==
LOC: WOUND 00:37
DX: L89.152 Pressure ulcer of sacral region, stage 2 (principal); I10 Essential (primary) hypertension; J45.909 Unspecified asthma, uncomplicated; F17.210 Nicotine dependence, cigarettes, uncomplicated; Z88.5 Allergy status to narcotic agent; Z88.6 Allergy status to analgesic agent
CPT/HCPCS: G0463

== ENCOUNTER 2020-10-15 01:24 | Day surgery (SDC) | payer OTHER | END 2020-10-15 23:07 | disposition home or self-care (01) | LOC: WOUND 01:24 | DX: L89.159 Pressure ulcer of sacral region, unspecified stage (principal); J45.909 Unspecified asthma, uncomplicated; I10 Essential (primary) hypertension; Z88.5 Allergy status to narcotic agent | CPT/HCPCS: G0463 ==

== ENCOUNTER 2020-10-20 16:59 | Inpatient (IN) | payer OTHER ==
[~2020-10-20] VITALS: Ht 167.6 cm; Wt 88.3 kg
[2020-10-20 17:30] LABS: Calcium, Ionized (POC) 1.05 mmol/L (1.10-1.46); Chloride (POC) 102 mmol/L (98-108); Creatinine (POC) 4.8 mg/dL (0.6-1.0); Glucose (ISTAT POC) 68 mg/dL (70-99); Hemoglobin (POC) 12.9 g/dL (12.0-16.0); Potassium (POC) 5.3 mmol/L (3.5-5.5); Sodium (POC) 127 mmol/L (135-148); Total CO2 (POC) 13 mmol/L (21-32)
[2020-10-20 17:47] LABS: Hematocrit 38.1 % (33.0-51.0); Hemoglobin 12.6 g/dL (11.5-16.0); Mean Corpuscular HGB 31.4 pg (26.0-34.0); Mean Corpuscular HGB Conc 33.1 g/dL (31.5-36.5); Mean Corpuscular Volume 95 fL (80-100); Mean Platelet Volume 9.8 fL (9.1-12.4); Platelet Count 419 K/mm3 (150-400); RDW Standard Deviation 56.3 fL (35.1-46.3); Red Blood Cell Count 4.01 M/mm3 (3.80-5.20); White Blood Cell Count 16.89 K/mm3 (4.00-11.30)
[2020-10-20 18:12] LABS: BAND PERCENT MAN 7 % (0-8); BASOPHILS PERCENT MAN 0 % (0-2); EOSINOPHILS PERCENT MAN 0 % (0-6); LYMPHOCYTES ABSOLUTE MAN 1.18 K/mm3 (0.84-5.20); LYMPHOCYTES PERCENT MAN 7 % (21-46); MONOCYTES ABSOLUTE MAN 1.18 K/mm3 (0.16-1.47); MONOCYTES PERCENT MAN 7 % (4-13); NEUTROPHILS ABSOLUTE MAN 14.52 K/mm3 (1.96-9.15); SEG NEUTROPHILS PERCENT MAN 79 % (41-73); TOTAL CELLS COUNTED 100
[2020-10-20] MEDS ORDERED: PROM12.5S PR (18:16)
[2020-10-20] MEDS ORDERED: BUPRENORPHINE HC8 MG SL (18:16)
[2020-10-20] MEDS ORDERED: PROM25 PO (18:18)
[2020-10-20 18:26] LABS: Magnesium, Blood 2.5 mg/dL (1.6-2.4)
[2020-10-20 18:31] LABS: Albumin, Blood 2.5 g/dL (3.4-5.0); Albumin/Globulin Ratio 0.5 (0.8-1.8); Bilirubin, Total 0.5 mg/dL (0.1-1.0); Bun/Creatinine Ratio 14.5 (12.0-20.0); Calcium, Blood 9.2 mg/dL (8.5-10.1); Creatinine, Blood 4.01 mg/dL (0.40-1.00); Globulin, Blood 4.7 g/dL (2.2-4.0); Potassium, Blood 5.5 mmol/L (3.5-5.5); Total Protein, Blood 7.2 g/dL (6.4-8.2)
[2020-10-20 18:53] LABS: Creatine Kinase MB 8.3 ng/mL (0.0-3.6); Creatine Kinase MB Index 0.9 (0.0-4.0)
[2020-10-20 19:27] LABS: Base Excess Venous -11.5 mmol/L; Bicarbonate Venous 16.3 mmol/L (24.0-30.0); PCO2 Venous 30.2 mmHg (38-42); PO2 Venous 102 mmHg (38-42)
[2020-10-20 21:23] LABS: Source, Urine Clean Catch
[2020-10-20 21:27] LABS: Appearance, Urine Clear (Clear); Bilirubin, Urine Neg (Neg); Blood, Urine 3+ (Neg); Color, Urine Yellow (P-Yellow); Glucose Qualitative, Urine Neg (Neg); Ketones, Urine Neg (Neg); Leukocyte Esterase, Urine Neg (Neg); Nitrite, Urine Neg (Neg); Protein, Urine 1+ (Neg); Urobilinogen, Urine NORM (Normal)
[2020-10-20 21:36] LABS: Bacteria Few /hpf; Red Blood Cells, Urine 0-2 /hpf (0-2); Squamous Epithelial Cells Few /hpf (Few); White Blood Cells, Urine 0-2 /hpf (0-5)
[2020-10-20 22:52] LABS: C DIFFICILE DNA NEGATIVE (Negative)
--- NOTE | 2020-10-20 23:00 | NUR ---
PT ADMITTED FROM ER AT THIS TIME FOR DARREN, TACHYCARDIA AND N/V/D. PT TRANSFERED INTO HOSPITAL BED USING SLIDER SHEET. PT DROWSY UPON ARRIVAL. WAKING BREIFLY BUT WILL QUICKLY FALL BACK ASLEEP. SINUS TACH AT 170 PER TELE. ALL OTHER VS WNL. IVF INFUSING PER EMAR.
--- NOTE | 2020-10-21 02:33 | NUR ---
DR. ROA NOTIFIED OF HR IN 160'S-170 DESPITE AMOUNT OF IVF ADMINISTERED. NEW ORDER FOR A TOX SCREEN.
[2020-10-21 04:21] LABS: U Amphetamine Screen Not Detected; U Barbituate Screen Not Detected; U Benzodiazapine Screen Not Detected; U Buprenorphine Screen DETECTED; U Cannabinoids Screen Not Detected; U Cocaine Screen Not Detected; U Methadone Screen Not Detected; U Methamphetamine Screen Not Detected; U Opiates Screen Not Detected; U Oxycodone Screen Not Detected; U Phencyclidine Screen Not Detected; U Propoxyphene Screen Not Detected
[2020-10-21 04:59] LABS: Bun/Creatinine Ratio 21.6 (12.0-20.0); Calcium, Blood 7.8 mg/dL (8.5-10.1); Creatinine, Blood 1.71 mg/dL (0.40-1.00)
--- NOTE | 2020-10-21 05:28 | NUR ---
HR SUSTAINING IN 180'S. PT DENIES CP. DR. ROA UPDATED ON PT CONDITION. NEW ORDER FOR EKG AND TO GIVE METOPROLOL IV 5MG. MEDICATION ADMIISTERED. HR NOW 124.
--- NOTE | 2020-10-21 06:12 | NUR ---
HR INCREASING BACK UP TO THE 150'S. DR. ROA NOTIFIED. NEW ORDER FOR ORAL METOPROLOL TO START NOW.
--- NOTE | 2020-10-21 07:37 | NUR ---
pt resting wakes to verbal stimuli stated she feels weak and anxious no cp at this time pt lips are dry abd soft hypo bt'sx4 pt oral care provided pt denies nausea at this time req some ice water
--- NOTE | 2020-10-21 10:32 | NUR ---
dr farrell by to see pt
--- NOTE | 2020-10-21 11:15 | NUR ---
ortzi cath removed per dr farrell order pt ivf dec to 125 ml hr will do cortisol test also
--- NOTE | 2020-10-21 13:37 | NUR ---
pt had a loose bm and voided
--- NOTE | 2020-10-21 16:29 | NUR ---
dr farrell called per pt req for nicotine patch also pt stated she takes neurontin 300 mg po tid was not on her home med list
[2020-10-21] MEDS ORDERED: GABA300 PO (16:31)
--- NOTE | 2020-10-21 18:07 | NUR ---
pt took bites only offered popsicle or broth pt declined
[2020-10-22 05:49] LABS: Base Excess Venous -7.2 mmol/L; Bicarbonate Venous 18.7 mmol/L (24.0-30.0); PCO2 Venous 39.7 mmHg (38-42); PO2 Venous 42.8 mmHg (38-42)
[2020-10-22 05:56] LABS: Hematocrit 30.7 % (33.0-51.0); Hemoglobin 10.1 g/dL (11.5-16.0); Mean Corpuscular HGB 32.1 pg (26.0-34.0); Mean Corpuscular HGB Conc 32.9 g/dL (31.5-36.5); Mean Corpuscular Volume 98 fL (80-100); Mean Platelet Volume 9.4 fL (9.1-12.4); Platelet Count 370 K/mm3 (150-400); RDW Coefficient Variation 16.2 % (11.7-14.2); Red Blood Cell Count 3.15 M/mm3 (3.80-5.20); White Blood Cell Count 12.02 K/mm3 (4.00-11.30)
[2020-10-22 06:22] LABS: BAND PERCENT MAN 14 % (0-8); BASOPHILS PERCENT MAN 0 % (0-2); EOSINOPHILS PERCENT MAN 0 % (0-6); LYMPHOCYTES ABSOLUTE MAN 1.32 K/mm3 (0.84-5.20); LYMPHOCYTES PERCENT MAN 11 % (21-46); MONOCYTES ABSOLUTE MAN 1.08 K/mm3 (0.16-1.47); MONOCYTES PERCENT MAN 9 % (4-13); NEUTROPHILS ABSOLUTE MAN 9.61 K/mm3 (1.96-9.15); SEG NEUTROPHILS PERCENT MAN 66 % (41-73); TOTAL CELLS COUNTED 100
--- NOTE | 2020-10-22 06:28 | NUR ---
SHIFT SUMMARY A/O X4, VSS, TOLERATING PO, PT ANXIOUS AND MEDICATED PER EMAR, NAUSEA BUT NO VOMITING THIS SHIFT AND ALSO MEDICATED PER EMAR, POWER GLIDE INSERTED AFTER IV ACCESS LOST, PT FIDGETTING AND ADHESIVE FROM IV ACCESS DIDN'T STAY IN PLACE. FLUIDS INFUSING, NO ACUTE EVENTS THIS SHIFT. CALL LIGHT IN REACH, WILL CTM AND REPORT TO DAY RN.
[2020-10-22 06:52] LABS: Anion Gap 6 mmol/L (6-16); Blood Urea Nitrogen 17 mg/dL (8-24); Bun/Creatinine Ratio 17.1 (12.0-20.0); CO2, Blood 19 mmol/L (21-32); Calcium, Blood 8.4 mg/dL (8.5-10.1); Chloride, Blood 117 mmol/L (98-108); Glomerular Filtration Rate >60 (60-); Glucose, Blood 72 mg/dL (70-99); Sodium, Blood 142 mmol/L (136-145)
--- NOTE | 2020-10-22 09:50 | NUR ---
pt noted sitting on edge of bed rocking back and forth. pt removed telemetry and peripheral IV and states she is bewing discharged today and needs to go home because of the family drama. discussed with patient that at this time there are no discharge orders. telemetry reapplied and patient cooperative
[2020-10-22] MEDS ORDERED: GABA300 PO (12:08)
[2020-10-22] MEDS ORDERED: BUPRENORPHINE HC2 MG SL (12:08)
[2020-10-22] MEDS ORDERED: Nicoderm Cq1 EAC1 TOP (12:09)
[2020-10-22] MEDS ORDERED: FAMO20 PO (12:10)
--- NOTE | 2020-10-22 12:23 | NUR ---
DISCHARGE INSTRUCTIONS REVIEWED WITH PATIENT AND PATIENT VERBALIZES UNDERSTANDING. PT AWARE OF DOSEAGE CHANGES ON DISCHARGE MEDS. PT AMBULATING IN ROOM, STEADY ON FEET, DENIES NAUSEA AND JAME REG DIET
== END 2020-10-22 12:35 | disposition home or self-care (01) | DRG 683 ==
LOC: ER 16:59 → MEDS 20:51 → SURS 20:51
PROVIDERS: Internal Medicine; Student in an Organized Health Care Education/Training Program; ADMIT Internal Medicine
DX: N17.9 Acute kidney failure, unspecified (principal); E87.2 Acidosis; I47.1 Supraventricular tachycardia; E87.1 Hypo-osmolality and hyponatremia; M62.82 Rhabdomyolysis; F05 Delirium due to known physiological condition; E86.0 Dehydration; I10 Essential (primary) hypertension; D72.829 Elevated white blood cell count, unspecified; E66.01 Morbid (severe) obesity due to excess calories; G89.4 Chronic pain syndrome; T40.495A Adverse effect of other synthetic narcotics, initial encounter; F41.1 Generalized anxiety disorder; M54.9 Dorsalgia, unspecified; F32.9 Major depressive disorder, single episode, unspecified; Z90.89 Acquired absence of other organs; Z88.6 Allergy status to analgesic agent; Z88.5 Allergy status to narcotic agent; Z88.8 Allergy status to other drugs, medicaments and biological substances; Z98.890 Other specified postprocedural states; Z86.010 Personal history of colon polyps; Z79.899 Other long term (current) drug therapy; Z68.31 Body mass index [BMI] 31.0-31.9, adult
CPT/HCPCS: 36415; 51702; 76705; 76770; 80047; 80048; 80053; 80400; 81001; 82010; 82533; 82550; 82553; 82803; 82947; 83605; 83690; 83735; 83930; 84443; 85014; 85025; 87493; 93005; 93010; 96361-59; 96374-59; 96375-59; 99285-25; A9270; C1751; C9113; G0480; J0780; J0834; J1644; J1650; J1790; J2060; J2550; J2765; J7030; J7042

== ENCOUNTER 2020-10-29 03:17 | Day surgery (SDC) | payer OTHER ==
[~2020-10-29 03:17] MED LIST changes: +FAMO20 PO; +Nicoderm Cq1 EAC1 TOP
== END 2020-10-29 23:14 | disposition home or self-care (01) ==
LOC: WOUND 03:17
DX: L89.159 Pressure ulcer of sacral region, unspecified stage (principal); I10 Essential (primary) hypertension; J45.909 Unspecified asthma, uncomplicated; Z88.5 Allergy status to narcotic agent; Z88.6 Allergy status to analgesic agent
CPT/HCPCS: A9270; G0463

== ENCOUNTER 2022-07-21 20:34 | Inpatient (IN) | payer OTHER ==
[~2022-07-21] VITALS: Ht 167.6 cm; Wt 92.9 kg
[~2022-07-21 20:34] MED LIST changes: +Gabapentin600 MG PO; +Zithromax250 MG PO
[2022-07-21 21:08] LABS: BASOPHILS ABSOLUTE AUTO 0.03 K/mm3 (0.00-0.23); BASOPHILS PERCENT AUTO 0 % (0-2); EOSINOPHILS PERCENT AUTO 0 % (0-6); Hematocrit 38.7 % (33.0-51.0); Hemoglobin 12.3 g/dL (11.5-16.0); IMMATURE GRAN ABSOLUTE AUTO 0.04 K/mm3 (0.00-0.10); IMMATURE GRAN PERCENT AUTO 0 % (0-1); LYMPHOCYTES ABSOLUTE AUTO 1.37 K/mm3 (0.84-5.20); LYMPHOCYTES PERCENT AUTO 8 % (21-46); MONOCYTES ABSOLUTE AUTO 0.91 K/mm3 (0.16-1.47); MONOCYTES PERCENT AUTO 6 % (4-13); Mean Corpuscular HGB 24.4 pg (26.0-34.0); Mean Corpuscular HGB Conc 31.8 g/dL (31.5-36.5); Mean Corpuscular Volume 77 fL (80-100); Mean Platelet Volume 9.4 fL (9.1-12.4); NEUTROPHILS ABSOLUTE AUTO 14.01 K/mm3 (1.96-9.15); NEUTROPHILS PERCENT AUTO 86 % (41-73); Platelet Count 532 K/mm3 (150-400); RDW Coefficient Variation 19.7 % (11.7-14.2); RDW Standard Deviation 53.2 fL (35.1-46.3); Red Blood Cell Count 5.05 M/mm3 (3.80-5.20); White Blood Cell Count 16.36 K/mm3 (4.00-11.30)
[2022-07-21 21:28] LABS: Albumin, Blood 2.8 g/dL (3.4-5.0); Albumin/Globulin Ratio 0.6 (0.8-1.8); Bilirubin, Total 0.5 mg/dL (0.1-1.0); Bun/Creatinine Ratio 19.8 (12.0-20.0); Calcium, Blood 8.6 mg/dL (8.5-10.1); Creatinine, Blood 1.31 mg/dL (0.40-1.00); Potassium, Blood 3.7 mmol/L (3.5-5.5); Total Protein, Blood 7.8 g/dL (6.4-8.2)
[2022-07-21 22:41] LABS: Source, Urine Clean Catch
[2022-07-21 22:49] LABS: Bilirubin, Urine Neg (Neg); Blood, Urine 3+ (Neg); Color, Urine Yellow (P-Yellow); Glucose Qualitative, Urine Neg (Neg); Ketones, Urine Neg (Neg); Leukocyte Esterase, Urine Neg (Neg); Nitrite, Urine Neg (Neg); Protein, Urine 1+ (Neg); Urobilinogen, Urine NORM (Normal)
[2022-07-21 22:56] LABS: Appearance, Urine Hazy (Clear)
[2022-07-21 22:59] LABS: Bacteria Few /hpf; Granular Casts 0-2 /lpf (0); Hyaline Casts 0-2 /lpf (0-2); Red Blood Cells, Urine 0-2 /hpf (0-2); Squamous Epithelial Cells Mod /hpf (Few); White Blood Cells, Urine 0-2 /hpf (0-5)
[2022-07-22] VITALS (13 sets, daily range): BP systolic 92–138; BP diastolic 57–91
[2022-07-22 02:02] LABS: U Amphetamine Screen Not Detected; U Barbituate Screen Not Detected; U Benzodiazapine Screen Not Detected; U Buprenorphine Screen DETECTED; U Cannabinoids Screen DETECTED; U Cocaine Screen Not Detected; U Methadone Screen Not Detected; U Methamphetamine Screen Not Detected; U Opiates Screen Not Detected; U Oxycodone Screen Not Detected; U Phencyclidine Screen Not Detected; U Propoxyphene Screen Not Detected
[2022-07-22] MEDS ORDERED: Prozac40 MG PO (03:38)
[2022-07-22] MEDS ORDERED: CATAPRES0.2 M1 PO (03:39)
[2022-07-22 04:09] LABS: BASOPHILS ABSOLUTE AUTO 0.02 K/mm3 (0.00-0.23); BASOPHILS PERCENT AUTO 0 % (0-2); EOSINOPHILS PERCENT AUTO 0 % (0-6); Hematocrit 33.9 % (33.0-51.0); Hemoglobin 11.1 g/dL (11.5-16.0); IMMATURE GRAN ABSOLUTE AUTO 0.02 K/mm3 (0.00-0.10); IMMATURE GRAN PERCENT AUTO 0 % (0-1); LYMPHOCYTES PERCENT AUTO 10 % (21-46); MONOCYTES ABSOLUTE AUTO 0.94 K/mm3 (0.16-1.47); MONOCYTES PERCENT AUTO 6 % (4-13); Mean Corpuscular HGB 24.6 pg (26.0-34.0); Mean Corpuscular HGB Conc 32.7 g/dL (31.5-36.5); Mean Corpuscular Volume 75 fL (80-100); Mean Platelet Volume 9.4 fL (9.1-12.4); NEUTROPHILS ABSOLUTE AUTO 12.75 K/mm3 (1.96-9.15); NEUTROPHILS PERCENT AUTO 83 % (41-73); Platelet Count 495 K/mm3 (150-400); RDW Coefficient Variation 19.6 % (11.7-14.2); RDW Standard Deviation 52.2 fL (35.1-46.3); Red Blood Cell Count 4.51 M/mm3 (3.80-5.20); White Blood Cell Count 15.33 K/mm3 (4.00-11.30)
[2022-07-22 04:57] LABS: Albumin, Blood 2.6 g/dL (3.4-5.0); Albumin/Globulin Ratio 0.6 (0.8-1.8); Bilirubin, Total 0.7 mg/dL (0.1-1.0); Calcium, Blood 8.1 mg/dL (8.5-10.1); Globulin, Blood 4.3 g/dL (2.2-4.0); Total Protein, Blood 6.9 g/dL (6.4-8.2)
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
--- NOTE | 2022-07-22 11:23 | NUR ---
RN/ DAY SHIFT SUMMARY MORNING REPORT RECEIVED DURING BEDSIDE GREETING WITH THE PATIENT. ASSESSMENT AND MEDICATION PASSED WITH NO COMPLICATIONS. THE PATIENT SEEMED TO BE VERY TIRED AND VITALS DEMONSTRATED LOW BLOOD PRESURE. THE PATIENT WAS ASYMPTOMATIC AT THE TIME OF ASSESSMENT. SHE HAS BECOME MORE AWAKE WITH TIME INTO THE AFTERNOON. WILL CONTINUE TO MONITOR.
[2022-07-22] MEDS ORDERED: Metoprolol Tart25 MG PO (14:33)
--- NOTE | 2022-07-22 16:21 | NUR ---
HOME MEDICATIONS RETURNED TO PATIENT'S PARENTS TO TAKE HOME. MOM AND DAD AT BEDSIDE AND UPDATED ON PLAN OF CARE.
--- NOTE | 2022-07-22 20:39 | NUR ---
ASSUMED PT CARE FROM MAT RN AND FRANCOISE RN ON HI. PT RESTING IN BED WITH EYES CLOSED, APPEARS TO BE SLEEPING. WAKES SPONTANIOUSLY. A&OX4. ABLE TO FOLLOW DIRECTIONS AND MAKE NEEDS KNOWN. DENIES ANY CHEST PAIN/PRESSURE OR SOB. REPORTS NAUSEA IS TOLERABLE AT THIS TIME. BACK PAIN 07/23, WILL GIVEN EVENING MEDICATIONS TO HELP WITH PAIN CONTROL. DENIES NEEDS AT THIS TIME. CALL LIGHT IN REACH. BED ALARM ON.
--- NOTE | 2022-07-22 22:17 | NUR ---
MEDICATED FOR ANXIETY. PROVIDED WITH FRESH SODA. DENIES FURTHER NEEDS. CALL LIGHT IN REACH.
[2022-07-23 04:12] VITALS: BP 129/74
[2022-07-23 04:20] LABS: Hemoglobin 8.5 g/dL (11.5-16.0); Mean Corpuscular HGB 24.9 pg (26.0-34.0); Mean Corpuscular HGB Conc 31.5 g/dL (31.5-36.5); Mean Corpuscular Volume 79 fL (80-100); Mean Platelet Volume 9.4 fL (9.1-12.4); Platelet Count 371 K/mm3 (150-400); RDW Standard Deviation 57.6 fL (35.1-46.3); Red Blood Cell Count 3.42 M/mm3 (3.80-5.20); White Blood Cell Count 10.05 K/mm3 (4.00-11.30)
[2022-07-23 04:43] LABS: Albumin, Blood 2.3 g/dL (3.4-5.0); Albumin/Globulin Ratio 0.6 (0.8-1.8); Bilirubin, Total 0.3 mg/dL (0.1-1.0); Calcium, Blood 7.8 mg/dL (8.5-10.1); Creatinine, Blood 0.85 mg/dL (0.40-1.00); Globulin, Blood 3.7 g/dL (2.2-4.0); Magnesium, Blood 2.5 mg/dL (1.6-2.4)
--- NOTE | 2022-07-23 05:55 | NUR ---
SHIFT SUMMARY: PT MEDICATED FOR NAUSEA AND ANXIETY THROUGHOUT NIGHT, SEE EMAR. DROWSY BUT WAKES TO NOISE. NO ACUTE CHANGES NOTED THROUGHOUT SHIFT. PLACED ON 1 LPM WHEN SLEEPING DUE TO DESATURATION TO 88%, > 92% WHEN ON 1 LPM. WHILE AWAKE SATS 100% ON RA. WILL CONTINUES TO MONITOR. CALL LIGHT IN REACH.
[2022-07-23 07:32] VITALS: BP 144/88
[2022-07-23] MEDS ORDERED: DOCU100 PO (11:47)
[2022-07-23] MEDS ORDERED: METO10 PO (11:48)
[2022-07-23] MEDS ORDERED: NICO21TP TOP (11:49)
[2022-07-23] MEDS ORDERED: CIPR500 PO (11:49)
[2022-07-23] MEDS ORDERED: METR500 PO (11:50)
--- NOTE | 2022-07-23 11:53 | NUR ---
AM NOTE: PATIENT ALERT AND ORIENTED X4. ANXIOUS. ABLE TO FOLLOW ALL COMMANDS. SBA FOR SAFETY. DENIES N/T. PERRLA. AT TIMES SWEATY AND MORE ALANNA WITH ANXIETY. ON ROOM AIR SATING ABOVE 95%. HOME O2 EVAL DONE, PATIENT NOT NEEDING OXYGEN AT HOME. TELE SHOWING SINUS TACH WITH HR 110-140'S. HR INCREASING WITH ACTIVITY AND ANXIETY. DENIES CHEST PAIN/PRESSURE/PALPITATIONS. NO SIGNS OF EDEMA. ABDOMINAL PAIN DECREASED AND NO NAUSEA THIS AM. PATIENT WAS ABLE TO HAVE SUCCESSFUL BOWEL MOVEMENTS YESTERDAY. DENIES ABDOMINAL TENDERNESS WITH PALPATION. IV ABX GIVEN THIS AM. USING CALL LIGHT. PLAN FOR DISCHARGE THIS AFTERNOON. FAMILY CALLED AND UPDATED.
[2022-07-23 11:59] VITALS: BP 132/80
--- NOTE | 2022-07-23 12:21 | NUR ---
DISCHARGE: PATIENT MOM AND DAD IN TO PICK PATIENT UP. NO ACUTE CHANGES. BP STABLE. DISCHARGE PACKET REVIEWED WITH PATIENT AND MEDICATIONS FAXED TO [facility]. PATIENT INSTRUCTED TO STOP TAKING PROMETHAZINE AND TO INSTEAD TAKE REGLAN AT HOME. OTHER MEDICATIONS DISSCUSSED INCLUDED ANTIBIOTICS, NICOTINE PATCH AND STOOL SOFTNERS. PATIENT ABLE TO VERBALIZE INSTRUCTIONS BACK TO THIS RN. PATIENT ALREADY HAS APPOINTMENT SCHEDULED WITH PRIMARY CARE PROVIDER NEXT WEEK. PATIENT LEFT UNIT WITH ALL PERSONAL BELONGINGS.
== END 2022-07-23 11:58 | disposition home or self-care (01) | DRG 387 ==
LOC: ER 20:34 → PCU 20:35
PROVIDERS: Emergency Medicine; Internal Medicine; ADMIT Student in an Organized Health Care Education/Training Program
DX: K50.10 Crohn's disease of large intestine without complications (principal); F12.20 Cannabis dependence, uncomplicated; F17.210 Nicotine dependence, cigarettes, uncomplicated; K59.09 Other constipation; R11.15 Cyclical vomiting syndrome unrelated to migraine; D72.829 Elevated white blood cell count, unspecified; F41.9 Anxiety disorder, unspecified; R94.31 Abnormal electrocardiogram [ECG] [EKG]; R00.0 Tachycardia, unspecified; G89.29 Other chronic pain; F32.A Depression, unspecified; F19.10 Other psychoactive substance abuse, uncomplicated; I10 Essential (primary) hypertension; Q76.0 Spina bifida occulta; M54.9 Dorsalgia, unspecified; Z90.89 Acquired absence of other organs; Z98.890 Other specified postprocedural states; Z88.8 Allergy status to other drugs, medicaments and biological substances; Z91.018 Allergy to other foods; Z88.5 Allergy status to narcotic agent; Z79.899 Other long term (current) drug therapy; Z86.79 Personal history of other diseases of the circulatory system
CPT/HCPCS: 36415; 71045; 74177; 76705; 80053; 81001; 81025; 83605; 83690; 83735; 84145; 85025; 85027; 93005; 93010; 94761; 96361; 96365; 96372; 96375; 96376; 99285-25; A9270; G0378; J0696; J1630; J1650; J2060; J3010; J3475; J7030; J7120; Q9967

== ENCOUNTER 2022-09-23 11:12 | Emergency (ER) | payer OTHER ==
[~2022-09-23] VITALS: Ht 170.2 cm; Wt 93.0 kg
[~2022-09-23 11:12] MED LIST changes: +CATAPRES0.2 M1 PO; +CIPR500 PO; +DOCU100 PO; +METO10 PO; +Metoprolol Tart25 MG PO; +NICO21TP TOP; +Prozac40 MG PO
[2022-09-23 11:53] LABS: BASOPHILS ABSOLUTE AUTO 0.05 K/mm3 (0.00-0.23); BASOPHILS PERCENT AUTO 0 % (0-2); EOSINOPHILS ABSOLUTE AUTO 0.17 K/mm3 (0.00-0.68); EOSINOPHILS PERCENT AUTO 1 % (0-6); Hematocrit 35.7 % (33.0-51.0); Hemoglobin 11.4 g/dL (11.5-16.0); IMMATURE GRAN ABSOLUTE AUTO 0.04 K/mm3 (0.00-0.10); IMMATURE GRAN PERCENT AUTO 0 % (0-1); LYMPHOCYTES ABSOLUTE AUTO 2.04 K/mm3 (0.84-5.20); LYMPHOCYTES PERCENT AUTO 17 % (21-46); MONOCYTES PERCENT AUTO 4 % (4-13); Mean Corpuscular HGB 24.9 pg (26.0-34.0); Mean Corpuscular HGB Conc 31.9 g/dL (31.5-36.5); Mean Corpuscular Volume 78 fL (80-100); Mean Platelet Volume 9.1 fL (9.1-12.4); NEUTROPHILS ABSOLUTE AUTO 9.27 K/mm3 (1.96-9.15); NEUTROPHILS PERCENT AUTO 77 % (41-73); Platelet Count 653 K/mm3 (150-400); RDW Standard Deviation 53.7 fL (35.1-46.3); Red Blood Cell Count 4.58 M/mm3 (3.80-5.20); White Blood Cell Count 12.07 K/mm3 (4.00-11.30)
[2022-09-23 12:10] LABS: Albumin, Blood 3.4 g/dL (3.4-5.0); Albumin/Globulin Ratio 0.7 (0.8-1.8); Bilirubin, Total 0.2 mg/dL (0.1-1.0); Bun/Creatinine Ratio 14.8 (12.0-20.0); Calcium, Blood 9.4 mg/dL (8.5-10.1); Creatinine, Blood 0.88 mg/dL (0.40-1.00); Globulin, Blood 5.1 g/dL (2.2-4.0); Magnesium, Blood 1.9 mg/dL (1.6-2.4); Potassium, Blood 3.7 mmol/L (3.5-5.5); Total Protein, Blood 8.5 g/dL (6.4-8.2)
[2022-09-23 15:07] LABS: Source, Urine Clean Catch
[2022-09-23 15:17] LABS: Appearance, Urine Clear (Clear); Blood, Urine 4+ (Neg); Color, Urine Amber (P-Yellow); Glucose Qualitative, Urine Neg (Neg); Ketones, Urine 1+ (Neg); Leukocyte Esterase, Urine 1+ (Neg); Nitrite, Urine Neg (Neg); Protein, Urine 2+ (Neg); Urobilinogen, Urine NORM (Normal)
[2022-09-23 15:25] LABS: Bilirubin, Urine 1+ (Neg)
[2022-09-23 15:27] LABS: Bacteria Mod /hpf; Squamous Epithelial Cells Few /hpf (Few)
[2022-09-23 15:56] VITALS: BP 120/80
== END 2022-09-23 15:58 | disposition home or self-care (01) ==
LOC: ER 11:12
PROVIDERS: Emergency Medicine
DX: K59.00 Constipation, unspecified (principal)
CPT/HCPCS: 74022; 80053; 81001; 83690; 83735; 85025; 87086; 96361; 96372-59; 96374; 96375; 99284-25; J0500; J0780; J1630; J2060; J7030

== ENCOUNTER 2022-10-02 05:25 | Emergency (ER) | payer OTHER ==
[~2022-10-02] VITALS: Ht 167.6 cm; Wt 93.0 kg
[2022-10-02 05:41] VITALS: BP 111/60
[2022-10-02 06:43] LABS: BASOPHILS ABSOLUTE AUTO 0.07 K/mm3 (0.00-0.23); BASOPHILS PERCENT AUTO 0 % (0-2); EOSINOPHILS ABSOLUTE AUTO 0.37 K/mm3 (0.00-0.68); EOSINOPHILS PERCENT AUTO 2 % (0-6); Hematocrit 34.9 % (33.0-51.0); IMMATURE GRAN ABSOLUTE AUTO 0.13 K/mm3 (0.00-0.10); IMMATURE GRAN PERCENT AUTO 1 % (0-1); LYMPHOCYTES PERCENT AUTO 11 % (21-46); MONOCYTES ABSOLUTE AUTO 1.15 K/mm3 (0.16-1.47); MONOCYTES PERCENT AUTO 5 % (4-13); Mean Corpuscular HGB 25.4 pg (26.0-34.0); Mean Corpuscular HGB Conc 31.5 g/dL (31.5-36.5); Mean Corpuscular Volume 81 fL (80-100); Mean Platelet Volume 9.2 fL (9.1-12.4); NEUTROPHILS ABSOLUTE AUTO 19.38 K/mm3 (1.96-9.15); NEUTROPHILS PERCENT AUTO 82 % (41-73); Platelet Count 600 K/mm3 (150-400); RDW Coefficient Variation 18.6 % (11.7-14.2); RDW Standard Deviation 55.1 fL (35.1-46.3); Red Blood Cell Count 4.33 M/mm3 (3.80-5.20)
[2022-10-02 06:56] LABS: Albumin, Blood 3.3 g/dL (3.4-5.0); Albumin/Globulin Ratio 0.7 (0.8-1.8); Bilirubin, Total 0.2 mg/dL (0.1-1.0); Bun/Creatinine Ratio 12.5 (12.0-20.0); Creatinine, Blood 1.12 mg/dL (0.40-1.00); Potassium, Blood 4.6 mmol/L (3.5-5.5); Total Protein, Blood 8.3 g/dL (6.4-8.2)
[2022-10-02] MEDS ORDERED: AMOCLA875 PO (09:06)
[2022-10-02] MEDS ORDERED: Diflucan200 MG PO (09:08)
== END 2022-10-02 09:32 | disposition home or self-care (01) ==
LOC: ER 05:25
PROVIDERS: Emergency Medicine
DX: K52.9 Noninfective gastroenteritis and colitis, unspecified (principal); K59.00 Constipation, unspecified; K21.9 Gastro-esophageal reflux disease without esophagitis; Z88.6 Allergy status to analgesic agent; Z88.5 Allergy status to narcotic agent; Z88.8 Allergy status to other drugs, medicaments and biological substances; Z79.899 Other long term (current) drug therapy; F17.200 Nicotine dependence, unspecified, uncomplicated
CPT/HCPCS: 74018; 74177; 80053; 83605; 85025; 93005; 93010; 96374; 99284-25; A9270; J0780; J2060; J7030; Q9967

== ENCOUNTER 2022-10-19 00:04 | Inpatient (IN) | payer OTHER ==
[~2022-10-19] VITALS: Ht 167.6 cm; Wt 96.6 kg
[2022-10-19] VITALS (14 sets, daily range): BP systolic 89–116; BP diastolic 45–78
[~2022-10-19 00:04] MED LIST changes: +Diflucan200 MG PO
[2022-10-19 01:29] LABS: BASOPHILS ABSOLUTE AUTO 0.05 K/mm3 (0.00-0.23); BASOPHILS PERCENT AUTO 0 % (0-2); EOSINOPHILS ABSOLUTE AUTO 0.21 K/mm3 (0.00-0.68); EOSINOPHILS PERCENT AUTO 1 % (0-6); Hematocrit 31.1 % (33.0-51.0); Hemoglobin 10.3 g/dL (11.5-16.0); IMMATURE GRAN ABSOLUTE AUTO 0.16 K/mm3 (0.00-0.10); IMMATURE GRAN PERCENT AUTO 1 % (0-1); LYMPHOCYTES ABSOLUTE AUTO 2.31 K/mm3 (0.84-5.20); LYMPHOCYTES PERCENT AUTO 11 % (21-46); MONOCYTES ABSOLUTE AUTO 0.72 K/mm3 (0.16-1.47); MONOCYTES PERCENT AUTO 3 % (4-13); Mean Corpuscular HGB 25.2 pg (26.0-34.0); Mean Corpuscular HGB Conc 33.1 g/dL (31.5-36.5); Mean Corpuscular Volume 76 fL (80-100); NEUTROPHILS ABSOLUTE AUTO 17.48 K/mm3 (1.96-9.15); NEUTROPHILS PERCENT AUTO 84 % (41-73); RDW Coefficient Variation 17.4 % (11.7-14.2); RDW Standard Deviation 48.8 fL (35.1-46.3); Red Blood Cell Count 4.08 M/mm3 (3.80-5.20); White Blood Cell Count 20.93 K/mm3 (4.00-11.30)
[2022-10-19 01:35] LABS: Mean Platelet Volume 9.1 fL (9.1-12.4)
[2022-10-19 01:36] LABS: Albumin, Blood 2.8 g/dL (3.4-5.0); Albumin/Globulin Ratio 0.5 (0.8-1.8); Bilirubin, Total 0.3 mg/dL (0.1-1.0); Bun/Creatinine Ratio 8.9 (12.0-20.0); Calcium, Blood 8.5 mg/dL (8.5-10.1); Creatinine, Blood 1.68 mg/dL (0.40-1.00); Globulin, Blood 5.3 g/dL (2.2-4.0); Potassium, Blood 4.4 mmol/L (3.5-5.5); Total Protein, Blood 8.1 g/dL (6.4-8.2)
[2022-10-19 01:55] LABS: Platelet Count 590 K/mm3 (150-400)
[2022-10-19] MEDS ORDERED: SULFAMETHOXAZO1 EAC1 PO (02:33)
[2022-10-19] MEDS ORDERED: CEPH250A PO (02:33)
[2022-10-19 06:56] LABS: Source, Urine Clean Catch
[2022-10-19 06:59] LABS: Appearance, Urine Clear (Clear); Bilirubin, Urine Neg (Neg); Blood, Urine 2+ (Neg); Glucose Qualitative, Urine Neg (Neg); Ketones, Urine Neg (Neg); Leukocyte Esterase, Urine Neg (Neg); Nitrite, Urine Neg (Neg); Protein, Urine Neg (Neg); Specific Gravity, Urine 1.005 (1.003-1.022); Urobilinogen, Urine NORM (Normal)
[2022-10-19 07:07] LABS: Color, Urine Pale Yellow (P-Yellow)
[2022-10-19 07:08] LABS: Bacteria Not Seen /hpf; Squamous Epithelial Cells Mod /hpf (Few); White Blood Cells, Urine Not Seen /hpf (0-5); Yeast/Fungi Urine Few /hpf
--- NOTE | 2022-10-19 09:11 | NUR ---
Telephone report received from RACHEAL Hodge. Anticipate pt arrival to PCU 5 shortly.
[2022-10-19 09:52] LABS: U Amphetamine Screen Not Detected; U Barbituate Screen Not Detected; U Methamphetamine Screen Not Detected
[2022-10-19 09:53] LABS: U Benzodiazapine Screen DETECTED; U Buprenorphine Screen DETECTED; U Cannabinoids Screen DETECTED; U Cocaine Screen Not Detected; U Methadone Screen Not Detected; U Opiates Screen Not Detected; U Oxycodone Screen Not Detected; U Phencyclidine Screen Not Detected; U Propoxyphene Screen Not Detected
--- NOTE | 2022-10-19 10:26 | NUR ---
Pt arrived to PCU 5. She states that she has been in the ED since 10pm yesterday, and is very hungry. She is asking for a pepsi. STates that she smokes 1 pack of cigarettes/day and would like a nicotine patch while she is here in the hospital. Voluntarily surrendered her electrical appliance mechanic for safekeeping. Faina RN placed it in the locked medication box for PCU 5. She also says that she takes clonidine 0.2 mg tid for anxiety and would like that if possible, but she also said that she thinks it might not be allowed since her blood pressure is so low.
--- NOTE | 2022-10-19 11:22 | NUR ---
Admission history and assessment completed. Blood pressure continues to be low, but pt is asymptomatic. She is sitting up talking with Jesus Tijerinain. Pt had requested resources for grief support/grief groups for her mom and possibly herself as the pt's dad just a month ago.
--- NOTE | 2022-10-19 12:04 | NUR ---
Pt is sitting up, eating lunch. Photo was taken of the right upper arm incision and area of redness. Area was cleansed with sterile saline. Skin prep applied on the periphery after it was dry. There is no noted drainage from the medial scab (pt states she poked and drained it at home) nor from the incision which pt states was done in the ED to drain it further. Area was covered with sterile non adherent gauze and secured with sterile tegederm. Pt has no c/o pain at the site.
--- NOTE | 2022-10-19 13:04 | NUR ---
Upon receiving a request for spiritual care, I visited the patient. She tells me about her medical conditions and the recent of her father less than a month ago. She asks about bereavement counseling for mom and herself and I provide her with several resources. I also provide grief support, gentle student success counselor and prayer. Patient responded well and stated that the prayer was meaningful and the conversation helpful. I will continue to remain available to patient and family.
--- NOTE | 2022-10-19 13:09 | NUR ---
Pt sitting up, talking on the phone with her mom. Xanax given per her request for anxiety. She normally takes clonidine 0.2 mg tid at home.
--- NOTE | 2022-10-19 14:16 | NUR ---
Pt is sleeping, but awakens easily. HOB lowered per pt's stated comfort level. She goes back to sleep right away after short appropriate conversation. Blood pressures remain on the low side, but she denies any symptoms.
--- NOTE | 2022-10-19 15:39 | NUR ---
Pt was very somnulent, and spo2 80% while sleeping. given oxygen at 2 l/min and this awakened the patient, and spo2 improved to 94-96% while on the 2 l/min while awake.
--- NOTE | 2022-10-19 17:10 | NUR ---
Call to dr. Mcdonnell regarding persistent low blood pressures. Orders received for IVF, midodrine as well as culture of the abcess which was collected in the ED today.
--- NOTE | 2022-10-19 17:11 | NUR ---
PT is falling asleep while I am at the bedside. She awakens quickly and is coherent and appropriate in conversation, but is having difficulty staying awake. States that she did not sleep at all last night in the ED.
[2022-10-20 00:02] VITALS: BP 117/72
[2022-10-20 03:46] LABS: BASOPHILS ABSOLUTE AUTO 0.03 K/mm3 (0.00-0.23); BASOPHILS PERCENT AUTO 0 % (0-2); EOSINOPHILS ABSOLUTE AUTO 0.54 K/mm3 (0.00-0.68); EOSINOPHILS PERCENT AUTO 5 % (0-6); Hematocrit 27.9 % (33.0-51.0); Hemoglobin 8.9 g/dL (11.5-16.0); IMMATURE GRAN ABSOLUTE AUTO 0.04 K/mm3 (0.00-0.10); IMMATURE GRAN PERCENT AUTO 0 % (0-1); LYMPHOCYTES ABSOLUTE AUTO 2.76 K/mm3 (0.84-5.20); LYMPHOCYTES PERCENT AUTO 23 % (21-46); MONOCYTES ABSOLUTE AUTO 0.86 K/mm3 (0.16-1.47); MONOCYTES PERCENT AUTO 7 % (4-13); Mean Corpuscular HGB 24.9 pg (26.0-34.0); Mean Corpuscular HGB Conc 31.9 g/dL (31.5-36.5); Mean Corpuscular Volume 78 fL (80-100); Mean Platelet Volume 8.8 fL (9.1-12.4); NEUTROPHILS ABSOLUTE AUTO 7.66 K/mm3 (1.96-9.15); NEUTROPHILS PERCENT AUTO 65 % (41-73); Platelet Count 500 K/mm3 (150-400); RDW Coefficient Variation 17.8 % (11.7-14.2); RDW Standard Deviation 50.9 fL (35.1-46.3); Red Blood Cell Count 3.57 M/mm3 (3.80-5.20); White Blood Cell Count 11.89 K/mm3 (4.00-11.30)
[2022-10-20 04:01] VITALS: BP 113/76
[2022-10-20 04:10] LABS: Albumin, Blood 2.4 g/dL (3.4-5.0); Albumin/Globulin Ratio 0.5 (0.8-1.8); Bilirubin, Total 0.1 mg/dL (0.1-1.0); Bun/Creatinine Ratio 8.3 (12.0-20.0); Calcium, Blood 8.4 mg/dL (8.5-10.1); Creatinine, Blood 0.96 mg/dL (0.40-1.00); Globulin, Blood 4.7 g/dL (2.2-4.0); Potassium, Blood 4.4 mmol/L (3.5-5.5); Total Protein, Blood 7.1 g/dL (6.4-8.2)
--- NOTE | 2022-10-20 04:51 | NUR ---
SHIFT SUMMARY THIS RN ASSUMED CARE OF PATIENT AT 1900. PT A&O X4. PT ON 2L VIA NC WHILE SLEEPING D/T DESATTING TO THE 80'S; OTHERWISE WHILE AWAKE PT ON RA WITH SPO2 >92%. SBP 100-110'S DURING THIS SHIFT. AFEBRILE. SR WITH HR 60'S. DRESSING ON ANAID C/D/I. INFUSING NS PER EMAR. PT ABLE TO AMBULATE TO BATHROOM WITH SBA. BED IN LOWEST POSITION AND CALL LIGHT WITHIN REACH. THIS RN WILL REPORT TO ONCOMING RN.
[2022-10-20 12:59] VITALS: BP 91/50
[2022-10-20 14:26] VITALS: BP 102/57
--- NOTE | 2022-10-20 15:28 | NUR ---
Telephone report given to RACHEAL Duncan. PT will be transferring to room 304 shortly.
--- NOTE | 2022-10-20 15:38 | NUR ---
Patient is sitting up and eating and easily engages in conversation. She shares about the help spiritual care had been to her and her mother when her father at [facility] several months ago. She talks about her sisters in 2014 and how that effected the family but mostly her mother. We also talk about the food she enjoys, her new puppy and her mom's interest in the bereavement materials that I distributed to the patient last visit. Patient perks up during our conversation and seems to allow for therapeutic alliance. I listened empathically, reinforced helpful attitudes and practices, explored moravian beliefs and provided prayer and theological insights. Patient responded well and showed signs of an elevated mood and an increased curiosity of spiritual health.
--- NOTE | 2022-10-20 16:00 | NUR ---
AT ARRIVED TO ROOM FROM PCU VIA W/C, IV ABX INFUSING, PT STOOD AND TRANSFERRED TO BED WITHOUT ASSISTANCE. ORIENTED TO ROOM, PHONE AND CALL SYSTEM. PROVIED WITH LARGE ICED PEPSI PER PT REQUEST. DENIES PAIN,SOB OR DIZZINESS AT THIS TIME. WILL CONTINUE TO MONITOR.
[2022-10-20 16:10] VITALS: BP 95/81
[2022-10-20 19:31] VITALS: BP 107/70
[2022-10-21 03:38] VITALS: BP 115/63
--- NOTE | 2022-10-21 04:01 | NUR ---
SHIFT SUMMARY PATIENT A/Ox4, PLEASANT, COOPERATIVE. DENIES PAIN NOR DISCOMFORT. CONTINUES ON IV Abx THERAPY WITHOUT ANY APPARENT ASE NOTED. INDEPENDANT IN ROOM. NO ACUTE CHANGES NOTED OVERNIGHT. BED LOCKED, IN LOW POSITION, CALL LIGHT WITHIN REACH.
[2022-10-21 04:57] LABS: BASOPHILS ABSOLUTE AUTO 0.04 K/mm3 (0.00-0.23); BASOPHILS PERCENT AUTO 0 % (0-2); EOSINOPHILS PERCENT AUTO 5 % (0-6); Hematocrit 28.2 % (33.0-51.0); IMMATURE GRAN ABSOLUTE AUTO 0.03 K/mm3 (0.00-0.10); IMMATURE GRAN PERCENT AUTO 0 % (0-1); LYMPHOCYTES PERCENT AUTO 37 % (21-46); MONOCYTES ABSOLUTE AUTO 0.62 K/mm3 (0.16-1.47); MONOCYTES PERCENT AUTO 7 % (4-13); Mean Corpuscular HGB 25.1 pg (26.0-34.0); Mean Corpuscular HGB Conc 31.9 g/dL (31.5-36.5); Mean Corpuscular Volume 79 fL (80-100); Mean Platelet Volume 8.9 fL (9.1-12.4); NEUTROPHILS ABSOLUTE AUTO 4.68 K/mm3 (1.96-9.15); NEUTROPHILS PERCENT AUTO 51 % (41-73); Platelet Count 564 K/mm3 (150-400); RDW Coefficient Variation 17.5 % (11.7-14.2); RDW Standard Deviation 50.2 fL (35.1-46.3); Red Blood Cell Count 3.59 M/mm3 (3.80-5.20); White Blood Cell Count 9.27 K/mm3 (4.00-11.30)
[2022-10-21 05:18] LABS: Bun/Creatinine Ratio 6.8 (12.0-20.0); Calcium, Blood 8.7 mg/dL (8.5-10.1); Creatinine, Blood 0.88 mg/dL (0.40-1.00); Potassium, Blood 4.1 mmol/L (3.5-5.5)
[2022-10-21 07:08] VITALS: BP 101/50
[2022-10-21 08:21] VITALS: BP 123/63
[2022-10-21] MEDS ORDERED: VISBIOME 112.51 EACH PO (11:08)
[2022-10-21] MEDS ORDERED: Nicoderm Cq1 EAC1 TOP (11:09)
[2022-10-21] MEDS ORDERED: AMOCLA875 PO (11:09)
[2022-10-21] MEDS ORDERED: Diflucan100 MG PO (11:09)
--- NOTE | 2022-10-21 13:13 | NUR ---
NOTES/DISCHARGE SUMMARY: PATIENT A&OX4. PLEASANT AND COOPERATIVE c CARE. USES CALL LIGHT APPROPRIATELY AND ABLE TO MAKE NEEDS KNOWN. PATIENT DENIES CP/PRESSURE, SOB, N/V, DIZZINESS AND GENERALIZED PAIN. PATIENT REPORTS ANXIOUS THIS AM, MEDICATED c PRN ANXIETY MEDS PER EMAR c GOOD EFFECT. PATIENT EATING AND DRINKING WELL. CELLULITIS TO ANAID DRESSING C/D/I. RECEIVED IV ABX AND ORAL SCHEDULED MEDS PER EMAR. VITAL SIGNS REVIEWED. AMBULATES TO BATHROOM INDEPENDENTLY. IV TO L FOREARM AND ANAID DC'D. PATIENT EDUCATED ON NON SMOKING POLICY, RISK OF INJURY AND IGNITION SOURCES WHEN O2 IN USE. PATIENT DENIES SMOKING AND VERBALIZED UNBDERSTANDING. PATIENT DISCHARGE HOME. DISCHARGE INSTRUCTIONS PACKET GIVEN TO PATIENT. EDUCATE PATIENT REGARDING ADMITTING DX OF CELLULITIS TO ANAID. S/S, TX, DRESSING CHANGED, AND NEW PRESCRIBED MEDS. PATIENT VERBALIZED UNDERSTANDING AND NO FURTHER QUESTIONS. RX WAS FAXED TO PATIENT PREFERRED PHARMACY. ALL PATIENT PERSONAL BELONGINGS WERE SENT HOME c THE PATIENT. PATIENT LEFT THE ROOM AT AROUND 1320. PATIENT WAS TRANSPORTED VIA WHEELCHAIR BY [facility] TO PATIENT ENTRANCE.
== END 2022-10-21 13:24 | disposition home or self-care (01) | DRG 872 ==
LOC: ER 00:04 → MEDS 00:05 → PCU 09:53 → MEDS 10-20 15:57 → ENPENDDIS 10-21 10:39 → MEDS 10-21 13:24
PROVIDERS: Internal Medicine; Student in an Organized Health Care Education/Training Program; ADMIT Internal Medicine
PROC: 3E03329 Introduction of Other Anti-infective into Peripheral Vein, Percutaneous Approach (ICD-10-PCS; principal; 2022-10-19)
PROC: 0J9D3ZX Drainage of Right Upper Arm Subcutaneous Tissue and Fascia, Percutaneous Approach, Diagnostic (ICD-10-PCS; 2022-10-19)
DX: A41.9 Sepsis, unspecified organism (principal); L02.413 Cutaneous abscess of right upper limb; N17.9 Acute kidney failure, unspecified; E87.1 Hypo-osmolality and hyponatremia; L03.113 Cellulitis of right upper limb; G89.29 Other chronic pain; M54.9 Dorsalgia, unspecified; R65.20 Severe sepsis without septic shock; F32.A Depression, unspecified; R56.9 Unspecified convulsions; K21.9 Gastro-esophageal reflux disease without esophagitis; D75.839 Thrombocytosis, unspecified; D63.8 Anemia in other chronic diseases classified elsewhere; R11.15 Cyclical vomiting syndrome unrelated to migraine; N80.9 Endometriosis, unspecified; F41.9 Anxiety disorder, unspecified; F17.210 Nicotine dependence, cigarettes, uncomplicated; Z88.8 Allergy status to other drugs, medicaments and biological substances; Z88.5 Allergy status to narcotic agent; Z79.899 Other long term (current) drug therapy; Z88.1 Allergy status to other antibiotic agents; Z86.711 Personal history of pulmonary embolism; Z85.830 Personal history of malignant neoplasm of bone; Z90.89 Acquired absence of other organs; Z98.890 Other specified postprocedural states
CPT/HCPCS: 10160; 36415; 71046; 80048; 80053; 81001; 83605; 85025; 87040; 87070; 87075; 87205; 93306; 96361-59; 96365-59; 96366-59; 96367-59; 99285-25; A9270; J1650; J2543; J3370; J7030; J7050; J7120

== ENCOUNTER 2023-01-17 11:18 | Emergency (ER) | payer OTHER ==
[~2023-01-17] VITALS: Ht 167.6 cm; Wt 95.2 kg
[~2023-01-17 11:18] MED LIST changes: +CEPH250A PO; +SULFAMETHOXAZO1 EAC1 PO; +VISBIOME 112.51 EACH PO
[2023-01-17 12:56] LABS: Influenza A, PCR NEGATIVE (NEGATIVE); Influenza B, PCR NEGATIVE (NEGATIVE); Resp Syncytial Virus, PCR NEGATIVE (NEGATIVE); SARS-Cov-2 (COVID-19) PCR, MMC NEGATIVE (NEGATIVE)
[2023-01-17 13:21] LABS: BASOPHILS ABSOLUTE AUTO 0.04 K/mm3 (0.00-0.23); BASOPHILS PERCENT AUTO 0 % (0-2); EOSINOPHILS ABSOLUTE AUTO 0.18 K/mm3 (0.00-0.68); EOSINOPHILS PERCENT AUTO 1 % (0-6); Hematocrit 34.4 % (33.0-51.0); Hemoglobin 10.5 g/dL (11.5-16.0); IMMATURE GRAN ABSOLUTE AUTO 0.08 K/mm3 (0.00-0.10); IMMATURE GRAN PERCENT AUTO 0 % (0-1); LYMPHOCYTES ABSOLUTE AUTO 2.23 K/mm3 (0.84-5.20); LYMPHOCYTES PERCENT AUTO 12 % (21-46); MONOCYTES ABSOLUTE AUTO 0.64 K/mm3 (0.16-1.47); MONOCYTES PERCENT AUTO 3 % (4-13); Mean Corpuscular HGB 24.4 pg (26.0-34.0); Mean Corpuscular HGB Conc 30.5 g/dL (31.5-36.5); Mean Corpuscular Volume 80 fL (80-100); NEUTROPHILS ABSOLUTE AUTO 15.89 K/mm3 (1.96-9.15); NEUTROPHILS PERCENT AUTO 83 % (41-73); RDW Coefficient Variation 17.8 % (11.7-14.2); RDW Standard Deviation 51.8 fL (35.1-46.3); White Blood Cell Count 19.06 K/mm3 (4.00-11.30)
[2023-01-17 13:30] LABS: Albumin/Globulin Ratio 0.6 (0.8-1.8); Bilirubin, Total 0.4 mg/dL (0.1-1.0); Bun/Creatinine Ratio 13.7 (12.0-20.0); Calcium, Blood 8.8 mg/dL (8.5-10.1); Creatinine, Blood 0.8 mg/dL (0.40-1.00); Globulin, Blood 5.2 g/dL (2.2-4.0); Potassium, Blood 4.6 mmol/L (3.5-5.5); Total Protein, Blood 8.2 g/dL (6.4-8.2)
[2023-01-17 13:32] LABS: Mean Platelet Volume 9.4 fL (9.1-12.4); Platelet Count 581 K/mm3 (150-400)
[2023-01-17] MEDS ORDERED: ABILIFY MYCITE10 M2 PO (15:30)
[2023-01-17] MEDS ORDERED: OMEP20ER (15:30)
[2023-01-17] MEDS ORDERED: AMOCLA875 PO (16:56)
[2023-01-17 17:15] VITALS: BP 113/91
== END 2023-01-17 17:20 | disposition home or self-care (01) ==
LOC: ER 11:18
PROVIDERS: Physician Assistant
DX: J18.9 Pneumonia, unspecified organism (principal); D72.829 Elevated white blood cell count, unspecified; F17.200 Nicotine dependence, unspecified, uncomplicated; Z11.52 Encounter for screening for COVID-19; Z79.899 Other long term (current) drug therapy; Z88.5 Allergy status to narcotic agent; Z88.6 Allergy status to analgesic agent; Z88.8 Allergy status to other drugs, medicaments and biological substances; Z91.048 Other nonmedicinal substance allergy status
CPT/HCPCS: 0241U; 36415; 71046; 80053; 83605; 83880; 84145; 85025; 87040; 96361; 96365; 99285-25; J2543; J7030

== ENCOUNTER → 2023-01-23 | Outpatient (CLI) | payer OTHER ==
[~2023-01-23] MED LIST changes: +ABILIFY MYCITE10 M2 PO; +OMEP20ER
[2023-01-24 10:22] LABS: Candida species (DNA Probe) Positive (NEGATIVE); G. vaginalis (DNA Probe) Negative (NEGATIVE); T. vaginalis (DNA Probe) Negative (NEGATIVE)
== END ==
LOC: LAB 19:05 → LAB SHORT 19:05
PROVIDERS: Family Medicine
DX: B37.31 Acute candidiasis of vulva and vagina (principal)
CPT/HCPCS: 87480; 87510; 87660

== ENCOUNTER 2023-05-17 15:20 | Inpatient (IN) | payer OTHER ==
[~2023-05-17] VITALS: Ht 167.6 cm; Wt 100.6 kg
[~2023-05-17 15:20] MED LIST changes: -OMEP20ER
[2023-05-17] MEDS ORDERED: Metoclopramide HCl 5MG / ML 2ML Vial IV ONE ×2 (15:45→19:55)
[2023-05-17] MEDS ORDERED: Droperidol 5 mg/2 ml Vial IV ONE ×2 (15:45→19:55)
[2023-05-17] MEDS ORDERED: NS 1,000 ML IV SCH (15:45)
[2023-05-17 15:57] LABS: BASOPHILS ABSOLUTE AUTO 0.05 K/mm3 (0.00-0.23); BASOPHILS PERCENT AUTO 0 % (0-2); EOSINOPHILS ABSOLUTE AUTO 0.01 K/mm3 (0.00-0.68); EOSINOPHILS PERCENT AUTO 0 % (0-6); Hematocrit 32.4 % (33.0-51.0); Hemoglobin 9.9 g/dL (11.5-16.0); IMMATURE GRAN PERCENT AUTO 1 % (0-1); LYMPHOCYTES ABSOLUTE AUTO 1.02 K/mm3 (0.84-5.20); LYMPHOCYTES PERCENT AUTO 6 % (21-46); MONOCYTES ABSOLUTE AUTO 0.56 K/mm3 (0.16-1.47); MONOCYTES PERCENT AUTO 3 % (4-13); Mean Corpuscular HGB 21.8 pg (26.0-34.0); Mean Corpuscular HGB Conc 30.6 g/dL (31.5-36.5); Mean Corpuscular Volume 71 fL (80-100); Mean Platelet Volume 8.6 fL (9.1-12.4); NEUTROPHILS ABSOLUTE AUTO 15.91 K/mm3 (1.96-9.15); NEUTROPHILS PERCENT AUTO 90 % (41-73); Platelet Count 787 K/mm3 (150-400); RDW Coefficient Variation 19.1 % (11.7-14.2); RDW Standard Deviation 48.8 fL (35.1-46.3); Red Blood Cell Count 4.54 M/mm3 (3.80-5.20); White Blood Cell Count 17.65 K/mm3 (4.00-11.30)
[2023-05-17 16:20] LABS: Albumin, Blood 3.1 g/dL (3.4-5.0); Albumin/Globulin Ratio 0.5 (0.8-1.8); Bilirubin, Total 0.3 mg/dL (0.1-1.0); Bun/Creatinine Ratio 9.4 (12.0-20.0); Calcium, Blood 9.3 mg/dL (8.5-10.1); Creatinine, Blood 0.74 mg/dL (0.40-1.00); Globulin, Blood 5.8 g/dL (2.2-4.0); Potassium, Blood 3.1 mmol/L (3.5-5.5); Total Protein, Blood 8.9 g/dL (6.4-8.2)
[2023-05-17 17:30] LABS: Source, Urine Voided
[2023-05-17 17:36] LABS: Appearance, Urine Clear (Clear); Bilirubin, Urine Neg (Neg); Blood, Urine 3+ (Neg); Color, Urine Yellow (P-Yellow); Glucose Qualitative, Urine Neg (Neg); Ketones, Urine 2+ (Neg); Leukocyte Esterase, Urine Neg (Neg); Nitrite, Urine Neg (Neg); Protein, Urine 2+ (Neg); Specific Gravity, Urine 1.015 (1.003-1.022); Urobilinogen, Urine NORM (Normal)
[2023-05-17 17:45] LABS: Bacteria Few /hpf; Red Blood Cells, Urine 0-2 /hpf (0-2); Squamous Epithelial Cells Few /hpf (Few); White Blood Cells, Urine 0-2 /hpf (0-5)
[2023-05-17] MEDS ORDERED: LACTATED RINGERS IV SCH (20:50)
[2023-05-17] MEDS ORDERED: DEXTROSE IV SCH (20:50)
[2023-05-17] MEDS ORDERED: D5W-LR 1,000 ML IV SCH (21:00)
[2023-05-17] MEDS ORDERED: Haloperidol Lactate Inj. 5 MG/ML Injection IV ONE (22:55)
[2023-05-17] MEDS ORDERED: Capsaicin 0.025% Cream TOP ONE (22:55)
[2023-05-18] VITALS (7 sets, daily range): BP systolic 108–157; BP diastolic 75–103
[2023-05-18] MEDS ORDERED: Metoclopramide HCl 5MG / ML 2ML Vial IV PRN (01:55)
[2023-05-18] MEDS ORDERED: FentaNYL Citrate 50 MCG/ML 2 ML Injection IV PRN (01:55)
[2023-05-18] MEDS ORDERED: Potassium Chloride 40 MEQ in NS 250 ML IV STA (02:07)
[2023-05-18] MEDS ORDERED: Sodium Bicarb 8.4% Inj 75 MEQ in Sodium Chloride 0.45% 1,000 ML IV SCH (02:30)
[2023-05-18] MEDS ORDERED: DiphenhydrAMINE HCl 50 MG/ML 1ML Vial IV ONE (02:30)
[2023-05-18 02:50] LABS: BASOPHILS ABSOLUTE AUTO 0.04 K/mm3 (0.00-0.23); BASOPHILS PERCENT AUTO 0 % (0-2); EOSINOPHILS PERCENT AUTO 0 % (0-6); Hematocrit 30.6 % (33.0-51.0); Hemoglobin 9.2 g/dL (11.5-16.0); IMMATURE GRAN ABSOLUTE AUTO 0.13 K/mm3 (0.00-0.10); IMMATURE GRAN PERCENT AUTO 1 % (0-1); LYMPHOCYTES PERCENT AUTO 4 % (21-46); MONOCYTES ABSOLUTE AUTO 0.65 K/mm3 (0.16-1.47); MONOCYTES PERCENT AUTO 3 % (4-13); Mean Corpuscular HGB 21.7 pg (26.0-34.0); Mean Corpuscular HGB Conc 30.1 g/dL (31.5-36.5); Mean Corpuscular Volume 72 fL (80-100); Mean Platelet Volume 8.6 fL (9.1-12.4); NEUTROPHILS ABSOLUTE AUTO 21.87 K/mm3 (1.96-9.15); NEUTROPHILS PERCENT AUTO 93 % (41-73); Platelet Count 792 K/mm3 (150-400); RDW Coefficient Variation 18.8 % (11.7-14.2); RDW Standard Deviation 48.9 fL (35.1-46.3); Red Blood Cell Count 4.23 M/mm3 (3.80-5.20); White Blood Cell Count 23.59 K/mm3 (4.00-11.30)
[2023-05-18] MEDS ORDERED: Potassium Acetate 20 MEQ in NS 100 ML IV SCH (02:50)
[2023-05-18] MEDS ORDERED: Pantoprazole Sodium 40 MG Injection IV SCH (03:00)
[2023-05-18 03:12] LABS: Albumin, Blood 3.1 g/dL (3.4-5.0); Albumin/Globulin Ratio 0.6 (0.8-1.8); Bilirubin, Total 0.2 mg/dL (0.1-1.0); Bun/Creatinine Ratio 7.3 (12.0-20.0); Calcium, Blood 8.8 mg/dL (8.5-10.1); Creatinine, Blood 0.69 mg/dL (0.40-1.00); Globulin, Blood 5.3 g/dL (2.2-4.0); Magnesium, Blood 2.1 mg/dL (1.6-2.4); Potassium, Blood 3.6 mmol/L (3.5-5.5); Total Protein, Blood 8.4 g/dL (6.4-8.2)
[2023-05-18 03:14] LABS: International Normalized Ratio 1.09; Prothrombin Time Results 11.4 Sec (9.7-11.5)
[2023-05-18] MEDS ORDERED: LORazepam 2 MG/ML 1ML Injection IV ONE ×4 (05:15→16:20)
--- NOTE | 2023-05-18 05:38 | NUR ---
ADMIT NOTE HANDOFF RECEIVED FROM GERIATRIC NURSE ASSISTANT DENISSE. PT ARRIVED TO FLOOR VIA GURNEY. PT IS CONTINUOUSLY FIDGETING/TREMORS. IV FLUIDS GOING IN BOTH ARMS. TELEMETRY: TACHY @ 127 BPM. ATIVAN GIVEN ONCE 0.5 MG IV.
--- NOTE | 2023-05-18 06:18 | NUR ---
ATIVAN GIVEN ORDERS RECEIVED FROM HOSPITALIST. PT ANXIOUS AND TREMORS NOTED. 0.5 MG OF ATIVAN GIVEN FIRST TO NO EFFECT. ANOTHER 0.5 MG OF ATIVAN GIVEN DUE TO ANXIETY AND TREMORS. CHARGE INFORMED.
[2023-05-18] MEDS ORDERED: Lactated Ringer's 1,000 ML IV ONE (07:53)
[2023-05-18] MEDS ORDERED: Lactated Ringer's 1,000 ML IV SCH ×3 (07:55→21:10)
--- NOTE | 2023-05-18 08:30 | NUR ---
TRANSFER NOTE: PT ARRIVED TO ROOM PCU 5 FROM MEDICAL FLOOR. PT APPEARS TO BE JITTERY WITH FLAT AFFECT, AXO 3. C/O MID EPIGASTRIC ABDOMINAL PAIN 7/10. PT STATES SHE TOOK 4 TBSP OF MIRALAX LAST NIGHT WHICH IS MORE THAN SHE NORMALLY TAKES FOR HER HX OF CHRONIC CONSTIPATION. PT UP TO BEDSIDE COMMODE BY STAND BY ASSIST. NO BM AND NO VOID. MD PRESENT IN ROOM UPON TRANSFER. FLUIDS ADJUSTED PER PHYSICIAN ORDERS. LUNG SOUNDS CLEAR. SINUS TACH ON MONITOR, DENIES C/P. DIAPHORETIC AND WARM. AFEBRILE AT 98.8 ORAL TEMP. BED ALARM ON AND CALL LIGHT IN REACH. WILL MONITOR.
[2023-05-18 09:00] LABS: U Amphetamine Screen Not Detected; U Barbituate Screen Not Detected; U Benzodiazapine Screen DETECTED; U Buprenorphine Screen DETECTED; U Cannabinoids Screen DETECTED; U Cocaine Screen Not Detected; U Methadone Screen Not Detected; U Methamphetamine Screen Not Detected; U Opiates Screen Not Detected; U Oxycodone Screen Not Detected; U Phencyclidine Screen Not Detected
[2023-05-18] MEDS ORDERED: buprenorphine HCL 2 MG TAB.SUBL SL SCH (09:00)
[2023-05-18] MEDS ORDERED: Enoxaparin 40 MG/0.4 ML SYR SC SCH (09:00)
[2023-05-18] MEDS ORDERED: ARIPiprazole 10 MG Tab PO SCH (09:00)
[2023-05-18] MEDS ORDERED: FLUoxetine HCL 20 MG CAP PO SCH (09:00)
[2023-05-18] MEDS ORDERED: Gabapentin 300 MG Cap PO SCH (09:00)
[2023-05-18] MEDS ORDERED: Scopolamine Hydrobromide Patch TOP SCH (12:00)
[2023-05-18] MEDS ORDERED: CloNIDine 0.1 MG Tab PO ONE (13:00)
[2023-05-18] MEDS ORDERED: CloNIDine HCl 0.2 MG Tab PO ONE (13:15)
[2023-05-18] MEDS ORDERED: LORazepam 2 MG/ML 1ML Injection IV PRN (17:25)
[2023-05-18] MEDS ORDERED: OxyCODONE HCL 5 MG TAB PO PRN (17:25)
[2023-05-18] MEDS ORDERED: Acetaminophen 325 MG TABLET PO PRN (17:25)
--- NOTE | 2023-05-18 17:44 | NUR ---
PCU DAY SHIFT SUMMARY: ASSUMED CARE OF PT AFTER TRANSFER FROM MEDICAL FLOOR DUE TO CONCERNS OF TREMORS AND TAHCYCARDIA HR 130S. UPON ORIENTATION TO THE ROOM, PT TREMULOUS AND SHAKING IN BED AXO X3. POOR HISTORIAN TO HISTORY AND RECENT EVENTS IN HER MEDICAL CARE. PT CAME TO ER WITH C/O N/V IN WHICH SHE HAS A HX OF CYCLIC VOMITING AND CHRONIC CONSTIPATION. PT STATED NAUSEA THROUGHOUT THE SHIFT WITH NO RELIEF FROM SCOPALAMINE PATCH. NO VOMITING OCCURRED WHILE THIS RN ON SHIFT. PT DENIES ANY C/P OR SOB BUT HAS IRREGULAR BRETAHING PATTERN IN WHICH SHE HOLDS HER BREATH AND HAS A FORCEFUL EXHALE. PT WAS COACHED THROUGH BREATHING TECHNIQUES IN WHICH WERE UNSUCCESSFUL IN REGULATING BREATHING PATTERN. PT MOTHER ARRIVED AT BEDSIDE AND REPORTED THAT PT WAS ACTING OUT OF HER NORM DESPITE HER CHRONIC N/V CONSTIPATION. PUPILS WERE DIALATED 5MM AND CONCERN FOR DRUG RELATED WITHDRAWL WAS ADRESSED. UPON RESEARCHING MED REC, IT WAS FOUND THAT PT WAS RECEIVING CLONIDINE FROM 2 DIFFERENT TELEHEALTH DOCOTRS AND WAS TAKING A PRESCRIBED DOSE OF 0.1 CLONIDINE 3X A DAY TID. PT HAD SCRIPT FILLED FOR #270 April AND REPORTS SHE IS CURRENTLY OUT INDICATING SHE WAS LIKELY TAKING MORE CLONIDINE THAN PRESCRIBED. CLONIDINE ORDERED BY MD AND ONCE GIVEN, HR DROPPED FROM 120S TO 100S BUT STILL EXHIBITED TREMORS HOWEVER, WAS ABLE TO REST. PT EVENTUALLY HAD HR BACK TO 130S WITH TREMORS AND 1MG ATIVAN WAS ORDERED AND GIVEN WHICH LED TO A MORE RELAXED STATE WOTH HR 90S. CT OF ABDOMEN ORDERED. AWAITING IMAGING. VITALS REMAINED STABLE THROUGHOUT THE SHIFT. PT SLIGHTLY LESS DIAPHORETIC AND APPEARS MORE COMFORTBALE AT THIS TIME. PT WAS COOPERATIVE WITH STAFF BUT HAD FLAT AFFECT AND RARELY ENGAGED IN CONVERSATION. REPORTS CANNABIS USE BUT NO OTHER ILLICIT DRUG USE. BLADDER SCAN SHOWED 300ML. STRAIGHT CATH TO DRAIN 250MLS. PT HAS REMAINED NPO TO THIS TIME.
--- NOTE | 2023-05-18 18:40 | NUR ---
PT MOTHER LOVE BLACKMON: [phone]
[2023-05-18] MEDS ORDERED: CloNIDine HCl 0.2 MG Tab PO SCH (21:00)
[2023-05-18] MEDS ORDERED: Nicotine 21 MG PATCH TOP SCH (21:00)
[2023-05-18] MEDS ORDERED: Ampicillin Sod/Sulbactam Sod 3 GM in NS 100 ML IV SCH (22:00)
[2023-05-19 03:02] VITALS: BP 115/74
[2023-05-19 03:36] LABS: BASOPHILS ABSOLUTE AUTO 0.04 K/mm3 (0.00-0.23); BASOPHILS PERCENT AUTO 0 % (0-2); EOSINOPHILS ABSOLUTE AUTO 0.04 K/mm3 (0.00-0.68); EOSINOPHILS PERCENT AUTO 0 % (0-6); Hemoglobin 7.9 g/dL (11.5-16.0); IMMATURE GRAN ABSOLUTE AUTO 0.04 K/mm3 (0.00-0.10); IMMATURE GRAN PERCENT AUTO 0 % (0-1); LYMPHOCYTES ABSOLUTE AUTO 2.99 K/mm3 (0.84-5.20); LYMPHOCYTES PERCENT AUTO 23 % (21-46); MONOCYTES ABSOLUTE AUTO 0.82 K/mm3 (0.16-1.47); MONOCYTES PERCENT AUTO 6 % (4-13); Mean Corpuscular HGB 22.1 pg (26.0-34.0); Mean Corpuscular HGB Conc 30.4 g/dL (31.5-36.5); Mean Corpuscular Volume 73 fL (80-100); Mean Platelet Volume 8.6 fL (9.1-12.4); NEUTROPHILS ABSOLUTE AUTO 8.85 K/mm3 (1.96-9.15); NEUTROPHILS PERCENT AUTO 69 % (41-73); Platelet Count 665 K/mm3 (150-400); RDW Coefficient Variation 19.2 % (11.7-14.2); Red Blood Cell Count 3.58 M/mm3 (3.80-5.20); White Blood Cell Count 12.78 K/mm3 (4.00-11.30)
[2023-05-19 04:12] LABS: Bun/Creatinine Ratio 4.2 (12.0-20.0); Calcium, Blood 8.8 mg/dL (8.5-10.1); Creatinine, Blood 0.71 mg/dL (0.40-1.00)
--- NOTE | 2023-05-19 04:22 | NUR ---
SHIFT SUMMARY. SHIFT HAS BEEN UNREMARKABLE THUS FAR. PT AOX4, COOPERATIVE WITH CARE, ABLE TO MAKE NEEDS KNOWN. HAS NOT USED CALL LIGHT THUS FAR BUT ABLE TO MAKE NEEDS KNOWN WHEN PROMPTED. HAS SLEPT THROUGH MOST OF SHIFT AFTER SHIFT ASSESSMENT AND 2100 MEDICATION ADMINISTRATION. EARLY IN SHIFT, BLADDER SCAN SHOWED >600mls OF URINE. PT UNABLE TO VOID ON BSC BUT THEN WAS ABLE TO VOID ON TOILET. FOLLOW UP BLADDER SCAN SHOWED <100mls OF URINE. SINCE THAT TIME, PT HAS BEEN SLEEPING THROUGH SHIFT. MAINTAINS ADEQUATE SATURATION ON ROOM AIR AWAKE AND ASLEEP. TELE IN PLACE, RUNNING SINUS WITH NO CHANGES OR EVENTS THUS FAR. VITALS STABLE. REMAINS TREMULOUS WHEN AWAKE, AT TIMES MORE DRAMATIC AND AT TIMES MORE SUBDUED. BED LOCKED IN LOWEST POSITION. BED ALARM ACTIVE CALL LIGHT LEFT WITHIN REACH. CONTINUING TO MONITOR.
--- NOTE | 2023-05-19 05:27 | NUR ---
BLADDER SCAN THIS MORNING REVEALED <400mls URINE IN BLADDER. ENCOURAGED PT TO VOID DESPITE HER FEELING NO URGE. UNABLE TO VOID. CALLED TO NOTIFY HOSPITALIST DR. CLINTON. ORDERED TO PLACE PAYNE CATHETER. ORDER ENTERED. PAYNE TO BE PLACED.
[2023-05-19 05:54] LABS: Source, Urine Foley catheter
[2023-05-19 06:06] LABS: Appearance, Urine Clear (Clear); Bilirubin, Urine Neg (Neg); Blood, Urine 2+ (Neg); Color, Urine Yellow (P-Yellow); Glucose Qualitative, Urine Neg (Neg); Ketones, Urine 3+ (Neg); Leukocyte Esterase, Urine Neg (Neg); Nitrite, Urine Neg (Neg); Protein, Urine 1+ (Neg); Urobilinogen, Urine NORM (Normal)
[2023-05-19 07:00] LABS: Bacteria Rare /hpf; Squamous Epithelial Cells Few /hpf (Few); White Blood Cells, Urine 0-2 /hpf (0-5)
--- NOTE | 2023-05-19 07:15 | NUR ---
ASSUMPTION OF CARE: ASSUMED CARE OF PT AT 0700 REPORT FROM NOC SHIFT RN. UPON ASSESSMENT, PT SLEEPING IN BED. AROUSABLE TO SOUND WHEN THIS RN WALKED IN THE ROOM. NEURO STATUS AXO X4 HOWEVER, PT MENTATION IS IN AND OUT OF UNDERSTANDING RN INSTRUCTION. PUPILS DIALATED BUT APPEAR SMALLER IN SIZE THAN YESTERDAY ASSESSMENT BY THIS RN. PT DENIES ANY CHEST PAIN OR SOB. HR 130S SINUS TACH. ABDOMEN SOFT AND TENDER AND REPORTS NO PAIN AND DECREASE IN NAUSEA. PT EXHIBITS NO TREMORS AT THIS TIME. PT CONTINUES TO BE A FALL RISK DUE TO OVERESTAMATING ABILITIES. PLAN FOR US THIS AM DUE TO CT FINDINGS OF ENLARGED GALLBLADDER. PT UPDATED ON PLAN OF CARE.
--- NOTE | 2023-05-19 07:53 | NUR ---
AM UPDATE: THIS RN ENTERED PT ROOM @9066. UPON ENTERING PT SITTING UPRIGHT IN BED WITH PURSE IN LAP. PT WITH OPENED MEDICATION BOTTLE IN HAND. RETRIEVED MEDICATION BOTTLE FROM PT, MEDICATION LISTED LOREAZEPAM 1MG. PT DENIES TAKING MEDICATION. STATES "IT WAS ALREADY OPENED." CHARGE NURSE LARRY NOTIFIED. WHEN ASKED PT TELLS THIS RN AND ASSISTANT STORE LEADER THERE IS ADDITIONAL MEDICATION IN OTHER PERSON BELONING BAG. ALL MEDICATION PUT INTO CLEAR BAG AND LOCKED IN MEDICATION DRAWER OUTSIDE ROOM.
[2023-05-19 07:57] VITALS: BP 133/90
[2023-05-19] MEDS ORDERED: LORazepam 2 MG/ML 1ML Injection IV PRN (08:30)
[2023-05-19 11:16] VITALS: BP 144/87
[2023-05-19 15:20] VITALS: BP 145/81
--- NOTE | 2023-05-19 17:20 | NUR ---
PCU DAY SHIFT SUMMARY: RECEIVED REPORT AND ASSUMED CARE OF PT AT 0700 THIS AM. SINCE ADMISSION ASSESSMENT, PT CONDITIONED REMAINED UNCHANGED. PT CONTINUES TO BE AXO X 4 BUT DOES HAVE CONFUSION QUITE OFTEN OF SHORT TERM EVENTS. PUPILS REMAIN DIALATED AND PT IS BEING MONITORED FOR WITHDRAWAL SYMPTOMS. AROUND 0900 PT WAS FOUND TO BE LOOKING IN PURSE IN WHICH SHE HAD HOME MEDICATION BOTTLES. A BOTTLE OPEN WAS FOUND IN HER BED IN WHICH SHE EVENTUALLY ADMITTED TO DR. BIRD THAT SHE HAD TAKEN HER HOME MEDICATIONS UNADVISED BY MEDICAL STAFF. PT WAS THEN PLACED ON PRECAUTIONS FOR SI AND 0900 DOSE OF CLONIDINE AND ATIVAN PRN DOSE WAS WITHHELD. PT DENIED ANY CHEST PAIN OR SOB. NO IRREGULAR BRETAHING PATTERN NOTED. REMAINS TACHY AT 120-130S. SLIGHT IN CREASE IN TEMP FROM 99.4-100.0 IN WHICH TYLENOL WAS GIVEN AND TEMP DECREASED TO 98.8. PT WAS ABLE TO VOID AND DID NOT NEED STRAIGHT CATHED TODAY. REMAINS DIAPHORETIC AND REPORTS THAT SHE NO LONGER WANTS TO BE IN THE HOSPITAL. SHE WAS ADVISED THAT THIS WOULD BE THE BEST IDEA FOR HER TO REMAIN IN PCU FOR CONTINUED CARE. NO N/V NOTED DURING SHIFT. PT ABLE TO EAT SMALL PARTS OF MEALS. NO BM TODAY. WILL CONTINUE TO PROVIDE CARE ORDERED AND REQUESTED UNTIL REPORT TO PAULO SPRINGER.
[2023-05-19 20:24] VITALS: BP 152/89
[2023-05-19] MEDS ORDERED: Melatonin 5 MG Tablet PO PRN (21:40)
[2023-05-20 00:25] VITALS: BP 127/67
[2023-05-20 03:43] VITALS: BP 148/89
--- NOTE | 2023-05-20 04:55 | NUR ---
SHIFT SUMMARY. OVERALL, SHIFT HAS BEEN UNREMARKABLE. PT HAS BEEN COOPERATIVE WITH CARE, PLEASANT, ABLE TO MAKE NEEDS KNOWN, USES CALL LIGHT SPORADICALLY. LESS SOMNOLENT THAN PREVIOUS SHIFT WITH THIS RN. PER DAY SHIFT REPORT, PT HAD HOME MEDICATIONS ON DAY SHIFT YESTERDAY AND WAS TAKING HOME MEDICATIONS IN ADDITION TO HOSPITAL PRESCRIBED MEDICATIONS. EDUCATION ON SHIFT ONSET ON IMPORTANCE OF NOT TAKING MEDICATIONS NOT PROVIDED BY STAFF WHILE ADMITTED. PT DENIED HAVING ANY MORE MEDICATIONS IN PER POSSESSION AT THIS TIME. HAS OVERALL BEEN MILDLY MORE ANXIOUS, RESTLESS THAN PREVIOUS SHIFT WITH THIS RN BUT NOT DRAMATICALLY SO. HAS SLEPT SPORADICALLY THROUGHOUT SHIFT. STEADY SBA TRANSFER TO BSC. MORE CONSISTENT URINE OUTPUT THAN PREVIOUS SHIFT WITH THIS RN. STILL WILL GENERALLY NOT GO UNLESS PROMPTED TO DO SO. TELE ON THROUGHOUT SHIFT, RUNNING SINUS WITH NO CHANGES OR EVENTS THUS FAR. HAS MAINTAINED ADEQUATE SATURATION ON ROOM AIR. VITALS HAVE BEEN STABLE, MILDLY ELEVATED SBP. BED LOCKED IN LOWEST POSITION. CALL LIGHT LEFT WITHIN REACH. CONTINUING TO MONITOR.
[2023-05-20 07:57] VITALS: BP 153/101
[2023-05-20 08:28] LABS: Hematocrit 30.3 % (33.0-51.0); Hemoglobin 9.2 g/dL (11.5-16.0)
[2023-05-20 09:01] LABS: Hematocrit 30.3 % (33.0-51.0); Hemoglobin 9.2 g/dL (11.5-16.0); Mean Corpuscular HGB 21.6 pg (26.0-34.0); Mean Corpuscular HGB Conc 30.4 g/dL (31.5-36.5); Mean Corpuscular Volume 71 fL (80-100); Mean Platelet Volume 8.4 fL (9.1-12.4); Platelet Count 689 K/mm3 (150-400); RDW Coefficient Variation 19.2 % (11.7-14.2); RDW Standard Deviation 48.3 fL (35.1-46.3); Red Blood Cell Count 4.25 M/mm3 (3.80-5.20); White Blood Cell Count 8.43 K/mm3 (4.00-11.30)
[2023-05-20] MEDS ORDERED: LORazepam 1 MG Tab PO ONE (10:45)
[2023-05-20 11:06] VITALS: BP 134/81
[2023-05-20] MEDS ORDERED: METF500 PO (11:30)
[2023-05-20] MEDS ORDERED: CATAPRES0.3 MG PO (11:31)
[2023-05-20] MEDS ORDERED: NICO21TP TOP (11:31)
--- NOTE | 2023-05-20 12:35 | NUR ---
DISCHARGE: PT DCD HOME AT 1230 FROM PCU ROOM 5. WHEELED OUT BY BALANCE TRUER. PT LEAVIING IN STABLE CONDITION WITH ALL QUESTIONS ADRESSED. ALL BELONGINGS WITH PT AND ADVISED TO CALL PCU WITH ANY CONCERNS.
[2023-05-20 23:31] LABS: CK TOTAL 1209 U/L (26-192); CK-BB 0 % (0-0); CK-MACRO TYPE I 0 % (0-0); CK-MACRO TYPE II 0 % (0-0); CK-MB 0 % (0-4); CK-MM 100 % (96-100)
== END 2023-05-20 12:35 | disposition home or self-care (01) | DRG 897 ==
LOC: ER 15:20 → MEDS 15:21 → PCU 15:21 → MEDS 05-18 03:23 → PCU 05-18 07:39
PROVIDERS: Emergency Medicine; Family Medicine; Hospitalist; ADMIT Internal Medicine
DX: F13.139 Sedative, hypnotic or anxiolytic abuse with withdrawal, unspecified (principal); E87.20 Acidosis, unspecified; R65.10 Systemic inflammatory response syndrome (SIRS) of non-infectious origin without acute organ dysfunction; G93.40 Encephalopathy, unspecified; K82.1 Hydrops of gallbladder; F12.13 Cannabis abuse with withdrawal; R11.2 Nausea with vomiting, unspecified; F19.939 Other psychoactive substance use, unspecified with withdrawal, unspecified; G89.29 Other chronic pain; M54.9 Dorsalgia, unspecified; K21.9 Gastro-esophageal reflux disease without esophagitis; F17.210 Nicotine dependence, cigarettes, uncomplicated; K59.09 Other constipation; E86.0 Dehydration; E87.6 Hypokalemia; F32.A Depression, unspecified; R25.1 Tremor, unspecified; D25.9 Leiomyoma of uterus, unspecified; R33.9 Retention of urine, unspecified; Z86.711 Personal history of pulmonary embolism; Z86.79 Personal history of other diseases of the circulatory system; Q05.9 Spina bifida, unspecified
CPT/HCPCS: 12002; 36415; 51701; 74018; 74019; 74177; 76705; 80048; 80053; 81001; 81025; 82550; 82552; 83605; 83690; 83735; 83880; 85014; 85018; 85025; 85027; 85610; 87040; 96361; 96365; 96372; 96375; 96376; 99285-25; A9270; C9113; G0378; J0295; J1200; J1630; J1650; J1790; J2060; J2765; J3010; J3480; J7030; J7050; J7120; J7121; Q9967

== ENCOUNTER 2023-06-16 13:00 | Emergency (ER) | payer OTHER ==
[~2023-06-16] VITALS: Ht 167.6 cm; Wt 95.2 kg
[~2023-06-16 13:00] MED LIST changes: +CATAPRES0.3 MG PO; +METF500 PO
[2023-06-16 14:29] LABS: Albumin, Blood 3.1 g/dL (3.4-5.0); Albumin/Globulin Ratio 0.6 (0.8-1.8); Bilirubin, Total 0.3 mg/dL (0.1-1.0); Bun/Creatinine Ratio 10.5 (12.0-20.0); Calcium, Blood 9.6 mg/dL (8.5-10.1); Creatinine, Blood 0.76 mg/dL (0.40-1.00); Globulin, Blood 5.6 g/dL (2.2-4.0); Potassium, Blood 3.6 mmol/L (3.5-5.5); Total Protein, Blood 8.7 g/dL (6.4-8.2)
[2023-06-16 14:49] LABS: BASOPHILS ABSOLUTE AUTO 0.04 K/mm3 (0.00-0.23); BASOPHILS PERCENT AUTO 0 % (0-2); EOSINOPHILS ABSOLUTE AUTO 0.01 K/mm3 (0.00-0.68); EOSINOPHILS PERCENT AUTO 0 % (0-6); Hematocrit 36.5 % (33.0-51.0); IMMATURE GRAN ABSOLUTE AUTO 0.11 K/mm3 (0.00-0.10); IMMATURE GRAN PERCENT AUTO 1 % (0-1); LYMPHOCYTES ABSOLUTE AUTO 0.91 K/mm3 (0.84-5.20); LYMPHOCYTES PERCENT AUTO 5 % (21-46); MONOCYTES ABSOLUTE AUTO 0.64 K/mm3 (0.16-1.47); MONOCYTES PERCENT AUTO 3 % (4-13); Mean Corpuscular HGB 21.4 pg (26.0-34.0); Mean Corpuscular HGB Conc 30.1 g/dL (31.5-36.5); Mean Corpuscular Volume 71 fL (80-100); Mean Platelet Volume 8.9 fL (9.1-12.4); NEUTROPHILS ABSOLUTE AUTO 18.01 K/mm3 (1.96-9.15); NEUTROPHILS PERCENT AUTO 91 % (41-73); Platelet Count 586 K/mm3 (150-400); RDW Coefficient Variation 19.8 % (11.7-14.2); RDW Standard Deviation 48.4 fL (35.1-46.3); Red Blood Cell Count 5.13 M/mm3 (3.80-5.20); White Blood Cell Count 19.72 K/mm3 (4.00-11.30)
[2023-06-16] MEDS ORDERED: Droperidol 5 mg/2 ml Vial IV ONE (15:45)
[2023-06-16] MEDS ORDERED: NS 1,000 ML IV SCH (15:45)
[2023-06-16] MEDS ORDERED: Metoclopramide HCl 5MG / ML 2ML Vial IV ONE (15:45)
[2023-06-16] MEDS ORDERED: PROZAC40 MG PO (16:04)
[2023-06-16] MEDS ORDERED: METO10 PO (18:15)
[2023-06-16 18:24] VITALS: BP 95/55
== END 2023-06-16 18:27 | disposition home or self-care (01) ==
LOC: ER 13:00
PROVIDERS: Emergency Medicine
DX: R11.15 Cyclical vomiting syndrome unrelated to migraine (principal); F17.200 Nicotine dependence, unspecified, uncomplicated; K21.9 Gastro-esophageal reflux disease without esophagitis; Z86.69 Personal history of other diseases of the nervous system and sense organs; Z79.84 Long term (current) use of oral hypoglycemic drugs; Z79.899 Other long term (current) drug therapy; Z88.5 Allergy status to narcotic agent; Z88.8 Allergy status to other drugs, medicaments and biological substances
CPT/HCPCS: 80053; 83690; 85025; 96361; 96374; 96375; 99284-25; J1790; J2765; J7030